=== PATIENT | male | born 1950 | race Caucasian/White ===

== ENCOUNTER → 2021-03-10 | Outpatient (CLI) | payer MEDICARE ==
--- NOTE | 2021-03-10 11:55 | ECHOF ---
Referral Reason:CAD MEASUREMENTS -------- HEIGHT: 182.9 cm WEIGHT: 102.1 kg BP: 133/87 RVIDd: 3.4 cm (< 3.3) IVSd: 1.2 cm (0.6 - 1.1) LVIDd: 5.0 cm (3.9 - 5.3) LVPWd: 1.2 cm (0.6 - 1.1) IVSs: 1.4 cm LVIDs: 4.5 cm LVPWs: 1.6 cm LA Diam: 3.8 cm (2.7 - 3.8) LAESV Index (A-L): 20.32 ml/m Ao Diam: 3.7 cm (2.0 - 3.7) AV Cusp: 2.0 cm (1.5 - 2.6) MV EXCURSION: 22.907 mm (> 18.000) MV EF SLOPE: 191 mm/s (70 - 150) EPSS: 2.1 cm FINDINGS -------- Atrial fibrillation. This was a technically adequate study. The left ventricular size is normal. There is borderline concentric left ventricular hypertrophy. Overall left ventricular systolic function is moderate-severely impaired with, an EF between 30 - 35 %. The right ventricle is mildly enlarged. Normal LA size by volume 22+/-6 ml/m2. The right atrium is normal in size. Interatrial and interventricular septum intact. The aortic valve is trileaflet, and appears structurally normal. No aortic stenosis or regurgitation. The mitral valve is normal. Mild tricuspid regurgitation present. Unable to estimate RVSP due to inadequate TR jet spectral dop pler profile. There is no pulmonic regurgitation present. The aortic root size is normal. Normal inferior vena cava with normal inspiratory collapse consistent with estimated right atrial pre ssure of 5 mmHg. There is no pericardial effusion. CONCLUSIONS -------- 1. The left ventricular size is normal. 2. There is borderline concentric left ventricular hypertrophy. 3. Overall left ventricular systolic function is moderate-severely impaired with, an EF between 30 - 35 %. 4. The right ventricle is mildly enlarged. 5. The aortic valve is trileaflet, and appears structurally normal. No aortic stenosis or regurgitati on. 6. Mild tricuspid regurgitation present. 7. The aortic root size is normal. 8. There is no pericardial effusion. COMMISSIONING AGENT: Sachi Oscar RDCS
== END | disposition home or self-care (01) ==
LOC: RADECHMAIN 08:39
PROVIDERS: ATTEND Family Medicine
DX: I25.10 Atherosclerotic heart disease of native coronary artery without angina pectoris (principal); I51.7 Cardiomegaly; I35.8 Other nonrheumatic aortic valve disorders; I48.91 Unspecified atrial fibrillation
CPT/HCPCS: 93306

== ENCOUNTER → 2021-03-10 | Outpatient (CLI) | payer MEDICARE ==
[2021-03-10 08:46] LABS: Appearance,Urine Clear (Clear); Bacteria,Urine Rare /hpf; Bilirubin,Urine 1+ (Negative); Blood,Urine Negative (Negative); Color,Urine Yellow; Glucose,Urine (UA) Negative (Negative); Hyaline Casts,Urine 15 /lpf (0-2); Ketones,Urine 1+ (Negative); Leukocyte Esterase,Urine Negative (Negative); Mucus,Urine Occasional /hpf; Nitrite,Urine Negative (Negative); Protein,Urine 1+ (Negative); WBC,Urine 1 /hpf (0-5)
[2021-03-10 11:02] LABS: HCT 43.1 % (39.6-50.0); HGB 13.8 g/dL (13.0-17.0); MCH 34.1 pg (27.0-32.0); MCV 106.4 fL (80.0-97.0); Mean Platelet Volume 11.5 fL (9.5-12.2); Platelet Count 144 X 10*3/uL (140-440); RBC 4.05 X 10*6/uL (4.40-5.60); RDW 13.2 % (11.5-14.5); WBC 5.45 X 10*3/uL (4.50-10.00)
[2021-03-10 13:01] LABS: Basophils # (A) 0.02 X 10*3/uL (0.00-0.10); Basophils % (A) 0.4 %; Eosinophils # (A) 0.05 X 10*3/uL (0.04-0.35); Eosinophils % (A) 0.9 %; Lymphocytes # (A) 1.67 X 10*3/uL (0.90-5.00); Lymphocytes % (A) 30.6 %; Monocytes # (A) 0.56 X 10*3/uL (0.20-1.00); Monocytes % (A) 10.3 %; Neutrophils # (A) 3.13 X 10*3/uL (1.80-7.70); Neutrophils % (A) 57.4 %
[2021-03-10 13:10] LABS: ALT 36 U/L (10-49); AST 33 U/L (14-35); African American GFR (CKD) 87.4 (60.0-200.0); Albumin 3.9 g/dL (3.8-4.9); Albumin/Globulin Ratio 1.63 (1.60-3.17); Alkaline Phosphatase 55 U/L (41-126); Blood Urea Nitrogen 12.2 mg/dL (9.0-27.0); Calcium 9.5 mg/dL (8.7-10.3); Carbon Dioxide 26.2 mmol/L (21.6-31.8); Chloride 103 mmol/L (96-109); Chol/HDL Ratio 1.93 Ratio; Globulin 2.4 g/dL (1.6-3.3); Glucose 91 mg/dL (70-110); LDL Cholesterol,Calculated 62.2 mg/dL (0.0-131.0); Non-African American GFR(CKD) 75.4 (60.0-200.0); Potassium 4.8 mmol/L (3.5-5.5); Sodium 141 mmol/L (135-145); Total Protein 6.3 g/dL (6.2-8.2); VLDL Calculation 15.52 mg/dL (5.00-40.00)
== END | disposition home or self-care (01) ==
LOC: LABWHC1 07:25
PROVIDERS: ATTEND Family Medicine
DX: Z00.00 Encounter for general adult medical examination without abnormal findings (principal)
CPT/HCPCS: 36415; 80053; 80061; 81001; 85025

== ENCOUNTER → 2021-03-17 | Outpatient (CLI) | payer MEDICARE | END | disposition home or self-care (01) | LOC: LABWHC1 07:13 | PROVIDERS: ATTEND Psychiatry & Neurology Neurology | DX: I48.21 Permanent atrial fibrillation (principal); I61.9 Nontraumatic intracerebral hemorrhage, unspecified; R56.9 Unspecified convulsions | CPT/HCPCS: 36415; 80164; 80177 ==

== ENCOUNTER → 2021-03-27 | Outpatient (CLI) | payer MEDICARE ==
[2021-03-27 11:13] LABS: HCT 42.1 % (39.0-53.0); HGB 14.4 gm/dL (13.0-17.5); MCH 36.3 pg (25.0-35.0); MCHC 34.3 g/dL (31.0-37.0); MCV 105.9 fL (80.0-100.0); Macrocytosis Moderate; Mean Platelet Volume 8.3; Platelet Count 124 k/uL (150-450); RBC 3.98 m/uL (4.30-5.90); RDW 14.6 % (11.5-15.5); WBC 6.2 k/uL (3.8-10.6)
[2021-03-27 11:22] LABS: Potassium 5.2 mmol/L (3.5-5.1)
== END | disposition home or self-care (01) ==
LOC: LABPAT 09:47
PROVIDERS: ATTEND Internal Medicine
DX: Z01.812 Encounter for preprocedural laboratory examination (principal); I42.0 Dilated cardiomyopathy
CPT/HCPCS: 36415; 80051; 82565; 84520; 85027

== ENCOUNTER 2021-04-06 06:07 | Day surgery (SDC) | payer MEDICARE ==
[2021-04-05 09:25] VITALS: BMI 29.0
[~2021-04-06 06:07] MED LIST: ALPRAZolam 0.25 MG TAB PO PRN; ALPRAZolam 0.5 MG TAB PO PRN; ASPIRIN 325 MG TAB PO STA; NITROGLYCERIN SL TABS 0.4 MG TAB SUBLINGUAL PRN; SODIUM CHLORIDE 0.9% 1,000 ML in EMPTY BAG 1 BAG IV SCH
[2021-04-06] MEDS ORDERED: HEPARIN SODIUM,PORCINE 10,000 UNIT in SODIUM CHLORIDE 0.9% 1,000 ML IRRIGATION PRN (07:00)
[2021-04-06] MEDS ORDERED: HEPARIN SODIUM,PORCINE 2,500 UNIT in SODIUM CHLORIDE 0.9% 250 ML IRRIGATION PRN (07:00)
[2021-04-06 07:23] LABS: Basophils % (A) 1 %; Eosinophils # (A) 0.1 k/uL (0-0.7); Eosinophils % (A) 2 %; HCT 42.1 % (39.0-53.0); HGB 14.3 gm/dL (13.0-17.5); Lymphocytes # (A) 2.1 k/uL (1.0-4.8); Lymphocytes % (A) 31 %; MCH 35.7 pg (25.0-35.0); MCHC 33.9 g/dL (31.0-37.0); MCV 105.3 fL (80.0-100.0); Macrocytosis Slight; Mean Platelet Volume 8.8; Monocytes % (A) 14 %; Neutrophils # (A) 3.4 k/uL (1.3-7.7); Neutrophils % (A) 50 %; Platelet Count 148 k/uL (150-450); RBC 3.99 m/uL (4.30-5.90); WBC 6.8 k/uL (3.8-10.6)
[2021-04-06] MEDS ORDERED: VERAPAMIL 2.5 MG/ML 2 ML AMP ONE ×2 (07:25→08:26)
[2021-04-06] MEDS ORDERED: LIDOCAINE 1% INJ 10MG/ML (20 ML MDV) ONE (07:25)
[2021-04-06 07:33] VITALS: TEMP 97.8
[2021-04-06 07:35] LABS: Calcium 9.8 mg/dL (8.4-10.2); Potassium 4.4 mmol/L (3.5-5.1)
[2021-04-06] MEDS ORDERED: HEPARIN SODIUM 1,000 UN/ML (10ML VL) ONE (07:49)
[2021-04-06] MEDS ORDERED: LIDOCAINE 1% INJ 10MG/ML (20 ML MDV) SQ ONE (08:20)
[2021-04-06] MEDS ORDERED: fentaNYL (PF) 50 MCG/ML 5 ML AMP IV ONE (08:20)
[2021-04-06] MEDS: MIDAZOLAM 2 MG/2 ML VIAL IV ONE ×2 (08:20→08:26)
[2021-04-06] MEDS ORDERED: VERAPAMIL SYRINGE (5 MG/10 ML) INTRAARTER ONE (08:22)
[2021-04-06] MEDS ORDERED: HEPARIN SODIUM 1,000 UN/ML (10ML VL) IV ONE (08:29)
[2021-04-06] MEDS ORDERED: IOPAMIDOL-370 125ML BTL INJ ONE (08:40)
[2021-04-06 10:56] VITALS: RESP 16
[2021-04-06 12:02] VITALS: BP 95/59; PULSE 78
--- NOTE | 2021-04-06 23:01 | P.CARDCATH ---
Description of Procedure: PROCEDURES PERFORMED: Left heart catheterization, bilateral coronary angiography INDICATION: Cardiomyopathy CONSENT:I have discussed the risks, benefits and alternative therapies for the above-mentioned procedure and for both sedation/analgesia as well as necessary blood product administration, if indicated, as they pertain to this patient. The patient has indicated understanding and acceptance of the risks and procedures discussed. PROCEDURE: After the risks, benefits and alternatives of the above mentioned procedure explained in detail with the patient, informed consent was obtained. Patient was taken to the catheterization lab and prepped and draped in usual fashion. 1% lidocaine was used to anesthetize the right radial artery. A 6- Lithuanian sheath was placed in the right radial artery using modified Seldinger technique. Left coronary angiography was performed with a 5-Lithuanian JL 3.5 catheter and right coronary angiography was performed with a 5-Lithuanian JR5 catheter in various views. A 5-Lithuanian FR5 catheter was inserted into the left ventricle and pressure measurements were obtained. The right radial sheath was removed and a TR band was placed with hemostasis achieved. The patient tolerated the procedure well. Patient was transported back to the post catheterization holding area in stable condition. Conscious Sedation: Patient was monitored under the direct supervision of vision of myself for conscious sedation using Versed and fentanyl for a total duration of 18 minutes HEMODYNAMICS: Aorta: 92/60 LV: 88/1, LVEDP 4 SELECTIVE CORONARY ARTERIOGRAPHY: LEFT MAIN: The left main is a large caliber vessel which bifurcates into the LAD and circumflex. There is no significant stenosis. LEFT ANTERIOR DESCENDING CORONARY ARTERY: LAD is a large caliber vessel which wraps around to the apex. There is no significant stenosis. LEFT CIRCUMFLEX CORONARY ARTERY: Left circumflex is a moderate caliber vessel without significant stenosis. RIGHT CORONARY ARTERY: The right coronary artery is a large caliber vessel which gives off a PDA and PLV branch and is the dominant vessel. There is no significant stenosis. FINAL IMPRESSION: 1. Normal coronary arteries as described above. 2. Low normal left sided filling pressures PLAN: 1. Aggressive risk factor modification per most recent ACC/AHA guidelines. 2. Optimize heart failure regimen as able. May consider decreasing diuretics. 3. Follow-up in the office in 1-2 weeks.
== END 2021-04-06 12:53 | disposition home or self-care (01) ==
LOC: CATHCVL 06:07
PROVIDERS: ATTEND Internal Medicine
DX: I42.9 Cardiomyopathy, unspecified (principal); I11.0 Hypertensive heart disease with heart failure; I50.23 Acute on chronic systolic (congestive) heart failure; E78.5 Hyperlipidemia, unspecified; I48.92 Unspecified atrial flutter; I48.19 Other persistent atrial fibrillation; Z86.73 Personal history of transient ischemic attack (TIA), and cerebral infarction without residual deficits; Z20.822 Contact with and (suspected) exposure to COVID-19; F17.210 Nicotine dependence, cigarettes, uncomplicated
CPT/HCPCS: 93458; 80048; 85025; 87635; C1894; C1769; J2250; J2001; J3010; J1644; Q9967

== ENCOUNTER → 2021-08-16 | Outpatient (CLI) | payer MEDICARE ==
--- NOTE | 2021-08-16 12:06 | CT ---
EXAMINATION TYPE: CT brain gracy [facility] DATE OF EXAM: 08/16/2021 COMPARISON: NONE HISTORY: TIA symptoms, unspecified for 4 days. History of stroke 2016. Unsteady gait. CT DLP: 1877 mGycm. Automated Exposure Control for Dose Reduction was Utilized. TECHNIQUE: CT scan of the head and cervical spine are performed without contrast. FINDINGS: There is no acute intracranial hemorrhage. Mild to moderate ventricular and sulcal promin ence. Old infarct in the left frontal lobe MCA distribution. Volume loss causes slight midline shift. Low-attenuation in the periventricular white matter. Globes are intact and visualized paranasal sinu ses are clear. Cervical spine is visualized in its entirety from C1 through upper thoracic levels and demonstrates s atisfactory alignment without evidence of acute fracture or dislocation. Demineralization is present . Prevertebral soft tissue appears within normal limits. The C1-C2 articulation is within normal armando its on the coronal images. Vertebral body heights are maintained. Moderate disc space narrowing with disc calcification C5-C6 and C6-C7 levels. Moderate to severe disc space narrowing and anterior spurr ing C7-T1 level. Posterior spur disc complex effaces the anterior thecal sac C5-C6 and C7-T1 levels. Axial images show multilevel uncovertebral facet degenerative changes contributing to multilevel bila teral neural foraminal narrowing noted at right C2-C3 and bilateral C3-C4 levels for reference. There is [id number] narrowing at right C5-C6 level due to marginal spurring. Thyroid gland is norm al in size. Lung apices show no pneumothorax. Moderate to severe calcified plaque left carotid bulb e xtends into the proximal internal carotid artery. Consider carotid ultrasound follow-up to exclude si gnificant stenosis. IMPRESSION: 1. There is mild to moderate diffuse cerebral atrophy and chronic small vessel ischemic change. Old l eft-sided infarct with volume loss noted. 2. Demineralization with multilevel degenerative changes greatest in the mid to lower cervical spine as detailed above. Attention to left proximal internal carotid artery as noted above.
== END | disposition home or self-care (01) ==
LOC: RADCTMAIN 08:28
PROVIDERS: ATTEND Family Medicine
DX: I67.82 Cerebral ischemia (principal); M47.812 Spondylosis without myelopathy or radiculopathy, cervical region; G31.9 Degenerative disease of nervous system, unspecified; Z86.73 Personal history of transient ischemic attack (TIA), and cerebral infarction without residual deficits
CPT/HCPCS: 70450; 72125

== ENCOUNTER → 2021-08-25 | Outpatient (CLI) | payer MEDICARE ==
--- NOTE | 2021-08-25 13:10 | US ---
EXAMINATION TYPE: US carotid duplex BILAT DATE OF EXAM: 08/25/2021 COMPARISON: NONE CLINICAL HISTORY: G45.9 TIA I48.91 ATRIAL FIB. EXAM MEASUREMENTS: RIGHT: Peak Systolic Velocity (PSV) cm/sec ----- Right CCA: 71.0 ----- Right ICA: 86.5 ----- Right ECA: 81.2 ICA/CCA ratio: 1.22 RIGHT: End Diastole cm/sec ----- Right CCA: 9.7 ----- Right ICA: 7.5 ----- Right ECA: 5.9 LEFT: Peak Systolic Velocity (PSV) cm/sec ----- Left CCA: 58.6 ----- Left ICA: 93.5 ----- Left ECA: 66.1 ICA/CCA ratio: 1.52 LEFT: End Diastole cm/sec ----- Left CCA: 7.5 ----- Left ICA: 20.4 ----- Left ECA: 3.2 VERTEBRALS (direction of flow): Right Vertebral: Antegrade Left Vertebral: Antegrade Rhythm: Normal No significant stenosis seen. No elevated velocities. IMPRESSION: No evidence for hemodynamically significant stenosis Criteria for Assigning % of Stenosis / Diameter reduction (Estimation based on the indirect measurements of the internal carotid artery velocities (ICA PSV). 1. Normal (no stenosis)=ICA PSV < 125 cm/s: ratio < 2.0: ICA EDV<40 cm/s. 2. Less than 50% stenosis=ICA PSV < 125 cm/s: ratio < 2.0: ICA EDV<40 cm/s. 3. 50 to 69% stenosis=ICA PSV of 125 to 230 cm/s: ration 2.0 ? 4.0: ICA EDV 40-100 cm/s. 4. Greater than 70% stenosis to near occlusion= ICA PSV > 230 cm/s: ratio > 4.0: ICA EDV > 100 cm/s. 5. Near occlusion= ICA PSV velocities may be low or undetectable: variable ratio and ICA EDV. 6. Total occlusion=unable to detect flow.
== END | disposition home or self-care (01) ==
LOC: RADUSWWP 12:35
PROVIDERS: ATTEND Family Medicine
DX: G45.9 Transient cerebral ischemic attack, unspecified (principal); I48.91 Unspecified atrial fibrillation
CPT/HCPCS: 93880

== ENCOUNTER → 2021-10-02 | Outpatient (CLI) | payer MEDICARE ==
--- NOTE | 2021-10-02 09:47 | CT ---
EXAMINATION TYPE: CT cervical spine wo con DATE OF EXAM: 10/02/2021 COMPARISON: CT dated 08/16/2021 HISTORY: Cervicalgia CT DLP: 400.10 mGycm Automated exposure control for dose reduction was used. TECHNIQUE: CT scan of the cervical spine is obtained without contrast, axial images are obtained, sa gittal and coronal reformatted images are also reviewed. FINDINGS: Artifactual images. Preserved cervical curvature. No significant anterolisthesis or retrolisthesis. No definite vertebral body collapse. Unremarkable atlantoaxial and atlantooccipital articulations. Degenerative changes of the cervical spine with multilevel opposing endplate osteophytosis, degenerat ed discs and uncovertebral osteoarthropathy, most evident at C5-6, C6-7, C7-T1 and T1-2 levels. Multi level facet osteoarthropathy is also noted most evident at right C2-3 facet. At C2-3 level: Bilateral facet osteoarthropathy with small posterior disc osteophyte complex, causing mild central spinal canal stenosis and moderate to severe right neuroforaminal stenosis. At C3-4 level: Posterior disc osteophyte complex, associated with bilateral facet osteoarthropathy, m ore on the right side, causing moderate central spinal canal stenosis and moderate bilateral neurofor aminal stenosis, more on the right side. At C4-5 level: Posterior disc osteophyte complex with mild bilateral facet osteoarthropathy, causing mild central spinal canal stenosis and mild right neuroforaminal stenosis. At C5-6 level: Posterior disc osteophyte complex associated with bilateral facet osteoarthropathy, ca using moderate central spinal canal stenosis, moderate to severe left and severe right neuroforaminal stenosis. At C6-7 level: Posterior disc osteophyte complex, causing mild central spinal canal stenosis and mode rate bilateral neuroforaminal stenosis. Suspected 9 mm polyp/retention cyst along the right side of the oropharynx, for clinical correlation/ correlation with endoscopy results. Scattered arterial atherosclerotic calcifications. Suspected 2 cm left thyroid lobe posterior nodule, please correlate with thyroid ultrasound results. No paraspinal lesion. IMPRESSION: Degenerative changes of the cervical spine with multilevel DDD, central spinal canal stenosis and lisa roforaminal stenosis as detailed above. Recommend clinical correlation. Further MRI assessment can be considered if clinically required. Other incidental findings and recommendations as described above.
--- NOTE | 2021-10-02 10:30 | CT ---
EXAMINATION TYPE: CT thoracic spine wo con DATE OF EXAM: 10/02/2021 COMPARISON: None available HISTORY: Thoracic pain CT DLP: 1615.40 mGycm Automated exposure control for dose reduction was used. TECHNIQUE: Multiplanar CT scan of the thoracic spine without IV contrast administration. FINDINGS: Mild dextro scoliosis of the midthoracic spine, possibly positional. No significant anterolisthesis o r retrolisthesis. No definite vertebral body collapse or acute displaced fracture. Degenerative diaz es of the thoracic spine with multilevel opposing endplate osteophytosis, degenerated discs, disc jacinta cification and facet osteoarthropathy. Severe degenerative changes are seen at L1-2 level. At C6-7 level: left paracentral posterior disc protrusion with calcification, causing no significant central spinal canal stenosis or neuroforaminal stenosis. At T11-12 level: Marked ligamentum flavum hypertrophy and calcification, causing moderate central spi nal canal stenosis and bilateral neuroforaminal stenosis. At T12-L1 level: Posterior disc osteophyte complex, causing mild central spinal canal stenosis and mi ld bilateral neuroforaminal stenosis, more on the right side. At L1-2 level: Markedly degenerated disc with large posterior osteophytosis, ligamentum flavum hypert rophy and bilateral facet osteoarthropathy, causing severe central spinal canal stenosis and severe b ilateral neuroforaminal stenosis compressing the corresponding L1 nerve root. No paraspinal lesion. Scattered arterial atherosclerotic calcifications. Hepatic hypodensities, possi sindhu representing hepatic cysts. Suspected tiny gallbladder calculus. 17 mm left adrenal adenoma. 8mm left lower lobe posterior pleural-based nodule. Minimal infiltration is seen at the central portion o f the left lower lobe. Recommend precautionary follow-up CT scan in 3 months for reassessment. IMPRESSION: Degenerative changes of the thoracic spine as detailed above. Significant degenerative changes, spina l canal stenosis and neuroforaminal stenosis at L1-2 level as described above. Recommend clinical cor relation. Further MRI assessment can be considered. Other incidental findings and recommendations as detailed above.
== END | disposition home or self-care (01) ==
LOC: RADCTMAIN 08:07
PROVIDERS: ATTEND Orthopaedic Surgery
DX: M47.812 Spondylosis without myelopathy or radiculopathy, cervical region (principal); M99.71 Connective tissue and disc stenosis of intervertebral foramina of cervical region; M47.814 Spondylosis without myelopathy or radiculopathy, thoracic region; M99.74 Connective tissue and disc stenosis of intervertebral foramina of sacral region
CPT/HCPCS: 72125; 72128

== ENCOUNTER → 2021-10-20 | Outpatient (CLI) | payer MEDICARE | END | disposition home or self-care (01) | LOC: LABWHC1 07:19 | PROVIDERS: ATTEND Psychiatry & Neurology Neurology | DX: R56.9 Unspecified convulsions (principal) | CPT/HCPCS: 36415; 80164; 80177 ==

== ENCOUNTER → 2021-12-22 | Outpatient (CLI) | payer MEDICARE ==
--- NOTE | 2021-12-22 08:03 | CT ---
EXAMINATION TYPE: CT lumbar spine wo con DATE OF EXAM: 12/22/2021 6:59 AM COMPARISON: None. HISTORY: Pain, Difficulty walking CT DLP: 744.8 mGycm Automated exposure control for dose reduction was used. Unenhanced CT of the lumbar spine was performed. Bone and soft tissue window settings are submitted as well as coronal and sagittal reconstructions. There are 5 lumbar-type vertebra. There is levoconvex scoliosis centered near the thoracolumbar junct ion. Alignment is straightened on the sagittal images with slight grade 1 retrolisthesis L1 on L2 and L3 on L4 noted. Vertebral body heights are maintained. There is advanced disc space narrowing with v acuum disc phenomenon and moderate anterior and lateral spurring at L3-L4 level. There is advanced di sc space narrowing with vacuum disc phenomenon and moderate left lateral spurring at the L4-L5 level. There is advanced disc space narrowing and vacuum disc phenomenon along with left-sided endplate scl erosis at the L5-S1 level. There is moderate disc space narrowing with severe anterior and lateral sp urring and vacuum disc phenomenon at the L1-L2 level. Additional scattered large anterior and lateral osteophytes are present. Axial images at the T12-L1 level show posterior spur disc complex effacing the anterior thecal sac an d mild to moderate facet arthropathy effacing the posterolateral thecal sac. Neural foramina are vinicius sly patent. Axial images at the L1-L2 level show moderate broad-based posterior spur disc complex effacing the an terior thecal sac along with mild/moderate facet arthropathy and ligamentum flavum hypertrophy effaci ng the posterolateral thecal sac on axial image 22. Mild right-sided neural foraminal narrowing is pr esent. Axial images at the L2-L3 level shows advanced facet arthropathy effacing the posterior thecal sac an d moderate to advanced broad-based disc bulge effacing the anterior thecal sac with more prominent ri ght foraminal component causing mild right-sided neural foraminal narrowing. There is [id number] e left-sided neural foraminal narrowing on sagittal images. Axial images at the L3-L4 level shows moderate facet arthropathy effacing the posterolateral thecal s ac. There is spur disc complex effacing the anterior thecal sac. There is mild to moderate right-side d neural foraminal narrowing seen. Axial images at the L4-L5 level show moderate facet arthropathy bilaterally. There is posterior spur disc complex. There is mild to moderate bilateral anterior inferior neural foraminal narrowing. Axial images at the L5-S1 level show [id number] facet arthropathy bilaterally. Posterior spurri ng is present mildly effacing the anterior thecal sac. There is moderate bilateral neural foraminal n arrowing noted. Mild vascular calcification of aorta extends into branch vessels. From lower pole left kidney there i s a partially exophytic thin-walled cyst with thin curvilinear calcification in the wall measuring 3. 6 cm long axis sagittal image 63, Bosniak type II lesion. Small 1.5 cm left adrenal mass of low densi ty favoring benign lipid rich adenoma axial image 5, Hounsfield units average -10. IMPRESSION: Loss of normal lumbar lordosis. Multilevel spondylolisthesis and degenerative changes in the lumbar spine as detailed above.
== END | disposition home or self-care (01) ==
LOC: RADCTMAIN 06:04
PROVIDERS: ATTEND Family Medicine
DX: M47.817 Spondylosis without myelopathy or radiculopathy, lumbosacral region (principal); M99.74 Connective tissue and disc stenosis of intervertebral foramina of sacral region; M43.16 Spondylolisthesis, lumbar region; M40.56 Lordosis, unspecified, lumbar region
CPT/HCPCS: 72131

== ENCOUNTER 2021-12-25 09:47 | Inpatient (IN) | payer MEDICARE ==
[2021-12-25] MEDS ORDERED: SODIUM CHLORIDE 0.9% 1,000 ML IV STA (10:07)
[2021-12-25] MEDS ORDERED: ATROPINE SULFATE 0.1 MG/ML 10ML SYRINGE IV STA (10:12)
--- NOTE | 2021-12-25 10:16 | ED ---
General Adult HPI - General Chief complaint: Weakness Stated complaint: trouble walking, head & neck pain Time Seen by Provider: 12/25/21 10:00 Source: patient Mode of arrival: ambulatory Limitations: no limitations - History of Present Illness Initial comments: Dictation was produced using [employer] dictation software. please excuse any grammatical, word or spelling errors. Chief Complaint: 71-year-old male presents emergency department for frequent falls, difficulty ambulating generalized weakness, headache neck pain and chest pain History of Present Illness: This 71-year-old male has multiple comorbidities. Patient is history of A. fib, CVA, DVTs, pulmonary embolism, seizure disorder. Patient presents emergency department today for chief complaint of frequent falls, multiple pain complaints for the last 4 days. Patient has a history of stroke in 2017 that cause residual speech deficits. He does not have any extremity weakness or any other deficits according to patient and . reports that patient last 4 days has been seemingly weak and having frequent falls. Patient states he feels weak. Denies any numbness, paresthesias to the arms or legs. He is noted to be shuffling's feet causing him to fall. Patient denies any extremity pain. Complains of neck pain headache and chest pain. Does not have any chest pain or headache at this time. He does complain of posterior neck pain. The ROS documented in this emergency department record has been reviewed and confirmed by me. Those systems with pertinent positive or negative responses have been documented in the HPI. All other systems are other negative and/or noncontributory. PHYSICAL EXAM: General Impression: Alert and oriented x3, not in acute distress HEENT: Normocephalic atraumatic, extra-ocular movements intact, pupils equal and reactive to light bilaterally, mucous membranes moist. Cardiovascular: Heart regular rate and rhythm Chest: Able to complete full sentences, no retractions, no tachypnea Abdomen: abdomen soft, non-tender, non-distended, no organomegaly Musculoskeletal: Pulses present and equal in all extremities, no peripheral edema Motor: no focal deficits noted Neurological: CN II-XII grossly intact, no focal motor or sensory deficits noted, dysarthric, gait examination deferred Skin: Intact with no visualized rashes Psych: Normal affect and mood ED course: 71-year-old male presents emergency Department with multiple complaints. His complaints include generalized weakness, pain of the head neck and chest and frequent falls. All signs upon arrival shows heart rate of 51, blood pressure 86/51, rest of vital signs within acceptable limits. EKG shows heart rate of 40 with sinus bradycardia. Orthostatic vital signs shows orthostatic hypotension. Patient was given atropine with no improvement of heart rate. Laboratory evaluation obtained. CBC unremarkable. Coag panel and metabolic panel is unremarkable. Troponin is negative. No electrolyte derangement. Chest x-ray and computed tomography scan of the head and C-spine shows no acute processes. Patient reevaluated at 12:30 PM found to be in stable medical condition. Patient still bradycardic however denies any complaints. Patient denies any dizziness symptoms when standing. Recommended the patient that he should be admitted to the hospital for further care he was reluctant however ultimately agreed. At this point unclear what is causing patient's bradycardia. Differential includes sick sinus versus beta jenifer toxicity. Nonetheless patient's blood pressure remained stable. Patient given IV fluids. Patient be admitted to [facility] [place] [facility] with consultation to cardiology. EKG interpretation: Ventricular rate 40, sinus bradycardia, QRS 80, QTc 383 I do not agree with EKG interpretation of A. fib given that there are clear discernible P waves before each QRS complex. No OH prolongation, no QTC prolongation, no ST or T-wave changes noted. - Related Data Home Medications Medication Instructions Recorded Confirmed Aspirin 81 mg PO HS 04/05/21 04/06/21 Atorvastatin [Lipitor] 20 mg PO HS 04/05/21 04/06/21 Divalproex Sodium [Depakote] 500 mg PO TID 04/05/21 04/06/21 Furosemide [Lasix] 40 mg PO DAILY 04/05/21 04/06/21 Losartan Potassium [Cozaar] 25 mg PO DAILY 04/05/21 04/06/21 Metoprolol Succinate (ER) [Toprol 100 mg PO HS 04/05/21 04/06/21 Xl] Pantoprazole [Protonix] 40 mg PO DAILY 04/05/21 04/06/21 Potassium Chloride [K-Tab ER] 10 meq PO DAILY 04/05/21 04/06/21 clonazePAM [KlonoPIN] 0.5 mg PO BID PRN 04/05/21 04/05/21 levETIRAcetam [Keppra] 1,500 mg PO Q12HR 04/05/21 04/06/21 Allergies Allergy/AdvReac Type Severity Reaction Status Date / Time No Known Allergies Allergy Verified 12/25/21 09:57 Review of Systems ROS Statement: Those systems with pertinent positive or pertinent negative responses have been documented in the HPI. ROS Other: All systems not noted in ROS Statement are negative. Past Medical History Past Medical History: Atrial Fibrillation, CVA/TIA, Deep Vein Thrombosis (DVT), GERD/Reflux, Pulmonary Embolus (PE), Seizure Disorder Additional Past Medical History / Comment(s): CVA 2016-has difficulty with speech at times,DVT rt leg and Rt PE 2016,uses a cane,last seizure Nov 2019 History of Any Multi-Drug Resistant Organisms: None Reported Past Surgical History: Back Surgery, Joint Replacement Additional Past Surgical History / Comment(s): juan knee replacements Past Anesthesia/Blood Transfusion Reactions: No Reported Reaction Past Psychological History: No Psychological Hx Reported Smoking Status: Former smoker Past Alcohol Use History: None Reported Past Drug Use History: None Reported - Past Family History Mother Family Medical History: Myocardial Infarction ([place]) General Exam Limitations: no limitations Course Vital Signs 12/25/21 12/25/21 12/25/21 09:51 10:59 12:19 Temperature 98.1 F 98.6 F Pulse Rate 51 L 37 L Pulse Rate [ 60 Right Prone Pulse Oximetery ] Pulse Rate [ 41 L Right Sitting Pulse Oximetery ] Pulse Rate [ 56 L Right Standing Pulse Oximetery ] Respiratory 16 16 16 Rate Blood Pressure 86/51 99/49 Blood Pressure 102/65 [Right Arm Sitting] Blood Pressure 93/75 [Right Arm Standing] Blood Pressure 86/48 [Right Arm Supine] O2 Sat by Pulse 99 96 97 Oximetry Medical Decision Making - Lab Data Result diagrams: 12/25/21 10:40 12/25/21 10:40 Lab Results 12/25/21 12/25/21 12/25/21 Range/Units 10:40 10:40 10:40 WBC 6.4 (3.8-10.6) k/uL RBC 3.81 L (4.30-5.90) m/uL Hgb 13.6 (13.0-17.5) gm/dL Hct 40.5 (39.0-53.0) % MCV 106.4 H (80.0-100.0) fL MCH 35.7 H (25.0-35.0) pg MCHC 33.5 (31.0-37.0) g/dL RDW 14.5 (11.5-15.5) % MPV 9.4 Macrocytosis Moderate PT 11.1 (9.0-12.0) sec INR 1.0 (<1.2) APTT 20.6 L (22.0-30.0) sec Sodium 137 (137-145) mmol/L Potassium 4.6 (3.5-5.1) mmol/L Chloride 103 (98-107) mmol/L Carbon Dioxide 29 (22-30) mmol/L Anion Gap 5 mmol/L BUN 15 (9-20) mg/dL Creatinine 1.14 (0.66-1.25) mg/dL Est GFR (CKD-EPI)AfAm 74 (>60 ml/min/1.73 sqM) Est GFR (CKD-EPI)NonAf 64 (>60 ml/min/1.73 sqM) Glucose 82 (74-99) mg/dL Plasma Lactic Acid Richi (0.7-2.0) mmol/L Calcium 9.0 (8.4-10.2) mg/dL Magnesium 2.1 (1.6-2.3) mg/dL Total Bilirubin 1.0 (0.2-1.3) mg/dL AST 32 (17-59) U/L ALT 27 (4-49) U/L Alkaline Phosphatase 54 (38-126) U/L Troponin I (0.000-0.034) ng/mL Total Protein 6.4 (6.3-8.2) g/dL Albumin 3.5 (3.5-5.0) g/dL 12/25/21 12/25/21 Range/Units 10:40 10:40 WBC (3.8-10.6) k/uL RBC (4.30-5.90) m/uL Hgb (13.0-17.5) gm/dL Hct (39.0-53.0) % MCV (80.0-100.0) fL MCH (25.0-35.0) pg MCHC (31.0-37.0) g/dL RDW (11.5-15.5) % MPV Macrocytosis PT (9.0-12.0) sec INR (<1.2) APTT (22.0-30.0) sec Sodium (137-145) mmol/L Potassium (3.5-5.1) mmol/L Chloride (98-107) mmol/L Carbon Dioxide (22-30) mmol/L Anion Gap mmol/L BUN (9-20) mg/dL Creatinine (0.66-1.25) mg/dL Est GFR (CKD-EPI)AfAm (>60 ml/min/1.73 sqM) Est GFR (CKD-EPI)NonAf (>60 ml/min/1.73 sqM) Glucose (74-99) mg/dL Plasma Lactic Acid Richi 1.5 (0.7-2.0) mmol/L Calcium (8.4-10.2) mg/dL Magnesium (1.6-2.3) mg/dL Total Bilirubin (0.2-1.3) mg/dL AST (17-59) U/L ALT (4-49) U/L Alkaline Phosphatase (38-126) U/L Troponin I <0.012 (0.000-0.034) ng/mL Total Protein (6.3-8.2) g/dL Albumin (3.5-5.0) g/dL Disposition Clinical Impression: Bradycardia Disposition: ADMITTED IP TO THIS HOSP Condition: Serious Referrals: Azam Charlton [Primary Care Provider] - 1-2 days Decision Time: 12:26
--- NOTE | 2021-12-25 10:42 | CT ---
EXAMINATION TYPE: CT brain cspine wo con CT DLP: 1311.7 mGycm, Automated exposure control for dose reduction was used. DATE OF EXAM: 12/25/2021 10:28 AM COMPARISON: CT brain C-spine 08/16/2021. CLINICAL INDICATION:Male, 71 years old with history of chest pain; pain after recent falls. Hx of TIA s TECHNIQUE: Brain: Multiple axial CT images of the brain were obtained without IV contrast. Cspine: Axial CT images from the skull base to the inferior aspect of T2 we obtained without intraven ous contrast. Coronal and sagittal reformatted images were also reviewed. FINDINGS: Brain: Extra-axial spaces: No abnormal extra-axial fluid collections. Ventricular system: Dilatation in proportion to cerebral atrophy. Cerebral parenchyma: No acute intraparenchymal hemorrhage or mass effect. The ortega-white junction is well differentiated. Scattered hypoattenuating areas are seen within the white matter. Remote infar ct in the left frontal lobe MCA distribution. Cerebral volume loss. Cerebellum: Unremarkable. Mass effect: No evidence of midline shift. Intracranial vasculature: Atherosclerotic calcifications of the intracranial vessels. Soft tissues: Normal. Calvarium/osseous structures: No depressed skull fracture. Paranasal sinuses and mastoid air cells: Clear. Visualized orbits: Orbital contents are intact. Cervical spine: Fracture: None. Osseous structures: Multilevel degenerative disc disease changes with endplate spurring and disc oste ophyte complex's. Vertebral alignment: Within normal limits. Spinal canal/Neural Foramina: Disc osteophyte complexes at C5-C6 with at least mild spinal canal sten osis. Facet joint uncovertebral joint arthropathy scattered throughout the cervical spine with varyin g degrees of neural foraminal stenosis. Neck soft tissues: Prevertebral soft tissues are within normal limits. Other: The airway is patent. The lung apices are clear. Vascular sclerosis. IMPRESSION: 1. No acute intracranial process. 2. Nonspecific white matter changes, likely secondary to chronic small vessel ischemic disease. 3. Remote left MCA distribution infarct. 4. No evidence of cervical spine fracture. 5. Moderate multilevel degenerative disc disease.
--- NOTE | 2021-12-25 10:54 | XR ---
EXAMINATION TYPE: XR chest 2V DATE OF EXAM: 12/25/2021 10:30 AM COMPARISON: CT thoracic spine 10/02/2021. TECHNIQUE: XR chest 2V Frontal and lateral views of the chest. CLINICAL INDICATION:Male, 71 years old with history of chest pain; FINDINGS: Lungs/Pleura: There is flattening of the diaphragm with increased lucency of the lungs. No evidence o f pneumothorax or focal consolidation. Trace bilateral pleural effusions. Pulmonary vascularity: Unremarkable. Heart/mediastinum: Cardiomediastinal silhouette is unremarkable. Loop recorder overlies mediastinum. Musculoskeletal: Multiple level degenerative disc disease changes seen throughout the spine. No acute osseous abnormality. IMPRESSION: 1. Trace bilateral pleural effusions without focal consolidation. 2. COPD changes.
[2021-12-25 11:15] LABS: Albumin 3.5 g/dL (3.5-5.0); Magnesium 2.1 mg/dL (1.6-2.3); Potassium 4.6 mmol/L (3.5-5.1); Total Protein 6.4 g/dL (6.3-8.2)
[2021-12-25 11:16] LABS: Prothrombin Time 11.1 sec (9.0-12.0)
[2021-12-25 11:25] LABS: Basophils % (A) 0 %; Eosinophils # (A) 0.1 k/uL (0-0.7); Eosinophils % (A) 1 %; HCT 40.5 % (39.0-53.0); HGB 13.6 gm/dL (13.0-17.5); Lymphocytes % (A) 16 %; MCH 35.7 pg (25.0-35.0); MCHC 33.5 g/dL (31.0-37.0); MCV 106.4 fL (80.0-100.0); Macrocytosis Moderate; Mean Platelet Volume 9.4; Monocytes # (A) 0.8 k/uL (0-1.0); Monocytes % (A) 12 %; Neutrophils # (A) 4.4 k/uL (1.3-7.7); Neutrophils % (A) 69 %; RBC 3.81 m/uL (4.30-5.90); RDW 14.5 % (11.5-15.5); WBC 6.4 k/uL (3.8-10.6)
[2021-12-25 11:44] LABS: Partial Thromboplastin Time 20.6 sec (22.0-30.0)
[2021-12-25 12:06] LABS: Platelet Count 95 k/uL (150-450)
[2021-12-25] MEDS ORDERED: NALOXONE 0.4 MG/ML 1 ML VIAL IV PRN (12:18)
[2021-12-25] MEDS: SODIUM CHLORIDE 0.9% 1,000 ML IV SCH (12:28)
[2021-12-25 12:38] LABS: Crenated RBC Present
[2021-12-25] MEDS ORDERED: clonazePAM 0.5 MG TAB PO PRN (13:21)
--- NOTE | 2021-12-25 13:28 | P.HPIM ---
History of Present Illness H&P Date: 12/25/21 Patient is a 71-year-old male with PMH of seizure disorder, atrial fibrillation, history of CVA with speech impediment, hypertension, GERD presents the ED for generalized weakness and falls. His is at bedside to be into the history. Patient reports falls has been ongoing for the past week. He feels like his brain does not move with his feet. He denies any loss of consciousness or head trauma. He denies any lightheadedness. His reports that he has been sleeping 18-20 hours a day over the last couple of days. He denies any headache, lower extremity edema, nausea or vomiting, fever or chills, cough, chest pain, shortness of breath, palpitations, changes in urination or bowel beatty bits. No changes in appetite or weight. He denies any numbness/weakness/tingling of the extremities. Of note, patient recently moved from [place] and has established care with soaping machine back tender Dr. Conley. He currently has a loop recorder and watchman device. In the ED, his heart rate was noted to be as low as 37 bpm. His BP was as low as 80s over 40s. CBC showed MCV of 106.4 with platelet count of 95. INR was 1.0. CMP was unremarkable. Troponin was less than 0.012 with EKG showing atrial fibrillation with slow ventricular response. Chest x-ray show trace bilateral pleural effusion with COPD changes. CT head and C-spine showed no acute intracranial process, remote left MCA distribution infarct, moderate multilevel DJD. Patient is admitted for further management of his symptoms. Review of systems is performed and is negative except above. General: non toxic, no distress, appears at stated age Derm: warm, dry Head: atraumatic, normocephalic, symmetric Eyes: EOMI, no lid lag, anicteric sclera Mouth: no lip lesion, mucus membranes moist Cardiovascular: Irregularly irregular, heart rate of 37, no murmur Lungs: CTA bilateral, no rhonchi, no rales , no accessory muscle use Abdominal: soft, nontender to palpation, no guarding, no appreciable organomegaly Ext: no gross muscle atrophy, no edema, no contractures Neuro: CN II-XI grossly intact, no focal neuro deficits, speech impediment Psych: Alert, oriented, appropriate affect #Generalized weakness #Atrial fibrillation with slow ventricular response #Macrocytosis with thrombocytopenia Chronic conditions: Seizure disorder, history of CVA, hypertension, systolic CHF, GERD Patient presents with multiple mechanical falls. He denies any syncope. Telemetry in the ED is suggesting bradycardia with HR as low as 37. This could be related to Metoprolol toxicity. AV nallely blockers will be held and Cardiology will be consulted for further management of this patient. Continue telemetry monitoring. Fall precautions. PT and OT will be consulted to work with this patient. Continue Amiodarone. He is s/p watchman procedure. We will obtain B12 and Folate. Continue Cyanocobalamin. Thrombocytopenia could be related to Depakote. We will continue to monitor. Restart Depakote and Keppra for history of seizures. Restart ASA and Lipitor for history of CVA. Restart Losartan, Aldactone and Lasix for hypertension and stabl e systolic CHF. Restart Protonix for history of GERD. DVT prophylaxis: [SCDs] Discussed with: [Patient, ED physician] Anticipated discharge: [1-2 days] Anticipated discharge place: [Home] A total of [35] minutes was spent on the care of this complex patient more than 50% of the time was spent in counseling and care coordination. Patient names his Lucretia decision maker if he cant make decisions for himself. Patient would like to be FULL CODE. Past Medical History Past Medical History: Atrial Fibrillation, CVA/TIA, Deep Vein Thrombosis (DVT), GERD/Reflux, Pulmonary Embolus (PE), Seizure Disorder Additional Past Medical History / Comment(s): CVA 2017-has difficulty with speech at times,DVT rt leg and Rt PE 2017,uses a cane,last seizure Nov 2019 History of Any Multi-Drug Resistant Organisms: None Reported Past Surgical History: Back Surgery, Joint Replacement Additional Past Surgical History / Comment(s): juan knee replacements Past Anesthesia/Blood Transfusion Reactions: No Reported Reaction Past Psychological History: No Psychological Hx Reported Smoking Status: Former smoker Past Alcohol Use History: None Reported Past Drug Use History: None Reported - Past Family History Mother Family Medical History: Myocardial Infarction ([place]) Medications and Allergies Home Medications Medication Instructions Recorded Confirmed Type Divalproex Sodium [Depakote] 500 mg PO TID@0800,1400,2000 04/05/21 12/25/21 History Furosemide [Lasix] 40 mg PO DAILY@0800 04/05/21/05/22 History Losartan Potassium [Cozaar] 25 mg PO DAILY@79904/05/21 12/25/21 History Pantoprazole [Protonix] 40 mg PO DAILY@79904/05/21 12/25/21 History Potassium Chloride [K-Tab ER] 10 meq PO DAILY@79904/05/21 12/25/21 History levETIRAcetam [Keppra] 1,000 mg PO BID@799,199904/05/21 12/25/21 History Amiodarone [Cordarone] 100 mg PO DAILY@79912/25/21 12/25/21 History Aspirin EC [Ecotrin Low Dose] 81 mg PO HS@199912/25/21 12/25/21 History Atorvastatin Calcium [Lipitor] 40 mg PO HS@199912/25/21 12/25/21 History Clonazepam 0.5mg Odt Tab 0.5 mg PO DAILY PRN 12/25/21 12/25/21 History Cyanocobalamin (Vitamin B-12) 1,000 mcg PO DAILY@1400 12/25/21 12/25/21 History [Vitamin B-12] Metoprolol Succinate (ER) [Toprol 50 mg PO DAILY@79912/25/21 12/25/21 History Xl] Spironolactone 25 mg PO DAILY@79912/25/21 12/25/21 History levETIRAcetam [Keppra] 500 mg PO BID@799,199912/25/21 12/25/21 History Allergies Allergy/AdvReac Type Severity Reaction Status Date / Time No Known Allergies Allergy Verified 12/25/21 12:48 Physical Exam Vitals: Vital Signs Temp Pulse Pulse Pulse Pulse Resp BP 12/25/21 12:19 37 L 16 99/49 12/25/21 10:59 98.6 F 60 41 L 56 L 16 12/25/21 09:51 98.1 F 51 L 16 86/51 BP BP BP Pulse Ox 12/25/21 12:19 97 12/25/21 10:59 102/65 93/75 86/48 96 12/25/21 09:51 99 Intake and Output 12/24/21 12/25/21 12/25/21 22:59 06:59 14:59 Other: Weight 95.254 kg Results CBC & Chem 7: 12/25/21 10:40 12/25/21 10:40 Labs: Abnormal Lab Results - Last 24 Hours (Table) 12/25/21 12/25/21 Range/Units 10:40 10:40 RBC 3.81 L (4.30-5.90) m/uL MCV 106.4 H (80.0-100.0) fL MCH 35.7 H (25.0-35.0) pg Plt Count 95 L (150-450) k/uL APTT 20.6 L (22.0-30.0) sec
[2021-12-25] MEDS: CYANOCOBALAMIN 500 MCG TAB PO SCH (15:12)
[2021-12-25] MEDS: DIVALPROEX 500 MG TABLET.DR PO SCH ×2 (15:13→20:08)
[2021-12-25] MEDS: levETIRAcetam 500 MG TAB PO SCH ×2 (20:08)
[2021-12-25] MEDS: ASPIRIN 81 MG PO SCH (20:08)
[2021-12-25] MEDS: ATORVASTATIN 40 MG TAB PO SCH (20:08)
[2021-12-25] MEDS ORDERED: SODIUM CHLORIDE 0.9% 500 ML 500 ML IV ONE ×2 (23:33→23:34)
[2021-12-26] MEDS ORDERED: SODIUM CHLORIDE 0.9% 500 ML 500 ML IV ONE (00:23)
[2021-12-26] MEDS ORDERED: SPIRONOLACTONE 25 MG TAB PO SCH (08:00)
[2021-12-26] MEDS ORDERED: LOSARTAN 25 MG TAB PO SCH (08:00)
[2021-12-26] MEDS: PANTOPRAZOLE 40 MG TABLET PO SCH (08:50)
[2021-12-26] MEDS: AMIODARONE 100 MG TAB PO SCH (08:50)
[2021-12-26] MEDS: FUROSEMIDE 40 MG TAB PO SCH (08:50)
[2021-12-26] MEDS: POTASSIUM CHLORIDE ER 10 MEQ TAB.ER.PRT PO SCH (08:50)
[2021-12-26] MEDS: levETIRAcetam 500 MG TAB PO SCH ×4 (08:50→19:51)
[2021-12-26] MEDS: DIVALPROEX 500 MG TABLET.DR PO SCH ×3 (08:50→19:51)
[2021-12-26 15:45] LABS: Vitamin B12 >2000.0 pg/mL (200.0-944.0)
[2021-12-26] MEDS: SODIUM CHLORIDE 0.9% 1,000 ML IV SCH ×2 (19:38→19:39)
[2021-12-26] MEDS: CYANOCOBALAMIN 500 MCG TAB PO SCH (19:39)
[2021-12-26] MEDS: ATORVASTATIN 40 MG TAB PO SCH (19:51)
[2021-12-26] MEDS: ASPIRIN 81 MG PO SCH (19:51)
[2021-12-26 23:48] VITALS: RESP 18
[2021-12-27] MEDS: SODIUM CHLORIDE 0.9% 1,000 ML IV SCH (01:48)
[2021-12-27] MEDS: DIVALPROEX 500 MG TABLET.DR PO SCH (08:04)
[2021-12-27] MEDS: PANTOPRAZOLE 40 MG TABLET PO SCH (08:04)
[2021-12-27] MEDS: levETIRAcetam 500 MG TAB PO SCH ×2 (08:04→08:05)
[2021-12-27] MEDS: AMIODARONE 100 MG TAB PO SCH (08:04)
[2021-12-27] MEDS: FUROSEMIDE 40 MG TAB PO SCH (08:04)
[2021-12-27] MEDS: POTASSIUM CHLORIDE ER 10 MEQ TAB.ER.PRT PO SCH (08:04)
--- NOTE | 2021-12-27 09:21 | P.CRDCN ---
History of Present Illness Consult date: 12/26/21 History of present illness: HISTORY OF PRESENT ILLNESS: This is a 71-year-old male with a past medical history significant for CVA with hemorrhagic conversion in 2017, seizures, hyperlipidemia, hypertension, atrial flutter with previous ablation, paroxysmal atrial fibrillation with previous watchman device in 2020, and nonischemic cardiomyopathy with an ejection fraction of 30-35%. Patient follows in the office with Dr. Conley. We have been asked to see the patient in consultation for bradycardia. Patient examined at the bedside. Patient presented to the hospital with a chief complaint of frequent falls and weakness. It is noted in Dr. Conley's previous office visit in November that the patient has been worked up for possible radiculopathy and neuropathy by a neurologist on an outpatient basis. The patient reports he has been having increased falls over the past week. He denies any dizziness or lightheadedness. He denies losing consciousness. He denies chest pain or pressure. She denies shortness of breath. Patient was found to be hypotensive when he presented to the emergency room. He was also noted to be bradycardic with a heart rate in the 30s and 40s. It is noted that the patient's heart rate was mildly bradycardic last month when he saw Dr. Conley in the office with a heart rate in the 50s. * EKG reveals sinus bradycardia * Chest xray trace bilateral pleural effusions without focal consolidation. COPD changes. * Laboratory data: WBC 6.4. Hemoglobin 13.6. Platelet count 95. Sodium 137. Potassium 4.6. BUN 15. Creatinine 1.14. Troponin 0.012. * Current home cardiac medications include amiodarone 100 mg daily, aspirin 81 mg daily, Lipitor 40 mg daily, Lasix 40 mg daily, losartan 25 mg daily, metop rolol succinate 50 mg daily, and spironolactone 25 mg daily * Most recent echocardiogram obtained in February 2021 revealed ejection fraction 30-35% with mild tricuspid regurgitation * Cardiac catheterization history: March 2021 revealing normal coronary arteries. Low normal left-sided filling pressures. REVIEW OF SYSTEMS: At the time of my exam: CONSTITUTIONAL: Denies fever or chills. HEENT: Denies blurred vision, vision changes, or eye pain. Denies hemoptysis CARDIOVASCULAR: Denies chest pain. Denies orthopnea. Denies PND. Denies palpitations RESPIRATORY: Denies shortness of breath. GASTROINTESTINAL: Denies abdominal pain. Denies nausea or vomiting. HEMATOLOGIC: Denies bleeding disorders. GENITOURINARY: Denies any blood in urine. SKIN: Denies pruitis. Denies rash. PHYSICAL EXAM: VITAL SIGNS: Reviewed. GENERAL: Well-developed in no acute distress. HEENT: Head is normocephalic. Pupils are equal, round. Sclerae anicteric. Mucous membranes of the mouth are moist. Neck supple. No JVD or thyromegaly LUNGS: Respirations even and unlabored. Lungs essentially clear to auscultation bilaterally. HEART: Regular rate and rhythm. S1 and S2 heard. ABDOMEN: Soft. Nondistended. Nontender. EXTREMITIES: Normal range of motion. No clubbing or cyanosis. Peripheral pulses intact. No lower extremity edema NEUROLOGIC: Awake and alert. Oriented x 3. ASSESSMENT: Weakness Recent falls Bradycardia Orthostatic hypotension CVA with hemorrhagic conversion in 2016 Hx of seizures hyperlipidemia hypertension hx of atrial flutter with previous ablation paroxysmal atrial fibrillation with previous watchman device in 2020 nonischemic cardiomyopathy with an ejection fraction of 30-35% PLAN: Hold AV nallely blocking agents Hold antihypertensive medications Continue telemetry monitoring Further recommendations pending patient course Nurse practitioner note has been reviewed by physician. Signing provider agrees with the documented findings, assessment, and plan of care. Past Medical History Past Medical History: Atrial Fibrillation, CVA/TIA, Deep Vein Thrombosis (DVT), GERD/Reflux, Pulmonary Embolus (PE), Seizure Disorder Additional Past Medical History / Comment(s): CVA 2017-has difficulty with speech at times,DVT rt leg and Rt PE 2016,uses a cane,last seizure Nov 2019 History of Any Multi-Drug Resistant Organisms: None Reported Past Surgical History: Back Surgery, Joint Replacement Additional Past Surgical History / Comment(s): juan knee replacements Past Anesthesia/Blood Transfusion Reactions: No Reported Reaction Past Psychological History: No Psychological Hx Reported Smoking Status: Former smoker Past Alcohol Use History: None Reported Past Drug Use History: None Reported - Past Family History Mother Family Medical History: Myocardial Infarction ([place]) Medications and Allergies Home Medications Medication Instructions Recorded Confirmed Type Divalproex Sodium [Depakote] 500 mg PO TID@0800,1400,2000 04/05/21 12/25/21 History Furosemide [Lasix] 40 mg PO DAILY@0800 12/15/21 09/05/22 History Losartan Potassium [Cozaar] 25 mg PO DAILY@79904/05/21 12/25/21 History Pantoprazole [Protonix] 40 mg PO DAILY@79904/05/21 12/25/21 History Potassium Chloride [K-Tab ER] 10 meq PO DAILY@79904/05/21 12/25/21 History levETIRAcetam [Keppra] 1,000 mg PO BID@799,199904/05/21 12/25/21 History Amiodarone [Cordarone] 100 mg PO DAILY@79912/25/21 12/25/21 History Aspirin EC [Ecotrin Low Dose] 81 mg PO HS@199912/25/21 12/25/21 History Atorvastatin Calcium [Lipitor] 40 mg PO HS@199912/25/21 12/25/21 History Clonazepam 0.5mg Odt Tab 0.5 mg PO DAILY PRN 12/25/21 12/25/21 History Cyanocobalamin (Vitamin B-12) 1,000 mcg PO DAILY@1400 12/25/21 12/25/21 History [Vitamin B-12] Metoprolol Succinate (ER) [Toprol 50 mg PO DAILY@79912/25/21 12/25/21 History Xl] Spironolactone 25 mg PO DAILY@79912/25/21 12/25/21 History levETIRAcetam [Keppra] 500 mg PO BID@799,199912/25/21 12/25/21 History Allergies Allergy/AdvReac Type Severity Reaction Status Date / Time No Known Allergies Allergy Verified 12/25/21 12:48 Physical Exam Vitals: Vital Signs Temp Pulse Pulse Pulse Pulse Resp BP 12/26/21 08:00 97.7 F 43 L 12/26/21 03:32 97.9 F 43 L 16 12/26/21 01:35 16 12/26/21 00:51 45 L 12/26/21 00:22 43 L 12/25/21 23:31 42 L 16 12/25/21 19:38 98 F 45 L 16 12/25/21 15:19 40 L 16 96/82 12/25/21 15:15 45 L 16 96/82 12/25/21 14:24 35 L 16 95/58 12/25/21 12:19 37 L 16 99/49 12/25/21 10:59 98.6 F 60 41 L 56 L 16 BP BP BP Pulse Ox 12/26/21 08:00 95/56 99 12/26/21 03:32 102/53 98 12/26/21 01:35 12/26/21 00:51 106/61 12/26/21 00:22 93/51 12/25/21 23:31 90/52 98 12/25/21 19:38 111/64 99 12/25/21 15:19 96 12/25/21 15:15 88 L 12/25/21 14:24 96 12/25/21 12:19 97 12/25/21 10:59 102/65 93/75 86/48 96 Intake and Output 12/25/21 12/26/21 12/26/21 22:59 06:59 14:59 Intake Total 1200 Output Total 300 1000 550 Balance -300 200 -550 Intake: Intake, IV Titration 1000 Amount Sodium Chloride 0.9% 500 500 ml 500 ml @ 999 mls/hr IV .Q31M ONE Rx#:[id number] Sodium Chloride 0.9% 500 500 ml 500 ml @ 999 mls/hr IV .Q31M ONE Rx#:[id number] Oral 200 Output: Urine 300 1000 550 Other: Voiding Method Urinal Urinal Urinal # Voids 2 Results 12/25/21 10:40 12/25/21 10:40 Cardiac Enzymes 12/25/21 12/25/21 Range/Units 10:40 10:40 AST 32 (17-59) U/L Troponin I <0.012 (0.000-0.034) ng/mL Coagulation 12/25/21 Range/Units 10:40 PT 11.1 (9.0-12.0) sec APTT 20.6 L (22.0-30.0) sec CBC 12/25/21 Range/Units 10:40 WBC 6.4 (3.8-10.6) k/uL RBC 3.81 L (4.30-5.90) m/uL Hgb 13.6 (13.0-17.5) gm/dL Hct 40.5 (39.0-53.0) % Plt Count 95 L (150-450) k/uL Comprehensive Metabolic Panel 12/25/21 Range/Units 10:40 Sodium 137 (137-145) mmol/L Potassium 4.6 (3.5-5.1) mmol/L Chloride 103 (98-107) mmol/L Carbon Dioxide 29 (22-30) mmol/L BUN 15 (9-20) mg/dL Creatinine 1.14 (0.66-1.25) mg/dL Glucose 82 (74-99) mg/dL Calcium 9.0 (8.4-10.2) mg/dL AST 32 (17-59) U/L ALT 27 (4-49) U/L Alkaline Phosphatase 54 (38-126) U/L Total Protein 6.4 (6.3-8.2) g/dL Albumin 3.5 (3.5-5.0) g/dL Current Medications Generic Name Dose Route Start Last Admin Trade Name Freq PRN Reason Stop Dose Admin Amiodarone HCl 100 mg 12/26/21 08:00 12/26/21 08:50 Amiodarone 100 Mg Tab PO 100 mg DAILY@0800 GISSELLE Administration Aspirin 81 mg 12/25/21 20:00 12/25/21 20:08 Aspirin 81 Mg PO 81 mg HS@1999 GISSELLE Administration Atorvastatin Calcium 40 mg 12/25/21 20:00 12/25/21 20:08 Atorvastatin 40 Mg Tab PO 40 mg HS@1999 GISSELLE Administration Clonazepam 0.5 mg 12/25/21 13:21 Clonazepam 0.5 Mg Tab PO DAILY PRN Seizures Cyanocobalamin 1,000 mcg 12/25/21 14:00 12/25/21 15:12 Cyanocobalamin 500 Mcg Tab PO 1,000 mcg DAILY@1400 GISSELLE Administration Divalproex Sodium 500 mg 12/25/21 14:00 12/26/21 08:50 Divalproex 500 Mg Tablet.Dr PO 500 mg TID@0800,1399,1999 GISSELLE Administration Furosemide 40 mg 12/26/21 08:00 12/26/21 08:50 Furosemide 40 Mg Tab PO 40 mg DAILY@0800 GISSELLE Administration Sodium Chloride 1,000 mls @ 75 mls/hr 12/25/21 12:30 12/25/21 12:28 Saline 0.9% IV 130 mls/hr .[id number] GISSELLE Administration Levetiracetam 1,000 mg 12/25/21 20:00 12/26/21 08:50 Levetiracetam 500 Mg Tab PO 1,000 mg BID@ GISSELLE Administration Levetiracetam 500 mg 12/25/21 20:00 12/26/21 09:05 Levetiracetam 500 Mg Tab PO 500 mg BID@ GISSELLE Administration Naloxone HCl 0.2 mg 12/25/21 12:18 Naloxone 0.4 Mg/Ml 1 Ml Vial IV Q2M PRN Opioid Reversal Pantoprazole Sodium 40 mg 12/26/21 08:00 12/26/21 08:50 Pantoprazole 40 Mg Tablet PO 40 mg DAILY@0800 GISSELLE Administration Potassium Chloride 10 meq 12/26/21 08:00 12/26/21 08:50 Potassium Chloride Er 10 Meq Tab.Er.Prt PO 10 meq DAILY@0800 GISSELLE Administration Intake and Output 12/25/21 12/26/21 12/26/21 22:59 06:59 14:59 Intake Total 1200 Output Total 300 1000 550 Balance -300 200 -550 Intake: Intake, IV Titration 1000 Amount Sodium Chloride 0.9% 500 500 ml 500 ml @ 999 mls/hr IV .Q31M ONE Rx#:[id number] Sodium Chloride 0.9% 500 500 ml 500 ml @ 999 mls/hr IV .Q31M ONE Rx#:[id number] Oral 200 Output: Urine 300 1000 550 Other: Voiding Method Urinal Urinal Urinal # Voids 2 12/25/21 10:40 12/25/21 10:40
--- NOTE | 2021-12-27 09:52 | P.PN ---
Subjective Progress Note Date: 12/27/21 HISTORY OF PRESENT ILLNESS: This is a 71-year-old male with a past medical history significant for CVA with hemorrhagic conversion in 2017, seizures, hyperlipidemia, hypertension, atrial flutter with previous ablation, paroxysmal atrial fibrillation with previous watchman device in 2020, and nonischemic cardiomyopathy with an ejection fraction of 30-35%. Patient follows in the office with Dr. Conley. We have been asked to see the patient in consultation for bradycardia. Patient examined at the bedside. Patient presented to the hospital with a chief complaint of frequent falls and weakness. It is noted in Dr. Conley's previous office visit in November that the patient has been worked up for possible radiculopathy and neuropathy by a neurologist on an outpatient basis. The patient reports he has been having increased falls over the past week. He denies any dizziness or lightheadedness. He denies losing consciousness. He denies chest pain or pressure. She denies shortness of breath. Patient was found to be hypotensive when he presented to the emergency room. He was also noted to be bradycardic with a heart rate in the 30s and 40s. It is noted that the patient's heart rate was mildly bradycardic last month when he saw Dr. Conley in the office with a heart rate in the 50s. * EKG reveals sinus bradycardia * Chest xray trace bilateral pleural effusions without focal consolidation. COPD changes. * Laboratory data: WBC 6.4. Hemoglobin 13.6. Platelet count 95. Sodium 137. Potassium 4.6. BUN 15. Creatinine 1.14. Troponin 0.012. * Current home cardiac medications include amiodarone 100 mg daily, aspirin 81 mg daily, Lipitor 40 mg daily, Lasix 40 mg daily, losartan 25 mg daily, metoprolol succinate 50 mg daily, and spironolactone 25 mg daily * Most recent echocardiogram obtained in February 2021 revealed ejection fraction 30-35% with mild tricuspid regurgitation * Cardiac catheterization history: March 2021 revealing normal coronary arteries. Low normal left-sided filling pressures. 12/27/2021 Patient examined this morning at the bedside. Patient denies chest pain or pressure. Denies SOB. Denies dizziness or lightheadedness. Telemetry reveals sinus mechanism with a heart rate in the 60s. His metoprolol remains on hold. Blood pressure improved this morning with a SBP of 116/58. PHYSICAL EXAM: VITAL SIGNS: Reviewed. GENERAL: Well-developed in no acute distress. HEENT: Head is normocephalic. Pupils are equal, round. Sclerae anicteric. Mucous membranes of the mouth are moist. Neck supple. No JVD or thyromegaly LUNGS: Respirations even and unlabored. Lungs essentially clear to auscultation bilaterally. HEART: Regular rate and rhythm. S1 and S2 heard. ABDOMEN: Soft. Nondistended. Nontender. EXTREMITIES: Normal range of motion. No clubbing or cyanosis. Peripheral pulses intact. No lower extremity edema NEUROLOGIC: Awake and alert. Oriented x 3. ASSESSMENT: Weakness Recent falls Bradycardia Orthostatic hypotension CVA with hemorrhagic conversion in 2016 Hx of seizures hyperlipidemia hypertension hx of atrial flutter with previous ablation paroxysmal atrial fibrillation with previous watchman device in 2020 nonischemic cardiomyopathy with an ejection fraction of 30-35% PLAN: Continue to hold metoprolol secondary to bradycardia Continue to hold Losartan and Aldatone secondary to orthostatic hypotension Continue telemetry monitoring Further recommendations pending patient course Nurse practitioner note has been reviewed by physician. Signing provider agrees with the documented findings, assessment, and plan of care. Objective - Vital Signs Vital signs: Vital Signs Temp 97.8 F 12/27/21 08:07 Pulse 55 L 12/27/21 08:07 Resp 18 12/27/21 08:07 BP 116/58 12/27/21 08:07 Pulse Ox 94 L 12/27/21 08:07 FiO2 Intake & Output 12/26/21 12/27/21 12/27/21 18:59 06:59 18:59 Intake Total 120 Output Total 1325 800 150 Balance -1325 -800 -30 Intake: Oral 120 Output: Urine 1325 800 150 Other: Voiding Method Urinal Urinal Urinal # Voids 2 - Labs CBC & Chem 7: 12/25/21 10:40 12/25/21 10:40 Labs: Abnormal Lab Results - Last 24 Hours (Table) 12/26/21 Range/Units 08:46 Vitamin B12 >2000.0 H (200.0-944.0) pg/mL
--- NOTE | 2021-12-27 10:04 | CA ---
Transthoracic Echo Report Name: Chris Henley Age: 71 Gender: M : 1950 Exam Date: 12/26/2021 10:56 Exam Location: [facility] Ht (in): 72 Wt (lb): 210 Ordering Physician: Angeles Hawthorne Attending/Referring Phys: [id number], Marine Booth Supervisor Sachi Oscar, RODDY Procedure CPT: Indications: LV function Cardiac Hx: Technical Quality: Good Contrast 1: Total Dose (mL): Contrast 2: Total Dose (mL): MEASUREMENTS (Male / Female) Normal Values 2D ECHO LV Diastolic Diameter PLAX 5.7 cm 4.2 - 5.9 / 3.9 - 5.3 cm LV Systolic Diameter PLAX 4.4 cm IVS Diastolic Thickness 1.1 cm 0.6 - 1.0 / 0.6 - 0.9 cm LVPW Diastolic Thickness 1.0 cm 0.6 - 1.0 / 0.6 - 0.9 cm LV Relative Wall Thickness 0.4 RV Internal Dim ED PLAX 3.1 cm LA Systolic Diameter LX 3.5 cm 3.0 - 4.0 / 2.7 - 3.8 cm LA Volume 53.6 cm??? 18 - 58 / 22 - 52 cm??? M-MODE Aortic Root Diameter MM 4.1 cm MV E Point Septal Separation 0.2 cm AV Cusp Separation MM 2.0 cm DOPPLER AV Peak Velocity 150.8 cm/s AV Peak Gradient 9.1 mmHg MV Area PHT 4.5 cm??? Mitral E Point Velocity 83.3 cm/s Mitral A Point Velocity 64.5 cm/s Mitral E to A Ratio 1.3 MV Deceleration Time 169.8 ms MV E' Velocity 9.7 cm/s Mitral E to MV E' Ratio 8.6 TR Peak Velocity 237.3 cm/s TR Peak Gradient 22.5 mmHg Right Ventricular Systolic Press 27.1 mmHg PV Peak Velocity 215.0 cm/s PV Peak Gradient 18.5 mmHg FINDINGS Left Ventricle Left ventricular ejection fraction is estimated at 55%. Left ventricular cavity size normal. Left ventricular wall thickness normal. Right Ventricle Normal right ventricular size. Right ventricular systolic pressure within normal limits. Right Atrium Normal right atrial size. Left Atrium Normal left atrial size. No evidence for an atrial septal defect. Mitral Valve Structurally normal mitral valve. No mitral stenosis, regurgitation or prolapse. Aortic Valve Trileaflet aortic valve. No aortic valve stenosis or regurgitation. Tricuspid Valve Mild tricuspid regurgitation. Pulmonic Valve Structurally normal pulmonic valve. Pericardium Normal pericardium. No pericardial effusion. Aorta Moderate aortic dilatation at the level of the sinuses of valsalva 41 mm CONCLUSIONS LV systolic function is well-preserved. There is no significant abnormality on the Doppler exam no pericardial effusion. No significant pulmonary hypertension Previewed by: Dr. Barry Medina MD (Electronically Signed) Final Date: 27 December 2021 10:03
[2021-12-27 11:29] VITALS: BP 103/60; PULSE 66; TEMP 98
--- NOTE | 2021-12-27 11:41 | P.DS ---
Providers Date of admission: 12/25/21 12:18 Expected date of discharge: 12/27/21 Attending physician: Samia Esparza, DO Consults: 12/25/21 12:18 Consult Physician Urgent Consulting Provider: Kenneth Conley Consult Reason/Comments: sinus bradycardia Do you want consulting provider notified?: Yes Primary care physician: [facility] Course: 71-year-old male with PMH of seizure disorder, atrial fibrillation, history of CVA with speech impediment, hypertension, GERD presents the ED for generalized weakness and falls for the past week. He feels like his brain does not move with his feet. He denies any loss of consciousness or head trauma. He denies any lightheadedness. His reports that he has been sleeping 18-20 hours a day over the last couple of days. He denies any headache, lower extremity edema, nausea or vomiting, fever or chills, cough, chest pain, shortness of breath, palpitations, changes in urination or bowel habits. No changes in appetite or weight. He denies any numbness/weakness/tingling of the extremities. Of note, patient recently moved from [place] and has established care with filling technician Dr. Conley. He currently has a loop recorder and watchman device. In the ED, his heart rate was noted to be as low as 37 bpm. His BP was as low as 80s over 40s. CBC showed MCV of 106.4 with platelet count of 95. INR was 1.0. CMP was unremarkable. Troponin was less than 0.012. Chest x-ray show trace bilateral pleural effusion with COPD changes. CT head and C-spine showed no acute intracranial process, remote left MCA distribution infarct, moderate multilevel DJD. Patient is admitted for further management of his symptoms. He tested positive for orthostatic vital signs on admission. Therefore spironolactone, losartan were held. EKG was showing sinus bradycardia, metoprolol was held. Patient was seen by cardiology, was cleared today for discharge. Heart rate was ranging between 40-50 during the hospitalization. He was seen by physical therapy as well. He is currently walking around the room without difficulties. Heart rate has improved into the 60s. Time for discharge 35 minutes. Patient Condition at Discharge: Serious Plan - Discharge Summary New Discharge Prescriptions: Continue Divalproex Sodium [Depakote] 500 mg PO TID@0800,1400,1999 Pantoprazole [Protonix] 40 mg PO DAILY@0800 Atorvastatin Calcium [Lipitor] 40 mg PO HS@1999 Aspirin EC [Ecotrin Low Dose] 81 mg PO HS@1999 levETIRAcetam [Keppra] 1,000 mg PO BID@08,1999 Potassium Chloride [K-Tab ER] 10 meq PO DAILY@0800 Furosemide [Lasix] 40 mg PO DAILY@0800 Amiodarone [Cordarone] 100 mg PO DAILY@0800 Cyanocobalamin (Vitamin B-12) [Vitamin B-12] 1,000 mcg PO DAILY@1400 levETIRAcetam [Keppra] 500 mg PO BID@08,1999 Clonazepam 0.5mg Odt Tab 0.5 mg PO DAILY PRN PRN Reason: Seizures Discontinued Metoprolol Succinate (ER) [Toprol Xl] 50 mg PO DAILY@0800 Losartan Potassium [Cozaar] 25 mg PO DAILY@0800 Spironolactone 25 mg PO DAILY@0800 Discharge Medication List Divalproex Sodium [Depakote] 500 mg PO TID@0800,1400,199904/05/21 [History] Furosemide [Lasix] 40 mg PO DAILY@0800 04/05/21 [History] Pantoprazole [Protonix] 40 mg PO DAILY@0800 04/05/21 [History] Potassium Chloride [K-Tab ER] 10 meq PO DAILY@0800 04/05/21 [History] levETIRAcetam [Keppra] 1,000 mg PO BID@08,199904/05/21 [History] Amiodarone [Cordarone] 100 mg PO DAILY@0800 12/25/21 [History] Aspirin EC [Ecotrin Low Dose] 81 mg PO HS@199912/25/21 [History] Atorvastatin Calcium [Lipitor] 40 mg PO HS@199912/25/21 [History] Clonazepam 0.5mg Odt Tab 0.5 mg PO DAILY PRN 12/25/21 [History] Cyanocobalamin (Vitamin B-12) [Vitamin B-12] 1,000 mcg PO DAILY@1400 12/25/21 [History] levETIRAcetam [Keppra] 500 mg PO BID@0800,199912/25/21 [History] Follow up Appointment(s)/Referral(s): Azam Charlton [Primary Care Provider] - 1-2 days
== END 2021-12-27 12:09 | disposition home or self-care (01) | DRG 309 ==
LOC: EC 09:47 → 3SCARD 12:18
PROVIDERS: ADMIT Internal Medicine; ATTEND Internal Medicine
DX: R00.1 Bradycardia, unspecified (principal); I50.22 Chronic systolic (congestive) heart failure; I69.328 Other speech and language deficits following cerebral infarction; D69.6 Thrombocytopenia, unspecified; D75.89 Other specified diseases of blood and blood-forming organs; J44.9 Chronic obstructive pulmonary disease, unspecified; E78.5 Hyperlipidemia, unspecified; G40.909 Epilepsy, unspecified, not intractable, without status epilepticus; I11.0 Hypertensive heart disease with heart failure; M54.10 Radiculopathy, site unspecified; R53.1 Weakness; I42.8 Other cardiomyopathies; I48.0 Paroxysmal atrial fibrillation; K21.9 Gastro-esophageal reflux disease without esophagitis; I95.1 Orthostatic hypotension; R29.6 Repeated falls; Z79.82 Long term (current) use of aspirin; Z79.899 Other long term (current) drug therapy; Z86.711 Personal history of pulmonary embolism; Z87.891 Personal history of nicotine dependence; Z95.818 Presence of other cardiac implants and grafts; Z96.653 Presence of artificial knee joint, bilateral
CPT/HCPCS: 36415; 70450; 71046; 72125; 80053; 82607; 82746; 83605; 83735; 84443; 84484; 85025; 85610; 85730; 93005; 93306; 96361; 96374; 99285

== ENCOUNTER → 2022-01-12 | Outpatient (CLI) | payer MEDICARE ==
--- NOTE | 2022-01-12 19:51 | MR ---
EXAMINATION TYPE: MR brain/cspine wo/w DATE OF EXAM: 01/12/2022 7:41 PM COMPARISON: NONE HISTORY: History of brain aneurysm and stroke, dizziness, falls, trouble walking CONTRAST: Patient received 9 mL intravenous Gadavist gadolinium contrast. Multiplanar and multispin-echo imaging of the brain was performed . Pre and post contrast enhanced i mages are obtained. The ventricles, basal cisterns and sulci overlying the cerebral convexities are moderately enlarged. There is evidence of mild to moderate periventricular white matter ischemic demyelination. Remote deep white matter insults are also noted. Remote insult left MCA territory with encephalomala jeffrey and surrounding gliosis. No acute edema is seen on diffusion weighted imaging. There is no evidence for midline shift or mass effect. Acute intracranial hemorrhage or extra-axial collection is not evident. No enhancing lesions are seen. The paranasal sinuses and mastoid air cells are well-aerated. IMPRESSION: 1. Age-related atrophic and chronic small vessel ischemic change. No acute intracranial process at this time. 2. No enhancing lesions are seen. 3. Remote insult left MCA territory. EXAMINATION TYPE: MR brain/cspine wo/w DATE OF EXAM: 01/12/2022 7:41 PM COMPARISON: NONE HISTORY: History of brain aneurysm and stroke, dizziness, falls, trouble walking CONTRAST: The patient was injected with 9 mL intravenous Gadavist gadolinium contrast. Multiplanar MultiSpin echo imaging of the cervical spine was performed. C2-C3: No evidence for degenerative disc disease. No disc bulge/herniation or protrusion. No Canal stenosis. Foramina are patent bilaterally. C3-C4: Mild disc desiccation. Posterior disc bulge. Mild effacement ventral thecal sac. No evidence f or disc herniation or central stenosis. Foramina are patent bilaterally. C4-C5: Mild disc desiccation. Posterior disc bulge. Mild effacement ventral thecal sac. No evidence f or disc herniation or central stenosis. Foramina are patent bilaterally. C5-C6: Severe disc desiccation with posterior disc bulge. No evidence of herniation protrusion or bj tral stenosis. Degenerative change cervical apophyseal joints with foraminal encroachment right great er than left. Degenerative endplate marrow change. C6-C7:Severe disc desiccation with posterior disc bulge. No evidence of herniation protrusion or cent ral stenosis. Degenerative change cervical apophyseal joints with foraminal encroachment right greate r than left. Degenerative endplate marrow change. C7-T1: No evidence for degenerative disc disease. No disc bulge/herniation or protrusion. No Canal stenosis. Foramina are patent bilaterally. No cervical spine fracture. There is normal alignment. Cervical spinal cord is of normal signal. C raniovertebral junction relationships are within normal limits. No pathologic enhancement. IMPRESSION: 1. Multilevel degenerative disc disease with mild disc bulging. No herniation or central stenosis. Th ere are degrees of bilateral neural foraminal encroachment.
== END | disposition home or self-care (01) ==
LOC: RADMRIMAIN 17:40
PROVIDERS: ATTEND Orthopaedic Surgery
DX: G31.9 Degenerative disease of nervous system, unspecified (principal); I67.82 Cerebral ischemia; M50.022 Cervical disc disorder at C5-C6 level with myelopathy
CPT/HCPCS: 70553; 72156; A9585

== ENCOUNTER 2022-01-18 10:52 | Inpatient (IN) | payer MEDICARE ==
--- NOTE | 2022-01-18 11:09 | ED ---
General Adult HPI - General Stated complaint: syncope Time Seen by Provider: 01/18/22 10:53 Source: patient, RN notes reviewed Mode of arrival: EMS Limitations: no limitations - History of Present Illness Initial comments: Patient is a pleasant 71-year-old male presenting to the emergency department with syncopal episode. Patient states he has had 3 up from the last 4 days, la st was last night. Patient states he does have frequent falls. Patient denies any significant injury. Patient does have history of chronic problems from previous stroke and states his speech pattern is unchanged from chronic. No new extremity weakness. No chest pain or dyspnea. - Related Data Home Medications Medication Instructions Recorded Confirmed Divalproex Sodium [Depakote] 500 mg PO TID@0800,1399,199904/05/21 01/18/22 Furosemide [Lasix] 40 mg PO DAILY@0800 04/05/21 01/18/22 Pantoprazole [Protonix] 40 mg PO DAILY@0800 04/05/21 01/18/22 Potassium Chloride [K-Tab ER] 10 meq PO DAILY@0800 04/05/21 01/18/22 levETIRAcetam [Keppra] 1,000 mg PO BID@0800,199904/05/21 01/18/22 Aspirin EC [Ecotrin Low Dose] 81 mg PO HS@199912/25/21 01/18/22 Atorvastatin Calcium [Lipitor] 40 mg PO HS@199912/25/21 01/18/22 Clonazepam 0.5mg Odt Tab 0.5 mg PO DAILY PRN 12/25/21 01/18/22 Cyanocobalamin (Vitamin B-12) 1,000 mcg PO DAILY@1400 12/25/21 01/18/22 [Vitamin B-12] levETIRAcetam [Keppra] 500 mg PO BID@0800,199912/25/21 01/18/22 Allergies Allergy/AdvReac Type Severity Reaction Status Date / Time No Known Allergies Allergy Verified 01/18/22 12:51 Review of Systems ROS Statement: Those systems with pertinent positive or pertinent negative responses have been documented in the HPI. ROS Other: All systems not noted in ROS Statement are negative. Constitutional: Denies: fever Eyes: Denies: eye pain ENT: Denies: ear pain Respiratory: Denies: cough Cardiovascular: Denies: chest pain Endocrine: Denies: fatigue Gastrointestinal: Denies: abdominal pain Genitourinary: Denies: dysuria Musculoskeletal: Denies: back pain Skin: Denies: rash Neurological: Denies: headache, weakness Past Medical History Past Medical History: Atrial Fibrillation, CVA/TIA, Deep Vein Thrombosis (DVT), GERD/Reflux, Pulmonary Embolus (PE), Seizure Disorder Additional Past Medical History / Comment(s): CVA 2017-has difficulty with speech at times,DVT rt leg and Rt PE 2016,uses a cane,last seizure Nov 2019 History of Any Multi-Drug Resistant Organisms: None Reported Past Surgical History: Back Surgery, Joint Replacement Additional Past Surgical History / Comment(s): juan knee replacements Past Anesthesia/Blood Transfusion Reactions: No Reported Reaction Past Psychological History: No Psychological Hx Reported Smoking Status: Former smoker Past Alcohol Use History: None Reported Past Drug Use History: None Reported - Past Family History Mother Family Medical History: Myocardial Infarction ([place]) General Exam Limitations: no limitations General appearance: alert, in no apparent distress Head exam: Present: atraumatic Eye exam: Present: normal appearance, PERRL, EOMI ENT exam: Present: normal oropharynx Neck exam: Present: normal inspection Respiratory exam: Present: normal lung sounds bilaterally Cardiovascular Exam: Present: regular rate, normal rhythm GI/Abdominal exam: Present: soft. Absent: tenderness Extremities exam: Present: normal inspection Neurological exam: Present: alert, CN II-XII intact. Absent: motor sensory deficit Expanded Neurological exam: Present: protecting the airway, other (Patient does have m oderately garbled speech that is consistent) Patient oriented to: Present: person, place. Absent: time Sensory exam: Upper Extremity Light Touch: Normal, Lower Extremity Light Touch: Normal Motor strength exam: RUE: 5, LUE: 5, RLE: 5, LLE: 5 Eye Response: (4) open spontaneously Motor Response: (6) obeys commands Verbal Response: (4) confused conversation Psychiatric exam: Present: normal affect, normal mood Skin exam: Present: normal color Course Vital Signs 01/18/22 01/18/22 11:26 12:49 Temperature 97.5 F L Pulse Rate 67 Pulse Rate [ 70 Right Pulse Oximetery] Respiratory 18 18 Rate Blood Pressure 97/47 Blood Pressure 97/30 [Right Arm Sitting] Blood Pressure 99/44 [Right Arm Supine] O2 Sat by Pulse 96 98 Oximetry EKG Findings - EKG Comments: EKG Findings:: Supraventricular rhythm with his knees. Rate 75. QRS 72. QT 276. QTc 05. Normal axis. Normal QRS. No acute ST change. Medical Decision Making - Medical Decision Making Patient reevaluated and updated. Nursing unable to do orthostatics secondary to patient becoming lightheaded and syncopal with some odd movements during attempted standing Case was discussed with Dr. Solorzano, who will admit - Lab Data Result diagrams: 01/18/22 11:25 01/18/22 11:25 Lab Results 01/18/22 01/18/22 01/18/22 Range/Units 11:25 11:25 11:25 WBC 6.3 (3.8-10.6) k/uL RBC 3.33 L (4.30-5.90) m/uL Hgb 11.4 L (13.0-17.5) gm/dL Hct 33.1 L (39.0-53.0) % MCV 99.6 D (80.0-100.0) fL MCH 34.3 (25.0-35.0) pg MCHC 34.5 (31.0-37.0) g/dL RDW 14.1 (11.5-15.5) % Plt Count 121 L (150-450) k/uL MPV 9.1 Neutrophils % 63 % Lymphocytes % 22 % Monocytes % 10 % Eosinophils % 1 % Basophils % 0 % Neutrophils # 4.0 (1.3-7.7) k/uL Lymphocytes # 1.4 (1.0-4.8) k/uL Monocytes # 0.6 (0-1.0) k/uL Eosinophils # 0.1 (0-0.7) k/uL Basophils # 0.0 (0-0.2) k/uL PT 11.2 (9.0-12.0) sec INR 1.0 (<1.2) APTT 23.1 (22.0-30.0) sec Sodium 133 L (137-145) mmol/L Potassium 3.2 L (3.5-5.1) mmol/L Chloride 94 L (98-107) mmol/L Carbon Dioxide 31 H (22-30) mmol/L Anion Gap 8 mmol/L BUN 18 (9-20) mg/dL Creatinine 1.17 (0.66-1.25) mg/dL Est GFR (CKD-EPI)AfAm 72 (>60 ml/min/1.73 sqM) Est GFR (CKD-EPI)NonAf 62 (>60 ml/min/1.73 sqM) Glucose 96 (74-99) mg/dL Calcium 8.9 (8.4-10.2) mg/dL Magnesium 1.8 (1.6-2.3) mg/dL Total Bilirubin 1.4 H (0.2-1.3) mg/dL AST 29 (17-59) U/L ALT 17 (4-49) U/L Alkaline Phosphatase 62 (38-126) U/L Troponin I (0.000-0.034) ng/mL Total Protein 5.2 L (6.3-8.2) g/dL Albumin 2.7 L (3.5-5.0) g/dL 01/18/22 Range/Units 11:25 WBC (3.8-10.6) k/uL RBC (4.30-5.90) m/uL Hgb (13.0-17.5) gm/dL Hct (39.0-53.0) % MCV (80.0-100.0) fL MCH (25.0-35.0) pg MCHC (31.0-37.0) g/dL RDW (11.5-15.5) % Plt Count (150-450) k/uL MPV Neutrophils % % Lymphocytes % % Monocytes % % Eosinophils % % Basophils % % Neutrophils # (1.3-7.7) k/uL Lymphocytes # (1.0-4.8) k/uL Monocytes # (0-1.0) k/uL Eosinophils # (0-0.7) k/uL Basophils # (0-0.2) k/uL PT (9.0-12.0) sec INR (<1.2) APTT (22.0-30.0) sec Sodium (137-145) mmol/L Potassium (3.5-5.1) mmol/L Chloride (98-107) mmol/L Carbon Dioxide (22-30) mmol/L Anion Gap mmol/L BUN (9-20) mg/dL Creatinine (0.66-1.25) mg/dL Est GFR (CKD-EPI)AfAm (>60 ml/min/1.73 sqM) Est GFR (CKD-EPI)NonAf (>60 ml/min/1.73 sqM) Glucose (74-99) mg/dL Calcium (8.4-10.2) mg/dL Magnesium (1.6-2.3) mg/dL Total Bilirubin (0.2-1.3) mg/dL AST (17-59) U/L ALT (4-49) U/L Alkaline Phosphatase (38-126) U/L Troponin I <0.012 (0.000-0.034) ng/mL Total Protein (6.3-8.2) g/dL Albumin (3.5-5.0) g/dL - Radiology Data Radiology results: report reviewed (Computed tomography scan of the brain reveals no acute process), image reviewed (Chest x-ray shows no acute process) Disposition Clinical Impression: Recurrent syncope Disposition: ADMITTED IP TO THIS [facility] Condition: Serious Is patient prescribed a controlled substance at d/c from ED?: No Referrals: None,Stated [REFERRING] - 1-2 days Time of Disposition: 13:13
[2022-01-18 11:41] LABS: Albumin 2.7 g/dL (3.5-5.0); Calcium 8.9 mg/dL (8.4-10.2); Magnesium 1.8 mg/dL (1.6-2.3); Potassium 3.2 mmol/L (3.5-5.1); Total Bilirubin 1.4 mg/dL (0.2-1.3); Total Protein 5.2 g/dL (6.3-8.2)
[2022-01-18 11:42] LABS: Partial Thromboplastin Time 23.1 sec (22.0-30.0); Prothrombin Time 11.2 sec (9.0-12.0)
[2022-01-18 11:47] LABS: Basophils % (A) 0 %; Eosinophils # (A) 0.1 k/uL (0-0.7); Eosinophils % (A) 1 %; HCT 33.1 % (39.0-53.0); HGB 11.4 gm/dL (13.0-17.5); Lymphocytes # (A) 1.4 k/uL (1.0-4.8); Lymphocytes % (A) 22 %; MCH 34.3 pg (25.0-35.0); MCHC 34.5 g/dL (31.0-37.0); Mean Platelet Volume 9.1; Monocytes # (A) 0.6 k/uL (0-1.0); Monocytes % (A) 10 %; Neutrophils % (A) 63 %; Platelet Count 121 k/uL (150-450); RBC 3.33 m/uL (4.30-5.90); RDW 14.1 % (11.5-15.5); WBC 6.3 k/uL (3.8-10.6)
[2022-01-18 11:51] LABS: MCV 99.6 fL (80.0-100.0)
--- NOTE | 2022-01-18 12:05 | CT ---
EXAMINATION TYPE: CT brain wo con DATE OF EXAM: 01/18/2022 COMPARISON: 12/25/2021 HISTORY: frequent falls CT DLP: 1082.4 mGycm Automated exposure control for dose reduction was used. FINDINGS: A moderate generalized degenerative changes. Low-attenuation left frontal parietal region compatible with remote infarct left MCA. Diffuse nonspecific white matter changes most available remote ischemia . No mass effect or midline shift. Calvarium intact. Craniocervical junction maintained. Sella turcic a is normal in appearance. Additional areas of low-attenuation in the white matter are nonspecific bu t most of remote ischemia. Small soft tissue nodule in the posterior subcutaneous tissues measuring 1 cm or less nonspecific but most likely the patient's sebaceous cyst IMPRESSION: DEGENERATIVE AND REMOTE ISCHEMIC CHANGE. NO ACUTE HEMORRHAGE OR MASS EFFECT. IF CONCERN FOR ACUTE ISC HEMIA CORRELATE WITH MRI CLINICALLY WARRANTED.
--- NOTE | 2022-01-18 12:14 | XR ---
EXAMINATION TYPE: XR chest 2V DATE OF EXAM: 01/18/2022 COMPARISON: 12/25/2021 INDICATION: Syncope TECHNIQUE: Frontal and lateral views of the chest are obtained. FINDINGS: The heart size is normal. The pulmonary vasculature is normal. The lungs are clear. IMPRESSION: 1. No acute pulmonary process.
[2022-01-18] MEDS ORDERED: POTASSIUM CHLORIDE ER 20 MEQ TAB.ER PO STA (12:20)
[2022-01-18] MEDS ORDERED: NALOXONE 0.4 MG/ML 1 ML VIAL IV PRN (13:14)
[2022-01-18] MEDS ORDERED: clonazePAM 0.5 MG TAB PO PRN (13:24)
--- NOTE | 2022-01-18 14:27 | P.CNNES ---
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 Some of the history is accompanied from the was at bedside. His stated that for the past 1 week whenever the patient stands up and takes 2 steps to have the syncopal episodes. She stated it happened every time he stands up and walks a couple steps. She describes these episodes as upon standing up and taking the 2 steps, eyes deviating to the left and he puffs his mouth a few times and he'll shake non-rhythmically and then he'll fall and not respond for 30 seconds then immediately responds. She denied any foaming around the mouth, any bowel incontinence. He had one urinary incontinen ce episode. These episodes do not happen while heel sitting or sleeping according to the . He does have history of seizures but his seizures are white facial twitching and they have been happening since his stroke in 2017 and the last time as a 6 month ago. He does not have any jerking of the extremities with his seizures as stated earlier it's only twitching of the face on the right side. He is on Keppra 1500 mg twice a day and Depakote 500 mg 1 tablet 3 times a day. He is compliant with his medication. He follows up with his neurologist (Dr. Redding). Some other workup during this ED visit consisted of: Afebrile Supine blood pressure is 99/44 and sitting is 97/30 and according to he passed out while taking orthostatic. I spoke with nurse and she state that patient was weak from the begining of orthostatic but half way standing him his eyes rolled back and he fell backward non-responsive and shaking lasting 2-3 seconds then was back to baseline. WBC is 6.3K Calcium 8.9 CT of the head is reported as degenerative and remote ischemic change. No acute hemorrhage or mass effect. Concern for acute ischemia correlate with MRI as clinically warranted. Patient has low attenuation over the left frontal parietal region compatible with remote infarct in the left MCA and the body of the report. I personally reviewed the CT of the head and his old encephalomalacia is feel is more left frontal predominantly but in the left frontal temporal region. There is no acute or subacute ischemia that was able to appreciate and there is no intraconal hemorrhage. Review of Systems Review of system: The 12 point system was reviewed and apparent positive and negative per HPI. Past Medical History Past Medical History: Atrial Fibrillation, CVA/TIA, Deep Vein Thrombosis (DVT), GERD/Reflux, Pulmonary Embolus (PE), Seizure Disorder Additional Past Medical History / Comment(s): CVA 2017-has difficulty with speech at times,DVT rt leg and Rt PE 2016,uses a cane,last seizure Nov 2019 History of Any Multi-Drug Resistant Organisms: None Reported Past Surgical History: Back Surgery, Joint Replacement Additional Past Surgical History / Comment(s): juan knee replacements Past Anesthesia/Blood Transfusion Reactions: No Reported Reaction Past Psychological History: No Psychological Hx Reported Smoking Status: Former smoker Past Alcohol Use History: None Reported Past Drug Use History: None Reported - Past Family History Mother Family Medical History: Myocardial Infarction ([place]) Medications and Allergies Home Medications Medication Instructions Recorded Confirmed Type Divalproex Sodium [Depakote] 500 mg PO TID@0800,1400,199904/05/21 01/18/22 History Furosemide [Lasix] 40 mg PO DAILY@0800 04/05/21 01/18/22 History Pantoprazole [Protonix] 40 mg PO DAILY@0800 04/05/21 01/18/22 History Potassium Chloride [K-Tab ER] 10 meq PO DAILY@0800 04/05/21 01/18/22 History levETIRAcetam [Keppra] 1,000 mg PO BID@08,199904/05/21 01/18/22 History Aspirin EC [Ecotrin Low Dose] 81 mg PO HS@199912/25/21 01/18/22 History Atorvastatin Calcium [Lipitor] 40 mg PO HS@199912/25/21 01/18/22 History Clonazepam 0.5mg Odt Tab 0.5 mg PO DAILY PRN 12/25/21 01/18/22 History Cyanocobalamin (Vitamin B-12) 1,000 mcg PO DAILY@1400 12/25/21 01/18/22 History [Vitamin B-12] levETIRAcetam [Keppra] 500 mg PO BID@0800,199912/25/21 01/18/22 History Allergies Allergy/AdvReac Type Severity Reaction Status Date / Time No Known Allergies Allergy Verified 01/18/22 12:51 Physical Examination - Vital Signs Vital Signs: Vital Signs Temp Pulse Pulse Resp BP BP BP 01/18/22 12:49 70 18 97/30 99/44 01/18/22 11:26 97.5 F L 67 18 97/47 Pulse Ox 01/18/22 12:49 98 01/18/22 11:26 96 Intake and Output 01/17/22 01/18/22 01/18/22 22:59 06:59 14:59 Other: Weight 90.718 kg GENERAL: The patient is lying in bed and is not in acute distress. CHEST: The heart rate is regular rate rhythm. No murmurs to auscultation. LUNG: Clear to auscultation bilaterally no wheezing noted throughout. Not labored breathing. ABDOMEN/GI: Bowel sounds present in all 4 quadrants. No tenderness to palpation throughout. NEUROLOGICAL: Higher mental function: The patient is awake, alert, oriented to self. He correctly stated he was in the hospital but did not know name. He stated the year is 2023 but correctly stated the month. Patient is following simple commands. Has expressive aphasia (old). No neglect. Cranial nerves: The pupils are round, equal and reactive to ligh. Visual jackson are full to confrontation throughout. Extraocular movement is intact no nystagmus is noted. Facial sensation is normal to touch throughout. The facial strength is normal throughout. Hearing is mildly decreased bilaterally to hand rub. Tongue is midline and moved [id number] without any difficulty. Has mild to moderate dysarthria is noted (old). Shoulder shrug is normal bilaterally. Motor: The strength is 5 over 5 throughout. Normal tone and bulk. Cerebellum: Normal finger to nose bilaterally. Sensation: Sensation is normal to touch throughout. Reflexes (right/left): 1+ throughout. Plantars are downgoing bilaterally. Results - Laboratory Findings CBC and BMP: 01/18/22 11:25 01/18/22 11:25 Abnormal Lab Findings: Abnormal Labs 01/18/22 01/18/22 11:25 11:25 RBC 3.33 L Hgb 11.4 L Hct 33.1 L Plt Count 121 L Sodium 133 L Potassium 3.2 L Chloride 94 L Carbon Dioxide 31 H Total Bilirubin 1.4 H Total Protein 5.2 L Albumin 2.7 L Assessment and Plan Assessment: This is a 71-year-old gentleman who has repeated syncopal episodes for the past 1 week whenever he stands up and walks 2 steps in which she has eyes deviated to the left with puffing of the mouth then nonrhythmic shaking of the arms and passing out lasting less than 30 seconds in response immediately according to the . They are different than his baseline seizures. * Repeated syncopal episodes for the past 1 week seems more orthostatic/positional. Orthostatic was attempted to be performed in our facility and per nurse and he passed out lasting <3 seconds with eye rolling back, shaking then responded immediately. * History of seizures since 2017 (has right facial twitching). * History of left frontal hemorrhagic stroke in 2017 with residual expressive aphasia and dysarthria * Atrial fibrillation not on any anticoagulation because of history of hemorrhagic stroke * History of DVT * History of PE Plan: I ordered routine EEG. I'll resume his home antiepileptic drug and not modify them (Keppra 1500mg bid and Depakote 500mg 1 tab tid). Ordered Lactic acid vein. Cardiology team is consulted for syncopal episode Recommend compression stocking and if still having syncopal episode consider either salt tab. If that does not help consider florinef. Will defer management to primary and cardiology team. Consulted PT and OT for gait training. Upon discharge, the patient needs to follow-up with his neurologist (Dr. Ramos) within 1-2 weeks. The plan is discussed with his nurse and his . Thank you for the consultation. Salvador Reyes M.D. Neuro-Hospitalist Time with Patient: Greater than 30
[2022-01-18] MEDS: DIVALPROEX 500 MG TABLET.DR PO SCH ×2 (14:30→20:37)
[2022-01-18] MEDS: SODIUM CHLORIDE 0.9% 1,000 ML IV SCH (14:31)
[2022-01-18] MEDS: CYANOCOBALAMIN 500 MCG TAB PO SCH (14:31)
--- NOTE | 2022-01-18 15:18 | P.HPIM ---
History of Present Illness H&P Date: 01/18/22 Chief Complaint: Syncope Patient is a 71-year-old male with past medical history of CVA with hemorrhagic transformation, seizure disorder, atrial fibrillation status post watchman device, nonischemic cardiomyopathy, dyslipidemia presenting from home with co ncerns of syncope and fall. Per , patient was recently in the hospital with bradycardia and orthostatic hypotension. He had falls below to his previous hospitalization. There were changes made to his medications during his last hospitalization. However, over the last 1 week patient has been having shaking spells each time he stands up, then has syncope and fall. There is no post ictal or loss of bladder or bowel control. It only happens when he stands up. He denies any chest pain, palpitations, shortness of breath, lightheadedness, abdominal pain, urinary complaints. He does claim that he has 4 bowel movements daily but they are formed. is concerned if he is having seizures. In the ED, his vital signs were within normal limits, but did have positive orthostatic vitals when going from supine to sitting. He was unable to stand. Patient seen and examined at bedside. Pertinent positives and negatives as discussed in HPI, a complete review of systems was performed and all other systems are negative. His blood work was remarkable for potassium of 3.2. EKG showed frequent PVCs. Chest x-ray shows no acute changes. Brain CT shows degenerative and remote ischemic changes, but no acute hemorrhage or mass effect. Vital signs reviewed General: nontoxic, no distress, appears at stated age Derm: warm, dry Head: atraumatic, normocephalic, symmetric Eyes: EOMI, no lid lag, anicteric sclera, pupils equal round reactive to light ENT: Nose and ears atraumatic, no thrush, no pharyngeal erythema Neck: No thyromegaly, no cervical lymphadenopathy, trachea midline, supple Mouth: no lip lesion, mucus membranes moist Cardiovascular: S1S2 reg, no murmur, no edema, capillary refill less than 2 seconds Lungs: clear to auscultation bilateral, no rhonchi, no rales, no wheeze, no accessory muscle use Abdominal: soft, nontender to palpation, no guarding, no appreciable organomegaly, normal bowel sounds Ext: no gross muscle atrophy, muscle strength muscle strength 5 out of 5 in all 4 extremities, no contractures Neuro: CN II-XII grossly intact, light touch intact all 4 extremities Psych: Alert, oriented, appropriate affect Assessment/Plan: Syncope and fall Seizure history -Orthostatic positive, we'll continue fluids -Neurology consult - restarted home seizure medications, levels pending -Routine EEG pending -Cardiology consult -Telemetry Nonischemic cardiomyopathy -Last LVEF 55% -will hold Lasix given orthostatic hypertension -Cardiology consult Atrial fibrillation -Status post watchman device Hypokalemia -Given oral potassium in the ED Dyslipidemia -Continue home meds The patient is admitted with an anticipated greater than 2 midnight stay for evaluation of syncope and fall. Surrogate decision-maker: CODE STATUS: Full code DVT prophylaxis: Subcu heparin Anticipated discharge date: 01/20/[address]: Home A total of 48 minutes was spent on the care of this complex patient more than 50% of the time was spent in counseling and care coordination. Past Medical History Past Medical History: Atrial Fibrillation, CVA/TIA, Deep Vein Thrombosis (DVT), GERD/Reflux, Pulmonary Embolus (PE), Seizure Disorder Additional Past Medical History / Comment(s): CVA 2016-has difficulty with speech at times,DVT rt leg and Rt PE 2016,uses a cane,last seizure Nov 2019 History of Any Multi-Drug Resistant Organisms: None Reported Past Surgical History: Back Surgery, Joint Replacement Additional Past Surgical History / Comment(s): juan knee replacements Past Anesthesia/Blood Transfusion Reactions: No Reported Reaction Past Psychological History: No Psychological Hx Reported Smoking Status: Former smoker Past Alcohol Use History: None Reported Past Drug Use History: None Reported - Past Family History Mother Family Medical History: Myocardial Infarction ([place]) Medications and Allergies Home Medications Medication Instructions Recorded Confirmed Type Divalproex Sodium [Depakote] 500 mg PO TID@0800,1400,199904/05/21 01/18/22 History Furosemide [Lasix] 40 mg PO DAILY@0800 04/05/21 01/18/22 History Pantoprazole [Protonix] 40 mg PO DAILY@0800 04/05/21 01/18/22 History Potassium Chloride [K-Tab ER] 10 meq PO DAILY@0800 04/05/21 01/18/22 History levETIRAcetam [Keppra] 1,000 mg PO BID@0800,199904/05/21 01/18/22 History Aspirin EC [Ecotrin Low Dose] 81 mg PO HS@199912/25/21 01/18/22 History Atorvastatin Calcium [Lipitor] 40 mg PO HS@199912/25/21 01/18/22 History Clonazepam 0.5mg Odt Tab 0.5 mg PO DAILY PRN 12/25/21 01/18/22 History Cyanocobalamin (Vitamin B-12) 1,000 mcg PO DAILY@1400 12/25/21 01/18/22 History [Vitamin B-12] levETIRAcetam [Keppra] 500 mg PO BID@08,199912/25/21 01/18/22 History Allergies Allergy/AdvReac Type Severity Reaction Status Date / Time No Known Allergies Allergy Verified 01/18/22 12:51 Physical Exam Vitals: Vital Signs Temp Pulse Pulse Resp BP BP BP 01/18/22 14:29 67 18 112/77 01/18/22 12:49 70 18 97/30 99/44 01/18/22 11:26 97.5 F L 67 18 97/47 Pulse Ox 01/18/22 14:29 98 01/18/22 12:49 98 01/18/22 11:26 96 Intake and Output 01/17/22 01/18/22 01/18/22 22:59 06:59 14:59 Other: Weight 90.718 kg Results CBC & Chem 7: 01/18/22 11:25 01/18/22 11:25 Labs: Abnormal Lab Results - Last 24 Hours (Table) 01/18/22 01/18/22 Range/Units 11:25 11:25 RBC 3.33 L (4.30-5.90) m/uL Hgb 11.4 L (13.0-17.5) gm/dL Hct 33.1 L (39.0-53.0) % Plt Count 121 L (150-450) k/uL Sodium 133 L (137-145) mmol/L Potassium 3.2 L (3.5-5.1) mmol/L Chloride 94 L (98-107) mmol/L Carbon Dioxide 31 H (22-30) mmol/L Total Bilirubin 1.4 H (0.2-1.3) mg/dL Total Protein 5.2 L (6.3-8.2) g/dL Albumin 2.7 L (3.5-5.0) g/dL
[2022-01-18] MEDS: HEPARIN SODIUM,PORCINE/PF 5,000 UNIT/0.5 ML SYRINGE SQ SCH (18:46)
[2022-01-18] MEDS ORDERED: levETIRAcetam 500 MG TAB PO SCH (20:00)
[2022-01-18] MEDS: ASPIRIN 81 MG PO SCH (20:37)
[2022-01-18] MEDS: levETIRAcetam 500 MG TAB PO SCH (20:37)
[2022-01-18] MEDS: ATORVASTATIN 40 MG TAB PO SCH (20:37)
[2022-01-19] MEDS: HEPARIN SODIUM,PORCINE/PF 5,000 UNIT/0.5 ML SYRINGE SQ SCH ×4 (00:02→23:44)
--- NOTE | 2022-01-19 01:46 | EEG ---
ELECTROENCEPHALOGRAM REPORT CLINICAL HISTORY: This is a 71-year-old gentleman with history of seizure, who presented because of multiple syncopal episodes at home. The video EEG is obtained to evaluate for seizure epileptiform activity. RELEVANT MEDICATION: The patient is on Keppra and Depakote. EEG TYPE: A routine 21-channel EEG is performed with video using the 10/20 electrode placement system. DESCRIPTION: Wakefulness is obtained. During awake state, the background consists of low-to- moderate voltage of 6 to 7 hertz activity. There was no physiological stage 2 sleep architecture seen. There is no focal slowing seen. There is a significant amount of diffuse electrode artifact during the first third of the study as well as towards the end of the study. INTERICTAL AND ICTAL: None. ACTIVATION PROCEDURE: Photic stimulation did not evoke a posterior driving response. There is no abnormality during the photic stimulation. Hyperventilation is not performed. CLINICAL INTERPRETATION: This is an abnormal routine EEG. The background slowing is suggestive of mild encephalopathy. Otherwise, there is no focal slowing, epileptiform discharge, or seizure on the EEG. Clinical correlation is recommended MMODL / IJN: [id number] /
[2022-01-19] MEDS: SODIUM CHLORIDE 0.9% 1,000 ML IV SCH ×2 (03:39→11:52)
[2022-01-19] MEDS: levETIRAcetam 500 MG TAB PO SCH ×2 (08:05→20:42)
[2022-01-19] MEDS: PANTOPRAZOLE 40 MG TABLET PO SCH (08:09)
[2022-01-19] MEDS: DIVALPROEX 500 MG TABLET.DR PO SCH ×3 (08:10→20:41)
[2022-01-19 09:31] LABS: Basophils % (A) 0 %; Eosinophils # (A) 0.1 k/uL (0-0.7); Eosinophils % (A) 2 %; HCT 33.5 % (39.0-53.0); HGB 10.9 gm/dL (13.0-17.5); Lymphocytes # (A) 1.5 k/uL (1.0-4.8); Lymphocytes % (A) 34 %; MCH 33.7 pg (25.0-35.0); MCHC 32.6 g/dL (31.0-37.0); MCV 103.3 fL (80.0-100.0); Macrocytosis Slight; Mean Platelet Volume 8.6; Monocytes # (A) 0.5 k/uL (0-1.0); Monocytes % (A) 10 %; Neutrophils # (A) 2.3 k/uL (1.3-7.7); Neutrophils % (A) 52 %; Platelet Count 124 k/uL (150-450); RBC 3.25 m/uL (4.30-5.90); RDW 13.8 % (11.5-15.5); WBC 4.4 k/uL (3.8-10.6)
[2022-01-19 09:51] LABS: Albumin 2.6 g/dL (3.5-5.0); Calcium 8.6 mg/dL (8.4-10.2); Total Protein 4.7 g/dL (6.3-8.2)
--- NOTE | 2022-01-19 10:36 | P.CRDCN ---
History of Present Illness History of present illness: This is a 71-year-old male with a past medical history significant for CVA with hemorrhagic conversion in 2017, seizures, hyperlipidemia, hypertension, atrial flutter with previous ablation, paroxysmal atrial fibrillation with previous watchman device in 2020, and nonischemic cardiomyopathy with an ejection fraction of 30-35%. Patient follows in the office with Dr. Conley. We have been asked to see the patient in consultation for syncope. Patient presented to the hospital with a chief complaint of syncopal episodes. Patient states that when he stands and starts to take about 2 steps to have the syncopal episodes. He has had numerous per day for the past 2 days. She stated it happens every time he stands up and walks a couple steps. He denies any symptoms of chest pain, shortness of breath, lightheadedness, or dizziness, or palpitaitons. He states he just "passes out", and not respond for about 30 seconds then immediately responds. He states his and [id number] help him when this occurs. He denies any loss of bowel or bladder, weakness, headache. DIAGNOSTICS * EKG reveals sinus rhythm with PVC, non-specific ST-T wave abnormalities * Telemetry: Sinus bradycardia HR 43-50s * Loop recorder interrogation today revealed sinus bradycardia, heart rate 4150s, no acute events or high degree AV block noted. * Chest xray trace bilateral pleural effusions without focal consolidation. COPD changes. * Laboratory data:WBC 4, hemoglobin 10.9, platelets 124, sodium 133, potassium 4.0, BUN 16, serum creatinine 1.1, magnesium 1.8, troponin negative.TSH on 12/26/2021 within normal limits. * Current home cardiac medications include aspirin 81 mg daily, atorvastatin 40 mg daily, Lasix 40 mg daily * Most recent echocardiogram 12/26/2021 revealed ejection fraction 55%. with no significant abnormality and Doppler exam, no pericardial effusion. No significant pulmonary hypertension. * Cardiac catheterization history: March 2021 revealing normal coronary arteries. Low normal left-sided filling pressures. REVIEW OF SYSTEMS: At the time of my exam: CONSTITUTIONAL: Denies fever or chills. +syncope HEENT: Denies blurred vision, vision changes, or eye pain. Denies hemoptysis CARDIOVASCULAR: Denies chest pain. Denies orthopnea. Denies PND. Denies palpitations RESPIRATORY: Denies shortness of breath. GASTROINTESTINAL: Denies abdominal pain. Denies nausea or vomiting. HEMATOLOGIC: Denies bleeding disorders. GENITOURINARY: Denies any blood in urine. SKIN: Denies pruitis. Denies rash. PHYSICAL EXAM: VITAL SIGNS: Reviewed. BP lying 146/82, HR 56 BP sitting 93/44 HR 72 GENERAL: Well-developed in no acute distress. HEENT: Head is normocephalic. Pupils are equal, round. Sclerae anicteric. Mucous membranes of the mouth are moist. Neck supple. No JVD or thyromegaly LUNGS: Respirations even and unlabored. Lungs essentially clear to auscultation bilaterally. HEART: Regular rate and rhythm. S1 and S2 heard. ABDOMEN: Soft. Nondistended. Nontender. EXTREMITIES: Normal range of motion. No clubbing or cyanosis. Peripheral pulses intact. No lower extremity edema NEUROLOGIC: Awake and alert. Oriented x 3. ASSESSMENT: Syncopal episodes, likely related to orthostatic hypotension Orthostatic hypotension Sinus bradycardia CVA with hemorrhagic conversion in 2017 Hx of seizures Hyperlipidemia Hypertension Hx of atrial flutter with previous ablation Paroxysmal atrial fibrillation with previous watchman device in 2020 Nonischemic cardiomyopathy with improved EF Normal coronary arteries by cardiac catheterization in 03/2021 Loop recorder implantation Small ASD previously noted and related to Watchman implant PLAN: Loop recorder interrogation today revealed sinus bradycardia, heart rate 4150s, no acute events or high degree AV block noted. Hold Lasix at this time Start midodrine 5mg TID MINAL hose Monitor orthostatics Continue cardiac telemetry Increase activity as tolerated further recommendations based on clinical course Nurse practitioner note has been reviewed by physician. Signing provider agrees with the documented findings, assessment, and plan of care. 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, DVT RT leg and RT PE 2017, uses a cane, last seizure "one week ago" History of Any Multi-Drug Resistant Organisms: None Reported Past Surgical History: Back Surgery, Joint Replacement Additional Past Surgical History / Comment(s): b/l knee replacements Past Anesthesia/Blood Transfusion Reactions: No Reported Reaction Past Psychological History: No Psychological Hx Reported Smoking Status: Former smoker Past Alcohol Use History: None Reported Additional Past Alcohol Use History / Comment(s): quit smoking 30 years ago Past Drug Use History: None Reported - Past Family History Mother Family Medical History: Myocardial Infarction (OR) Medications and Allergies Home Medications Medication Instructions Recorded Confirmed Type Divalproex Sodium [Depakote] 500 mg PO TID@0800,1400,199904/05/21 01/18/22 History Furosemide [Lasix] 40 mg PO DAILY@0800 04/05/21 01/18/22 History Pantoprazole [Protonix] 40 mg PO DAILY@0800 04/05/21 01/18/22 History Potassium Chloride [K-Tab ER] 10 meq PO DAILY@0800 04/05/21 01/18/22 History levETIRAcetam [Keppra] 1,000 mg PO BID@0800,199904/05/21 01/18/22 History Aspirin EC [Ecotrin Low Dose] 81 mg PO HS@199912/25/21 01/18/22 History Atorvastatin Calcium [Lipitor] 40 mg PO HS@199912/25/21 01/18/22 History Clonazepam 0.5mg Odt Tab 0.5 mg PO DAILY PRN 12/25/21 01/18/22 History Cyanocobalamin (Vitamin B-12) 1,000 mcg PO DAILY@1400 12/25/21 01/18/22 History [Vitamin B-12] levETIRAcetam [Keppra] 500 mg PO BID@0800,199912/25/21 01/18/22 History Allergies Allergy/AdvReac Type Severity Reaction Status Date / Time No Known Allergies Allergy Verified 01/18/22 12:51 Physical Exam Vitals: Vital Signs Temp Pulse Pulse Pulse Resp BP BP 01/19/22 04:00 98.0 F 51 L 16 106/55 01/19/22 00:00 97.8 F 53 L 16 01/18/22 20:00 97.4 F L 54 L 18 100/56 01/18/22 17:59 66 18 122/96 01/18/22 14:29 67 18 112/77 01/18/22 12:49 70 18 01/18/22 11:26 97.5 F L 67 18 97/47 BP BP Pulse Ox 01/19/22 04:00 100 01/19/22 00:00 96/58 99 01/18/22 20:00 97 01/18/22 17:59 99 01/18/22 14:29 98 01/18/22 12:49 97/30 99/44 98 01/18/22 11:26 96 Intake and Output 01/18/22 01/19/22 01/19/22 22:59 06:59 14:59 Intake Total 10 Output Total 150 Balance 10 -150 Intake: IV 10 Invasive Line 1 10 Output: Urine 150 Other: Voiding Method Urinal Urinal Weight 90.718 kg Results 01/19/22 08:37 01/19/22 08:37 Cardiac Enzymes 01/18/22 01/18/22 Range/Units 11:25 11:25 AST 29 (17-59) U/L Troponin I <0.012 (0.000-0.034) ng/mL Coagulation 01/18/22 Range/Units 11:25 PT 11.2 (9.0-12.0) sec APTT 23.1 (22.0-30.0) sec CBC 01/18/22 Range/Units 11:25 WBC 6.3 (3.8-10.6) k/uL RBC 3.33 L (4.30-5.90) m/uL Hgb 11.4 L (13.0-17.5) gm/dL Hct 33.1 L (39.0-53.0) % Plt Count 121 L (150-450) k/uL Comprehensive Metabolic Panel 01/18/22 Range/Units 11:25 Sodium 133 L (137-145) mmol/L Potassium 3.2 L (3.5-5.1) mmol/L Chloride 94 L (98-107) mmol/L Carbon Dioxide 31 H (22-30) mmol/L BUN 18 (9-20) mg/dL Creatinine 1.17 (0.66-1.25) mg/dL Glucose 96 (74-99) mg/dL Calcium 8.9 (8.4-10.2) mg/dL AST 29 (17-59) U/L ALT 17 (4-49) U/L Alkaline Phosphatase 62 (38-126) U/L Total Protein 5.2 L (6.3-8.2) g/dL Albumin 2.7 L (3.5-5.0) g/dL Current Medications Generic Name Dose Route Start Last Admin Trade Name Lucia PRN Reason Stop Dose Admin Aspirin 81 mg 01/18/22 20:00 01/18/22 20:37 Aspirin 81 Mg PO 81 mg HS@1999 GISSELLE Administration Atorvastatin Calcium 40 mg 01/18/22 20:00 01/18/22 20:37 Atorvastatin 40 Mg Tab PO 40 mg HS@1999 GISSELLE Administration Clonazepam 0.5 mg 01/18/22 13:24 Clonazepam 0.5 Mg Tab PO DAILY PRN Seizures Cyanocobalamin 1,000 mcg 01/18/22 14:00 01/18/22 14:31 Cyanocobalamin 500 Mcg Tab PO 1,000 mcg DAILY@1400 GISSELLE Administration Divalproex Sodium 500 mg 01/18/22 14:00 01/18/22 20:37 Divalproex 500 Mg Tablet.Dr PO 500 mg TID@0800,1399,1999 GISSELLE Administration Heparin Sodium (Porcine) 5,000 unit 01/18/22 16:00 01/19/22 00:02 Heparin Sodium,Porcine/Pf 5,000 Unit/0.5 Ml Syringe SQ 5,000 unit Q8HR GISSELLE Administration Sodium Chloride 1,000 mls @ 75 mls/hr 01/18/22 13:15 01/19/22 03:39 Saline 0.9% IV Not Given .[id number] [facility] Levetiracetam 1,500 mg 01/18/22 20:00 01/18/22 20:37 Levetiracetam 500 Mg Tab PO 1,500 mg BID@799,1999 [facility] Administration Naloxone HCl 0.2 mg 01/18/22 13:14 Naloxone 0.4 Mg/Ml 1 Ml Vial IV Q2M PRN Opioid Reversal Pantoprazole Sodium 40 mg 01/19/22 08:00 Pantoprazole 40 Mg Tablet PO DAILY@0800 [facility] Intake and Output 01/18/22 01/19/22 01/19/22 22:59 06:59 14:59 Intake Total 10 Output Total 150 Balance 10 -150 Intake: IV 10 Invasive Line 1 10 Output: Urine 150 Other: Voiding Method Urinal Urinal Weight 90.718 kg 01/18/22 11:25 01/18/22 11:25
--- NOTE | 2022-01-19 11:22 | P.PN ---
Subjective Progress Note Date: 01/19/22 Principal diagnosis: syncope Hospital Course: Patient is a 71-year-old male with past medical history of CVA with hemorrhagic transformation, seizure disorder, atrial fibrillation status post watchman device, nonischemic cardiomyopathy, dyslipidemia presenting from home with concerns of syncope and fall. Orthostatic vitals positive. Neurology was consulted, seizure medications restarted. Cardiology consult. Subjective: Patient seen and examined at bedside. No acute events overnight. He denies any chest pain, shortness of breath, abdominal pain. Denies any palpitations. He has not gotten out of the bed since being in the hospital. Pertinent positives and negatives as discussed above, a complete review of systems was performed and all other systems are negative. Vitals Signs Reviewed. General: nontoxic, no distress, appears at stated age Derm: warm, dry Head: atraumatic, normocephalic, symmetric Eyes: EOMI, no lid lag, anicteric sclera, pupils equal round reactive to light ENT: Nose and ears atraumatic Neck: No thyromegaly, supple Mouth: no lip lesion, mucus membranes moist Cardiovascular: S1S2 reg, no murmur, no edema, capillary refill less than 2 seconds Lungs: clear to auscultation bilateral, no rhonchi, no rales, no wheeze, no accessory muscle use Abdominal: soft, nontender to palpation, no guarding, no appreciable org anomegaly, normal bowel sounds Ext: no gross muscle atrophy, muscle strength muscle strength 5 out of 5 in all 4 extremities, no contractures Neuro: CN II-XII grossly intact, light touch intact all 4 extremities Psych: Alert, oriented, appropriate affect Assessment and Plan: Syncope and fall Seizure history orthostatic hypotension -IV fluids -Neurology consult - restarted home seizure medications -EEG- background slowing -Cardiology consult - device interrogated, patient in sinus bradycardia, hold lasix, midodrine 5 TID, MINAL hose -Telemetry Nonischemic cardiomyopathy -Last LVEF 55% -will hold Lasix given orthostatic hypertension -Cardiology consult Atrial fibrillation -Status post watchman device Hypokalemia -resolved Dyslipidemia -Continue home meds DVT ppx: heparin sq Code status: Full code Anticipated discharge place: likely home Anticipated discharge time: 01/20/22 Objective - Vital Signs Vital signs: Vital Signs Temp 97.6 F 01/19/22 07:48 Pulse 72 01/19/22 09:27 Resp 14 01/19/22 07:48 BP 146/82 01/19/22 09:27 Pulse Ox 99 01/19/22 07:48 FiO2 Intake & Output 01/18/22 01/19/22 01/19/22 18:59 06:59 18:59 Intake Total 10 118 Output Total 150 Balance -140 118 Weight 90.718 kg 90.718 kg Intake: IV 10 Invasive Line 1 10 Oral 118 Output: Urine 150 Other: Voiding Method Urinal Urinal - Labs CBC & Chem 7: 01/19/22 08:37 01/19/22 08:37 Labs: Abnormal Lab Results - Last 24 Hours (Table) 01/18/22 01/18/22 01/18/22 Range/Units 11:25 11:25 14:36 RBC 3.33 L (4.30-5.90) m/uL Hgb 11.4 L (13.0-17.5) gm/dL Hct 33.1 L (39.0-53.0) % MCV (80.0-100.0) fL Plt Count 121 L (150-450) k/uL Sodium 133 L (137-145) mmol/L Potassium 3.2 L (3.5-5.1) mmol/L Chloride 94 L (98-107) mmol/L Carbon Dioxide 31 H (22-30) mmol/L Glucose (74-99) mg/dL Total Bilirubin 1.4 H (0.2-1.3) mg/dL Total Protein 5.2 L (6.3-8.2) g/dL Albumin 2.7 L (3.5-5.0) g/dL Levetiracetam 101.9 H (3.0-60.0) ug/mL 01/19/22 01/19/22 Range/Units 08:37 08:37 RBC 3.25 L (4.30-5.90) m/uL Hgb 10.9 L (13.0-17.5) gm/dL Hct 33.5 L (39.0-53.0) % MCV 103.3 H (80.0-100.0) fL Plt Count 124 L (150-450) k/uL Sodium 133 L (137-145) mmol/L Potassium (3.5-5.1) mmol/L Chloride 95 L (98-107) mmol/L Carbon Dioxide 34 H (22-30) mmol/L Glucose 112 H (74-99) mg/dL Total Bilirubin (0.2-1.3) mg/dL Total Protein 4.7 L (6.3-8.2) g/dL Albumin 2.6 L (3.5-5.0) g/dL Levetiracetam (3.0-60.0) ug/mL
[2022-01-19] MEDS: MIDODRINE 5 MG TAB PO SCH ×2 (11:52→16:35)
--- NOTE | 2022-01-19 12:45 | P.PN ---
Subjective Progress Note Date: 01/19/22 Patient seen at bedside and no further syncopal episode. He is accompanied by his and that she agrees. He feels back to baseline. Objective - Vital Signs Vital signs: Vital Signs Temp 97.6 F 01/19/22 07:48 Pulse 50 L 01/19/22 11:00 Resp 20 01/19/22 11:00 BP 124/71 01/19/22 11:00 Pulse Ox 96 01/19/22 11:00 FiO2 Intake & Output 01/18/22 01/19/22 01/19/22 18:59 06:59 18:59 Intake Total 10 118 Output Total 150 Balance -140 118 Weight 90.718 kg 90.718 kg Intake: IV 10 Invasive Line 1 10 Oral 118 Output: Urine 150 Other: Voiding Method Urinal Urinal - Exam GENERAL: The patient is lying in bed and is not in acute distress. NEUROLOGICAL: Higher mental function: The patient is awake, alert, oriented to self. He correctly stated he was in the hospital but did not know name. He stated the year is 2023 but correctly stated the month. Patient is following simple commands. Has expressive aphasia (old). No neglect. Cranial nerves: The pupils are round, equal and reactive to ligh. Visual jackson are full to confrontation throughout. Extraocular movement is intact no nystagmus is noted. Facial sensation is normal to touch throughout. The facial strength is normal throughout. Hearing is mildly decreased bilaterally to hand rub. Tongue is midline and moved [id number] without any difficulty. Has mild to moderate dysarthria is noted (old). Shoulder shrug is normal bilaterally. Motor: The strength is 5 over 5 throughout. Normal tone and bulk. Cerebellum: Normal finger to nose bilaterally. Sensation: Sensation is normal to touch throughout. Reflexes (right/left): 1+ throughout. Plantars are downgoing bilaterally. Some other workup during this ED visit consisted of: Supine blood pressure is 99/44 and sitting is 97/30 and according to he pas sed out while taking orthostatic. I spoke with nurse and she state that patient was weak from the begining of orthostatic but half way standing him his eyes rolled back and he fell backward non-responsive and shaking lasting 2-3 seconds then was back to baseline. WBC is 6.3K Calcium 8.9 CT of the head is reported as degenerative and remote ischemic change. No acute hemorrhage or mass effect. Concern for acute ischemia correlate with MRI as clinically warranted. Patient has low attenuation over the left frontal parietal region compatible with remote infarct in the left MCA and the body of the report. I personally reviewed the CT of the head and his old encephalomalacia is feel is more left frontal predominantly but in the left frontal temporal region. There is no acute or subacute ischemia that was able to appreciate and there is no intraconal hemorrhage. Keppra level is 101.9 which is supratherapeutic the normal level supposed to be between 3-60 Depakote level is 70.6 and a normal level supposed to be between 50 to 120s of these within the therapeutic range Lactic acid vein is 1.4. - Labs CBC & Chem 7: 01/19/22 08:37 01/19/22 08:37 Labs: Abnormal Lab Results - Last 24 Hours (Table) 01/18/22 01/19/22 01/19/22 Range/Units 14:36 08:37 08:37 RBC 3.25 L (4.30-5.90) m/uL Hgb 10.9 L (13.0-17.5) gm/dL Hct 33.5 L (39.0-53.0) % MCV 103.3 H (80.0-100.0) fL Plt Count 124 L (150-450) k/uL Sodium 133 L (137-145) mmol/L Chloride 95 L (98-107) mmol/L Carbon Dioxide 34 H (22-30) mmol/L Glucose 112 H (74-99) mg/dL Total Protein 4.7 L (6.3-8.2) g/dL Albumin 2.6 L (3.5-5.0) g/dL Levetiracetam 101.9 H (3.0-60.0) ug/mL Assessment and Plan Assessment: This is a 71-year-old gentleman who has repeated syncopal episodes for the past 1 week whenever he stands up and walks 2 steps in which she has eyes deviated to the left with puffing of the mouth then nonrhythmic shaking of the arms and passing out lasting less than 30 seconds in response immediately according to the . They are different than his baseline seizures. * Repeated syncopal episodes for the past 1 week seems more orthostatic/positional. Orthostatic was attempted to be performed in our facility and per nurse and he passed out lasting <3 seconds with eye rolling back, shaking then responded immediately. * History of seizures since 2017 (has right facial twitching). * History of left frontal hemorrhagic stroke in 2017 with residual expressive aphasia and dysarthria * Atrial fibrillation not on any anticoagulation because of history of hemorrhagic stroke * History of DVT * History of PE Plan: Routine EEG is abnormal. The background slowing suggestive of mild encephalopathy. Otherwise there is no focal slowing, epileptifform discharges or seizure on the EEG Continue his home antiepileptic drug and not modify them (Keppra 1500mg bid and Depakote 500mg 1 tab tid). This Keppra level is supratherapeutic we'll defer modification of his antiep ileptic drug to his neurologist as an outpatient Cardiology team is consulted for syncopal episode. Cardiology saw him on the midbrain 5 mg 1 tablet 3 times a day. Consulted PT and OT for gait training. Upon discharge, the patient needs to follow-up with his neurologist (Dr. Ramos) within 1-2 weeks. The plan is discussed with his nurse and his . From a neurologic perspective no additional workup is needed. We'll sign off. Please reconsult if needed. Salvador Reyes M.D. Neuro-Hospitalist Time with Patient: Less than 30
[2022-01-19] MEDS: CYANOCOBALAMIN 500 MCG TAB PO SCH (13:34)
[2022-01-19] MEDS: ATORVASTATIN 40 MG TAB PO SCH (20:41)
[2022-01-19] MEDS: ASPIRIN 81 MG PO SCH (20:41)
[2022-01-20] MEDS: MIDODRINE 5 MG TAB PO SCH ×3 (06:02→17:54)
[2022-01-20] MEDS: SODIUM CHLORIDE 0.9% 1,000 ML IV SCH ×3 (06:03→20:36)
[2022-01-20] MEDS: PANTOPRAZOLE 40 MG TABLET PO SCH (10:28)
[2022-01-20] MEDS: DIVALPROEX 500 MG TABLET.DR PO SCH ×3 (10:28→20:37)
[2022-01-20] MEDS: levETIRAcetam 500 MG TAB PO SCH ×2 (10:28→20:37)
[2022-01-20] MEDS: HEPARIN SODIUM,PORCINE/PF 5,000 UNIT/0.5 ML SYRINGE SQ SCH ×3 (10:29→23:24)
--- NOTE | 2022-01-20 10:37 | P.PN ---
Subjective Progress Note Date: 01/20/22 Principal diagnosis: syncope Hospital Course: Patient is a 71-year-old male with past medical history of CVA with hemorrhagic transformation, seizure disorder, atrial fibrillation status post watchman device, nonischemic cardiomyopathy, dyslipidemia presenting from home with concerns of syncope and fall. Orthostatic vitals positive. Neurology was consulted, seizure medications restarted. Cardiology consult. Added Midodrin. Compression stockings. PT/OT consulted. Subjective: Patient seen and examined at bedside. No acute events overnight. He denies any chest pain, shortness of breath, abdominal pain. Denies any palpitations. He has not gotten out of the bed since being in the hospital. Per nursing, physical therapy will try to get him out of bed today. Pertinent positives and negatives as discussed above, a complete review of systems was performed and all other systems are negative. Vitals Signs Reviewed. General: nontoxic, no distress, appears at stated age Derm: warm, dry Head: atraumatic, normocephalic, symmetric Eyes: EOMI, no lid lag, anicteric sclera ENT: Nose and ears atraumatic Neck: No thyromegaly, supple Mouth: no lip lesion, mucus membranes moist Cardiovascular: S1S2 reg, no murmur, no edema Lungs: clear to auscultation bilateral, no rhonchi, no rales, no wheeze, no accessory muscle use Abdominal: soft, nontender to palpation, no guarding, no appreciable organomegaly Ext: no gross muscle atrophy, muscle strength muscle strength 5 out of 5 in all 4 extremities, no contractures Neuro: CN II-XII grossly intact Psych: Alert, oriented, appropriate affect Assessment and Plan: Syncope and fall Seizure history orthostatic hypotension -IV fluids -Neurology consult - restarted home seizure medications -EEG- background slowing -Cardiology consult - device interrogated, patient in sinus bradycardia, hold lasix, midodrine 5 TID, MINAL hose -Telemetry -PT/OT Nonischemic cardiomyopathy -Last LVEF 55% -will hold Lasix given orthostatic hypertension -Cardiology consult Atrial fibrillation -Status post watchman device Hypokalemia -resolved Dyslipidemia -Continue home meds DVT ppx: heparin sq Code status: Full code Anticipated discharge place: likely home Anticipated discharge time: 01/21/22 Objective - Vital Signs Vital signs: Vital Signs Temp 97.8 F 01/20/22 03:11 Pulse 47 L 01/20/22 03:11 Resp 16 01/20/22 03:11 BP 114/53 01/20/22 03:11 Pulse Ox 99 01/20/22 03:11 FiO2 Intake & Output 01/19/22 01/20/22 01/20/22 18:59 06:59 18:59 Intake Total 118 Output Total 500 425 Balance -382 -425 Intake: Oral 118 Output: Urine 500 425 Other: Voiding Method Urinal Urinal # Voids 2 - Labs CBC & Chem 7: 01/19/22 08:37 01/19/22 08:37
--- NOTE | 2022-01-20 12:50 | P.PN ---
Subjective Progress Note Date: 01/20/22 Patient is examined resting comfortably in bed today. Patient was started on midodrine due to orthostatic hypotension. Patient has been on bedrest due to symptomatic with hypotension. He remains sinus bradycardia with a first-degree on the monitor, heart rate 40s to 50s. Patient has received one dose of midodrine. LOC the second dose this afternoon. On orthostatics will be reevaluated area he denies increased shortness of breath or chest pain. Objective - Vital Signs Vital signs: Vital Signs Temp 97.5 F L 01/20/22 08:30 Pulse 50 L 01/20/22 08:30 Resp 16 01/20/22 08:30 BP 114/52 01/20/22 08:30 Pulse Ox 99 01/20/22 08:30 FiO2 Intake & Output 01/19/22 01/20/22 01/20/22 18:59 06:59 18:59 Intake Total 118 Output Total 500 425 227 Balance -382 -425 -227 Intake: Oral 118 Output: Urine 500 425 200 Post Void Residual 27 Other: Voiding Method Urinal Urinal Urinal # Voids 2 - Exam PHYSICAL EXAM: VITAL SIGNS: Reviewed. GENERAL: Well-developed in no acute distress. HEENT: Head is normocephalic. Pupils are equal, round. Sclerae anicteric. Mucous membranes of the mouth are moist. NECK: Supple. No JVD or thyromegaly RESPIRATORY: Respirations even and unlabored. Lungs diminished to auscultation bilaterally. CARDIO: Regular rate and rhythm. S1 and S2 heard. No murmur or gallops. EXTREMITIES: Normal range of motion. No clubbing or cyanosis. Peripheral pulses intact. Negative for bilateral lower extremity edema NEURO: Orientated to person, time, mood is appropriate - Labs CBC & Chem 7: 01/19/22 08:37 01/19/22 08:37 Assessment and Plan Assessment: Syncopal episodes, likely related to orthostatic hypotension Orthostatic hypotension Sinus bradycardia CVA with hemorrhagic conversion in 2017 Hx of seizures Hyperlipidemia Hypertension Hx of atrial flutter with previous ablation Paroxysmal atrial fibrillation with previous watchman device in 2020 Nonischemic cardiomyopathy with improved EF Normal coronary arteries by cardiac catheterization in 03/2021 Loop recorder implantation Small ASD previously noted and related to Watchman implant Plan: Continue with midodrine Continue to monitor orthostatics Continue to hold Lasix Continue telemetry monitoring Further recommendations based on clinical course The above impression and plan of care have been discussed and directed by the s igning physician. Gerri Forrest, nurse practitioner, acting as scribe for signing physician.
[2022-01-20] MEDS: CYANOCOBALAMIN 500 MCG TAB PO SCH (15:26)
[2022-01-20] MEDS: ASPIRIN 81 MG PO SCH (20:37)
[2022-01-20] MEDS: ATORVASTATIN 40 MG TAB PO SCH (20:37)
[2022-01-21] MEDS: MIDODRINE 5 MG TAB PO SCH ×3 (06:16→17:27)
[2022-01-21] MEDS: HEPARIN SODIUM,PORCINE/PF 5,000 UNIT/0.5 ML SYRINGE SQ SCH ×3 (09:23→23:53)
[2022-01-21] MEDS: DIVALPROEX 500 MG TABLET.DR PO SCH ×3 (09:24→20:14)
[2022-01-21] MEDS: PANTOPRAZOLE 40 MG TABLET PO SCH (09:24)
[2022-01-21] MEDS: levETIRAcetam 500 MG TAB PO SCH ×2 (09:24→20:14)
--- NOTE | 2022-01-21 10:46 | P.PN ---
Subjective Progress Note Date: 01/21/22 Principal diagnosis: syncope Hospital Course: Patient is a 71-year-old male with past medical history of CVA with hemorrhagic transformation, seizure disorder, atrial fibrillation status post watchman device, nonischemic cardiomyopathy, dyslipidemia presenting from home with concerns of syncope and fall. Orthostatic vitals positive. Neurology was consulted, seizure medications restarted. Cardiology consult. Added Midodrin. Compression stockings. PT/OT consulted. Subjective: Patient seen and examined at bedside. No acute events overnight. He denies any chest pain, shortness of breath, abdominal pain. Denies any palpitations. He has not gotten out of the bed since being in the hospital. Patient is still symptomatic whenever he gets up from the bed. Pertinent positives and negatives as discussed above, a complete review of systems was performed and all other systems are negative. Vitals Signs Reviewed. General: nontoxic, no distress, appears at stated age Derm: warm, dry Head: atraumatic, normocephalic, symmetric Eyes: EOMI, no lid lag, anicteric sclera ENT: Nose and ears atraumatic Neck: No thyromegaly, supple Mouth: no lip lesion, mucus membranes moist Cardiovascular: S1S2 reg, no murmur, no edema Lungs: clear to auscultation bilateral, no rhonchi, no rales, no wheeze, no accessory muscle use Abdominal: soft, nontender to palpation, no guarding, no appreciable organomegaly Ext: no gross muscle atrophy, muscle strength muscle strength 5 out of 5 in all 4 extremities, no contractures Neuro: CN II-XII grossly intact Psych: Alert, oriented, appropriate affect Assessment and Plan: Syncope and fall Seizure history orthostatic hypotension -IV fluids -Neurology consult - restarted home seizure medications -EEG- background slowing -Cardiology consult - device interrogated, patient in sinus bradycardia, hold lasix, midodrine, MINAL hose -Increased the dose of Midodrin, if it fails, we'll consider fludrocortisone as well -Telemetry -PT/OT Nonischemic cardiomyopathy -Last LVEF 55% -will hold Lasix given orthostatic hypertension -Cardiology consult Atrial fibrillation -Status post watchman device Hypokalemia -resolved Dyslipidemia -Continue home meds DVT ppx: heparin sq Code status: Full code Anticipated discharge place: likely home Anticipated discharge time: 01/21/22 Objective - Vital Signs Vital signs: Vital Signs Temp 97.6 F 01/21/22 03:44 Pulse 50 L 01/21/22 03:44 Resp 16 01/21/22 03:44 BP 101/61 01/21/22 03:44 Pulse Ox 98 01/21/22 03:44 FiO2 Intake & Output 01/20/22 01/21/22 01/21/22 18:59 06:59 18:59 Intake Total 360 1450 0 Output Total 727 975 Balance -367 475 0 Intake: Intake, IV Titration 900 Amount Sodium Chloride 0.9% 1, 900 000 ml @ 75 mls/hr IV . [id number] [facility] Rx#:[id number] Oral 360 550 0 Output: Urine 700 975 Post Void Residual 27 Other: Voiding Method Urinal Urinal # Voids 3 - Labs CBC & Chem 7: 01/19/22 08:37 01/19/22 08:37
[2022-01-21] MEDS: CYANOCOBALAMIN 500 MCG TAB PO SCH (13:34)
--- NOTE | 2022-01-21 13:47 | P.PN ---
Subjective Progress Note Date: 01/21/22 Patient seen today in no signs of acute distress continues to be sinus bradycardia on the monitor heart rate in the 30s to 40s. He continue to have orthostatic hypotension and is symptomatic when standing. Will increase midodrine to 10 mg 3 times a day. Objective - Vital Signs Vital signs: Vital Signs Temp 97.6 F 01/21/22 03:44 Pulse 50 L 01/21/22 03:44 Resp 16 01/21/22 03:44 BP 101/61 01/21/22 03:44 Pulse Ox 98 01/21/22 03:44 FiO2 Intake & Output 01/20/22 01/21/22 01/21/22 18:59 06:59 18:59 Intake Total 360 1450 0 Output Total 727 975 Balance -367 475 0 Intake: Intake, IV Titration 900 Amount Sodium Chloride 0.9% 1, 900 000 ml @ 75 mls/hr IV . [id number] [facility] Rx#:[id number] Oral 360 550 0 Output: Urine 700 975 Post Void Residual 27 Other: Voiding Method Urinal Urinal # Voids 3 - Exam PHYSICAL EXAM: VITAL SIGNS: Reviewed. GENERAL: Well-developed in no acute distress. HEENT: Head is normocephalic. Pupils are equal, round. Sclerae anicteric. Mucous membranes of the mouth are moist. NECK: Supple. No JVD or thyromegaly RESPIRATORY: Respirations even and unlabored. Lungs diminished to auscultation bilaterally. CARDIO: Regular rate and rhythm. S1 and S2 heard. No murmur or gallops. EXTREMITIES: Normal range of motion. No clubbing or cyanosis. Peripheral pulses intact. Negative for bilateral lower extremity edema NEURO: Orientated to person, time, mood is appropriate - Labs CBC & Chem 7: 01/19/22 08:37 01/19/22 08:37 Assessment and Plan Assessment: Syncopal episodes, likely related to orthostatic hypotension Orthostatic hypotension Sinus bradycardia CVA with hemorrhagic conversion in 2017 Hx of seizures Hyperlipidemia Hypertension Hx of atrial flutter with previous ablation Paroxysmal atrial fibrillation with previous watchman device in 2020 Nonischemic cardiomyopathy with improved EF Normal coronary arteries by cardiac catheterization in 03/2021 Loop recorder implantation Small ASD previously noted and related to Watchman implant Plan: increase midodrine 10mg tid Continue to monitor orthostatics Continue to hold Lasix Continue telemetry monitoring Further recommendations based on clinical course The above impression and plan of care have been discussed and directed by the signing physician. Gerri Forrest, nurse practitioner, acting as scribe for signing physician.
[2022-01-21] MEDS: SODIUM CHLORIDE 0.9% 1,000 ML IV SCH (20:14)
[2022-01-21] MEDS: ASPIRIN 81 MG PO SCH (20:14)
[2022-01-21] MEDS: ATORVASTATIN 40 MG TAB PO SCH (20:14)
[2022-01-22] MEDS: MIDODRINE 5 MG TAB PO SCH ×3 (06:21→16:46)
[2022-01-22] MEDS: PANTOPRAZOLE 40 MG TABLET PO SCH (08:05)
[2022-01-22] MEDS: HEPARIN SODIUM,PORCINE/PF 5,000 UNIT/0.5 ML SYRINGE SQ SCH ×2 (08:05→16:46)
[2022-01-22] MEDS: levETIRAcetam 500 MG TAB PO SCH ×2 (08:05→19:56)
[2022-01-22] MEDS: DIVALPROEX 500 MG TABLET.DR PO SCH ×3 (08:06→19:56)
--- NOTE | 2022-01-22 09:28 | P.PN ---
Subjective Progress Note Date: 01/22/22 Principal diagnosis: syncope Hospital Course: Patient is a 71-year-old male with past medical history of CVA with hemorrhagic transformation, seizure disorder, atrial fibrillation status post watchman device, nonischemic cardiomyopathy, dyslipidemia presenting from home with concerns of syncope and fall. Orthostatic vitals positive. Neurology was consulted, seizure medications restarted. Cardiology consult. Added Midodrin. Compression stockings. PT/OT consulted. Subjective: Patient seen and examined at bedside. No acute events overnight. He denies any chest pain, shortness of breath, abdominal pain. Denies any palpitations. He has not gotten out of the bed since being in the hospital. Patient is still symptomatic whenever he gets up from the bed. Pertinent positives and negatives as discussed above, a complete review of systems was performed and all other systems are negative. Vitals Signs Reviewed. General: nontoxic, no distress, appears at stated age Derm: warm, dry Head: atraumatic, normocephalic, symmetric Eyes: EOMI, no lid lag, anicteric sclera ENT: Nose and ears atraumatic Neck: No thyromegaly, supple Mouth: no lip lesion, mucus membranes moist Cardiovascular: S1S2 reg, no murmur, no edema Lungs: clear to auscultation bilateral, no rhonchi, no rales, no wheeze, no accessory muscle use Abdominal: soft, nontender to palpation, no guarding, no appreciable organomegaly Ext: no gross muscle atrophy, muscle strength muscle strength 5 out of 5 in all 4 extremities, no contractures Neuro: CN II-XII grossly intact Psych: Alert, oriented, appropriate affect Assessment and Plan: Syncope and fall orthostatic hypotension Seizure history -IV fluids -Neurology consult - restarted home seizure medications -EEG- background slowing -Cardiology consult - device interrogated, patient in sinus bradycardia, hold lasix, midodrine, MINAL hose -Increased the dose of Midodrin, if it fails, we'll consider fludrocortisone as well -repeat Orthostatic vitals pending -Telemetry -PT/OT Nonischemic cardiomyopathy -Last LVEF 55% -will hold Lasix given orthostatic hypertension -Cardiology consult Atrial fibrillation -Status post watchman device Hypokalemia -resolved Dyslipidemia -Continue home meds DVT ppx: heparin sq Code status: Full code Anticipated discharge place: likely home Anticipated discharge time: 01/23/22 Objective - Vital Signs Vital signs: Vital Signs Temp 98.4 F 01/22/22 08:00 Pulse 54 L 01/22/22 08:00 Resp 16 01/22/22 08:00 BP 128/73 01/22/22 08:00 Pulse Ox 99 01/22/22 08:00 FiO2 Intake & Output 01/21/22 01/22/22 01/22/22 18:59 06:59 18:59 Intake Total 236 1300 Output Total 550 625 Balance -314 675 Intake: Intake, IV Titration 900 Amount Sodium Chloride 0.9% 1, 900 000 ml @ 75 mls/hr IV . [id number] [facility] Rx#:[id number] Oral 236 400 Output: Urine 550 625 Other: Voiding Method Urinal Urinal # Voids 4 # Bowel Movements 1 - Labs CBC & Chem 7: 01/19/22 08:37 01/19/22 08:37
[2022-01-22 12:33] VITALS: BMI 27.1
[2022-01-22] MEDS: CYANOCOBALAMIN 500 MCG TAB PO SCH (12:55)
--- NOTE | 2022-01-22 15:20 | PN ---
PROGRESS NOTE SUBJECTIVE: This is a 71-year-old gentleman with a known atrial fibrillation, a patient of Dr. Conley who has a Watchman procedure, previous stroke with hemorrhagic conversion. He is doing well overall cardiac-lawson. No chest pain or shortness of breath. He has some bradycardia, already has a loop recorder. He has variable heart rate, but rhythm is atrial fib. OBJECTIVE: VITALS: Stable. HEART: S1, S2 with irregular rhythm noted, short systolic murmur noted. LUNGS: Reveal diminished air entry. ABDOMEN: Exam unchanged. LOWER EXTREMITIES: Exam unchanged. His EEG apparently was negative. This gentleman has seizure disorder, atrial fib, previous stroke with hemorrhagic conversion and Watchman procedure. He is not on any rate lowering agents at this time. We will continue to watch the heart rate. His orthostatic changes have also improved. Prognosis remains guarded. MMODL / IJN: [id number] /
[2022-01-22] MEDS: SODIUM CHLORIDE 0.9% 1,000 ML IV SCH (19:52)
[2022-01-22] MEDS: ATORVASTATIN 40 MG TAB PO SCH (19:56)
[2022-01-22] MEDS: ASPIRIN 81 MG PO SCH (19:56)
[2022-01-23] MEDS: SODIUM CHLORIDE 0.9% 1,000 ML IV SCH ×2 (00:07→13:31)
[2022-01-23] MEDS: HEPARIN SODIUM,PORCINE/PF 5,000 UNIT/0.5 ML SYRINGE SQ SCH ×3 (00:10→17:29)
[2022-01-23] MEDS: MIDODRINE 5 MG TAB PO SCH ×3 (06:50→17:34)
[2022-01-23 08:47] LABS: ALT 19 U/L (4-49); AST 23 U/L (17-59); African American GFR (CKD) >90 (>60 ml/min/1.73 sqM); Albumin 2.3 g/dL (3.5-5.0); Alkaline Phosphatase 62 U/L (38-126); Anion Gap 7 mmol/L; Blood Urea Nitrogen 6 mg/dL (9-20); Calcium 8.7 mg/dL (8.4-10.2); Carbon Dioxide 26 mmol/L (22-30); Chloride 104 mmol/L (98-107); Glucose 90 mg/dL (74-99); Magnesium 1.6 mg/dL (1.6-2.3); Non-African American GFR(CKD) >90 (>60 ml/min/1.73 sqM); Potassium 3.7 mmol/L (3.5-5.1); Sodium 137 mmol/L (137-145); Total Protein 4.5 g/dL (6.3-8.2)
[2022-01-23 08:52] LABS: Basophils % (A) 0 %; Eosinophils # (A) 0.1 k/uL (0-0.7); Eosinophils % (A) 2 %; HCT 29.7 % (39.0-53.0); HGB 10.1 gm/dL (13.0-17.5); Lymphocytes # (A) 1.6 k/uL (1.0-4.8); Lymphocytes % (A) 23 %; MCHC 33.8 g/dL (31.0-37.0); MCV 103.3 fL (80.0-100.0); Macrocytosis Slight; Mean Platelet Volume 8.7; Monocytes # (A) 0.6 k/uL (0-1.0); Monocytes % (A) 8 %; Neutrophils # (A) 4.5 k/uL (1.3-7.7); Neutrophils % (A) 65 %; Platelet Count 116 k/uL (150-450); RBC 2.88 m/uL (4.30-5.90); RDW 14.4 % (11.5-15.5)
[2022-01-23] MEDS: PANTOPRAZOLE 40 MG TABLET PO SCH (08:53)
[2022-01-23] MEDS: levETIRAcetam 500 MG TAB PO SCH ×2 (08:53→20:12)
[2022-01-23] MEDS: FLUDROCORTISONE 0.1 MG TAB PO SCH (08:53)
[2022-01-23] MEDS: DIVALPROEX 500 MG TABLET.DR PO SCH ×3 (08:53→20:12)
[2022-01-23 10:01] LABS: T4, Free (Free Thyroxine) 2.03 ng/dL (0.78-2.19)
--- NOTE | 2022-01-23 12:12 | P.PN ---
Subjective Progress Note Date: 01/23/22 HISTORY OF PRESENT ILLNESS: Patient examined this morning at the bedside. Patient denies chest pain or pressure. He denies shortness of breath. Vital signs are stable. Telemetry r eveals sinus pericardia PHYSICAL EXAM: VITAL SIGNS: Reviewed. GENERAL: Well-developed in no acute distress. NECK: Supple. No JVD or thyromegaly LUNGS: Respirations even and unlabored. Lungs essentially clear to auscultation bilaterally. HEART: Regular rate and rhythm. S1 and S2 heard. EXTREMITIES: Normal range of motion. No clubbing or cyanosis. Peripheral pulses intact. No lower extremity edema ASSESSMENT: Syncopal episodes, likely related to orthostatic hypotension Orthostatic hypotension Sinus bradycardia CVA with hemorrhagic conversion in 2017 Hx of seizures Hyperlipidemia Hypertension Hx of atrial flutter with previous ablation Paroxysmal atrial fibrillation with previous watchman device in 2020 Nonischemic cardiomyopathy with improved EF Normal coronary arteries by cardiac catheterization in 03/2021 Loop recorder implantation Small ASD previously noted and related to Watchman implant PLAN: Continue telemetry monitoring Continue current cardiac medications Patient is currently stable from a cardiac perspective Nurse practitioner note has been reviewed by physician. Signing provider agrees with the documented findings, assessment, and plan of care. Objective - Vital Signs Vital signs: Vital Signs Temp 98.0 F 01/23/22 08:00 Pulse 48 L 01/23/22 08:00 Resp 18 01/23/22 08:00 BP 117/76 01/23/22 08:00 Pulse Ox 98 01/23/22 08:00 FiO2 Intake & Output 01/22/22 01/23/22 01/23/22 18:59 06:59 18:59 Intake Total 480 0 Output Total 800 100 Balance 480 -800 -100 Weight 90.718 kg Intake: Oral 480 0 Output: Urine 800 100 Other: Voiding Method Urinal Urinal Urinal - Labs CBC & Chem 7: 01/23/22 08:01 01/23/22 08:01 Labs: Abnormal Lab Results - Last 24 Hours (Table) 01/23/22 01/23/22 01/23/22 Range/Units 08:01 08:01 08:01 RBC 2.88 L (4.30-5.90) m/uL Hgb 10.1 L (13.0-17.5) gm/dL Hct 29.7 L (39.0-53.0) % MCV 103.3 H (80.0-100.0) fL Plt Count 116 L (150-450) k/uL BUN 6 L (9-20) mg/dL Total Protein 4.5 L (6.3-8.2) g/dL Albumin 2.3 L (3.5-5.0) g/dL Folate 2.30 L (4.40-31.00) ng/mL TSH 5.390 H (0.465-4.680) mIU/L
--- NOTE | 2022-01-23 13:05 | P.DS ---
Providers Date of admission: 01/18/22 13:14 Expected date of discharge: 01/23/22 Attending physician: Saima Esparza, DO Consults: 01/18/22 13:14 Consult Physician Routine Consulting Provider: El Valdez Consult Reason/Comments: syncope Do you want consulting provider notified?: Yes 01/18/22 13:20 Consult Physician Urgent Consulting Provider: Salvador Reyes Consult Reason/Comments: seizure Do you want consulting provider notified?: Yes Primary care physician: [facility] Course: Admitting diagnoses: Syncope Discharge diagnoses: Syncope Orthostatic hypotension Nonischemic cardiomyopathy compensated Atrial fibrillation status post watchman device Dyslipidemia Hospital course: Patient is a 71-year-old male with past medical history of CVA with hemorrhagic transformation, seizure disorder, atrial fibrillation status post watchman device, nonischemic cardiomyopathy, dyslipidemia presenting from home with concerns of syncope and fall. Per , patient was recently in the hospital with bradycardia and orthostatic hypotension. He had falls below to his previous hospitalization. There were changes made to his medications during his last hospitalization. However, over the last 1 week patient has been having shaking spells each time he stands up, then has syncope and fall. There is no post ictal or loss of bladder or bowel control. It only happens when he stands up. He denies any chest pain, palpitations, shortness of breath, lightheadedness, abdominal pain, urinary complaints. He does claim that he has 4 bowel movements daily but they are formed. is concerned if he is having seizures. In the ED, his vital signs were within normal limits, but did have positive orthostatic vitals when going from supine to sitting. He was unable to stand. Physical exam General: [non toxic], [no distress], [appears at stated age] Derm: [warm], [dry] Head: [atraumatic], [normocephalic], [symmetric] Eyes: [EOMI], [no lid lag], [anicteric sclera] Mouth: [no lip lesion], [mucus membranes moist] Cardiovascular: [S1S2 reg], [no murmur], [positive posterior tibial pulse bilateral], Lungs: [CTA bilateral], [no rhonchi, no rales] , [no accessory muscle use] Abdominal: [soft], [ nontender to palpation], [no guarding], [no appreciable organomegaly] Ext: [no gross muscle atrophy], [no edema], [no contractures] Neuro: [ CN II-XI grossly intact], [no focal neuro deficits] Psych: [Alert], [oriented], [appropriate affect] Medical course: Syncope and fall likely due to orthostatic hypotension Seizure history -IV fluids provided -Neurology consult consult to - restarted home seizure medications -EEG revealed background slowing -Cardiology consulted - device interrogated, patient in sinus bradycardia, hold lasix, midodrine, MINAL hose -Increased the dose of Midodrine, and added fludrocortisone -PT/OT Nonischemic cardiomyopathy -Last LVEF 55% -will hold Lasix given orthostatic hypertension -Cardiology consult Atrial fibrillation -Status post watchman device History of CVA with mild expressive aphasia Hypokalemia -resolved Dyslipidemia -Continue home meds Code status: Full code Disposition: SNF Activity: As tolerated Diet: Cardiac Condition: Fair Follow-up with PCP in 3-7 days Follow-up with neurology in 2 weeks Follow-up with cardiology in 2 weeks Patient Condition at Discharge: Fair Plan - Discharge Summary Discharge Rx Participant: Yes New Discharge Prescriptions: New Fludrocortisone [Florinef] 0.05 mg PO DAILY #30 tab Midodrine [ProAmatine] 10 mg PO AC-TID #90 tab Continue Divalproex Sodium [Depakote] 500 mg PO TID@0800,1399,1999 Pantoprazole [Protonix] 40 mg PO DAILY@0800 Atorvastatin Calcium [Lipitor] 40 mg PO HS@2000 Aspirin EC [Ecotrin Low Dose] 81 mg PO HS@1999 levETIRAcetam [Keppra] 1,000 mg PO BID@0800,1999 Cyanocobalamin (Vitamin B-12) [Vitamin B-12] 1,000 mcg PO DAILY@1400 levETIRAcetam [Keppra] 500 mg PO BID@0800,1999 Clonazepam 0.5mg Odt Tab 0.5 mg PO DAILY PRN PRN Reason: Seizures Discontinued Potassium Chloride [K-Tab ER] 10 meq PO DAILY@0800 Furosemide [Lasix] 40 mg PO DAILY@0800 Discharge Medication List Divalproex Sodium [Depakote] 500 mg PO TID@0800,1400,199904/05/21 [History] Pantoprazole [Protonix] 40 mg PO DAILY@0800 04/05/21 [History] levETIRAcetam [Keppra] 1,000 mg PO BID@799,199904/05/21 [History] Aspirin EC [Ecotrin Low Dose] 81 mg PO HS@199912/25/21 [History] Atorvastatin Calcium [Lipitor] 40 mg PO HS@199912/25/21 [History] Clonazepam 0.5mg Odt Tab 0.5 mg PO DAILY PRN 12/25/21 [History] Cyanocobalamin (Vitamin B-12) [Vitamin B-12] 1,000 mcg PO DAILY@1400 12/25/21 [History] levETIRAcetam [Keppra] 500 mg PO BID@799,199912/25/21 [History] Fludrocortisone [Florinef] 0.05 mg PO DAILY #30 tab 01/23/22 [Rx] Midodrine [ProAmatine] 10 mg PO AC-TID #90 tab 01/23/22 [Rx] Follow up Appointment(s)/Referral(s): Kenneth Conley DO [STAFF PHYSICIAN] - 1 Week [facility], [NON-STAFF] - 1-2 Days (home care will call to set up appointment. Any questions please call agency) None,Stated [REFERRING] - 1-2 days Activity/Diet/Wound Care/Special Instructions: NURSE If patient d/c on weekend there is a wheelchair Rx and notes to be faxed to [facility] and they will deliver to patients home or hospital. Discharge Disposition: TRANSFER TO SNF/ECF
[2022-01-23] MEDS: CYANOCOBALAMIN 500 MCG TAB PO SCH (13:30)
[2022-01-23] MEDS: ASPIRIN 81 MG PO SCH (20:12)
[2022-01-23] MEDS: ATORVASTATIN 40 MG TAB PO SCH (20:13)
[2022-01-23 21:27] LABS: % Iron Saturation 44.21 (15.00-50.00); Iron 98 ug/dL (65-175); Total Iron Binding Capacity 221 ug/dL (228-460)
[2022-01-24] MEDS: HEPARIN SODIUM,PORCINE/PF 5,000 UNIT/0.5 ML SYRINGE SQ SCH ×3 (00:08→17:46)
[2022-01-24] MEDS: SODIUM CHLORIDE 0.9% 1,000 ML IV SCH (04:25)
[2022-01-24] MEDS: MIDODRINE 5 MG TAB PO SCH ×3 (06:38→17:46)
[2022-01-24 08:49] VITALS: RESP 18
[2022-01-24] MEDS: FLUDROCORTISONE 0.1 MG TAB PO SCH (08:55)
[2022-01-24] MEDS: levETIRAcetam 500 MG TAB PO SCH (08:56)
[2022-01-24] MEDS: DIVALPROEX 500 MG TABLET.DR PO SCH ×2 (08:56→15:11)
[2022-01-24] MEDS: PANTOPRAZOLE 40 MG TABLET PO SCH (08:56)
[2022-01-24] MEDS ORDERED: FOLIC ACID 1 MG TAB PO SCH (09:00)
--- NOTE | 2022-01-24 11:21 | P.DS ---
Providers Date of admission: 01/18/22 13:14 Expected date of discharge: 01/24/22 Attending physician: Saima Esparza, DO Consults: 01/18/22 13:14 Consult Physician Routine Consulting Provider: [place] Consult Reason/Comments: syncope Do you want consulting provider notified?: Yes 01/18/22 13:20 Consult Physician Urgent Consulting Provider: Salvador Reyse Consult Reason/Comments: seizure Do you want consulting provider notified?: Yes Primary care physician: Azam [facility] Course: Admitting diagnoses: Syncope Discharge diagnoses: Syncope Orthostatic hypotension Nonischemic cardiomyopathy compensated Atrial fibrillation status post watchman device Dyslipidemia Folic acid deficiency Hospital course: Patient is a 71-year-old male with past medical history of CVA with hemorrhagic transformation, seizure disorder, atrial fibrillation status post watchman device, nonischemic cardiomyopathy, dyslipidemia presenting from home with concerns of syncope and fall. Per , patient was recently in the hospital with bradycardia and orthostatic hypotension. He had falls below to his previous hospitalization. There were changes made to his medications during his last hospitalization. However, over the last 1 week patient has been having shaking spells each time he stands up, then has syncope and fall. There is no post ictal or loss of bladder or bowel control. It only happens when he stands up. He denies any chest pain, palpitations, shortness of breath, lightheadedness, abdominal pain, urinary complaints. He does claim that he has 4 bowel movements daily but they are formed. is concerned if he is having seizures. In the ED, his vital signs were within normal limits, but did have positive orthostatic vitals when going from supine to sitting. He was unable to stand. Physical exam General: [non toxic], [no distress], [appears at stated age] Derm: [warm], [dry] Head: [atraumatic], [normocephalic], [symmetric] Eyes: [EOMI], [no lid lag], [anicteric sclera] Mouth: [no lip lesion], [mucus membranes moist] Cardiovascular: [S1S2 reg], [no murmur], [positive posterior tibial pulse bilateral], Lungs: [CTA bilateral], [no rhonchi, no rales] , [no accessory muscle use] Abdominal: [soft], [ nontender to palpation], [no guarding], [no appreciable organomegaly] Ext: [no gross muscle atrophy], [no edema], [no contractures] Neuro: [ CN II-XI grossly intact], [no focal neuro deficits] Psych: [Alert], [oriented], [appropriate affect] Medical course: Syncope and fall likely due to orthostatic hypotension Seizure history -IV fluids provided -Neurology consulted - restarted home seizure medications Patient's Keppra blood levels were elevated however neurology did not want to decrease medications due patient's abnormal EEG Patient is recommended to follow-up with his own neurologist patient for further recommendations -EEG revealed background slowing -Cardiology consulted - device interrogated, patient in sinus bradycardia -Increased the dose of Midodrine, and added fludrocortisone -PT/OT Nonischemic cardiomyopathy -Last LVEF 55% -will hold Lasix given orthostatic hypertension -Cardiology consult Atrial fibrillation -Status post watchman device History of CVA with mild expressive aphasia Hypokalemia -resolved Dyslipidemia -Continue home meds Code status: Full code Disposition: SNF Activity: As tolerated Diet: Cardiac Condition: Fair Follow-up with PCP in 3-7 days Follow-up with neurology in 2 weeks Follow-up with cardiology in 2 weeks Patient Condition at Discharge: Fair Plan - Discharge Summary Discharge Rx Participant: Yes New Discharge Prescriptions: New Fludrocortisone [Florinef] 0.05 mg PO DAILY #30 tab Folic Acid 1 mg PO DAILY #30 tab Midodrine [ProAmatine] 10 mg PO AC-TID #90 tab Continue Divalproex Sodium [Depakote] 500 mg PO TID@0800,1400,1999 Pantoprazole [Protonix] 40 mg PO DAILY@0800 Atorvastatin Calcium [Lipitor] 40 mg PO HS@2000 Aspirin EC [Ecotrin Low Dose] 81 mg PO HS@2000 levETIRAcetam [Keppra] 1,000 mg PO BID@0800,2000 Cyanocobalamin (Vitamin B-12) [Vitamin B-12] 1,000 mcg PO DAILY@1400 levETIRAcetam [Keppra] 500 mg PO BID@0800,2000 Clonazepam 0.5mg Odt Tab 0.5 mg PO DAILY PRN PRN Reason: Seizures Discontinued Potassium Chloride [K-Tab ER] 10 meq PO DAILY@0800 Furosemide [Lasix] 40 mg PO DAILY@0800 Discharge Medication List Divalproex Sodium [Depakote] 500 mg PO TID@0800,1400,199904/05/21 [History] Pantoprazole [Protonix] 40 mg PO DAILY@0800 04/05/21 [History] levETIRAcetam [Keppra] 1,000 mg PO BID@0800,199904/05/21 [History] Aspirin EC [Ecotrin Low Dose] 81 mg PO HS@199912/25/21 [History] Atorvastatin Calcium [Lipitor] 40 mg PO HS@199912/25/21 [History] Clonazepam 0.5mg Odt Tab 0.5 mg PO DAILY PRN 12/25/21 [History] Cyanocobalamin (Vitamin B-12) [Vitamin B-12] 1,000 mcg PO DAILY@1400 12/25/21 [History] levETIRAcetam [Keppra] 500 mg PO BID@0800,199912/25/21 [History] Fludrocortisone [Florinef] 0.05 mg PO DAILY #30 tab 01/23/22 [Rx] Midodrine [ProAmatine] 10 mg PO AC-TID #90 tab 01/23/22 [Rx] Folic Acid 1 mg PO DAILY #30 tab 01/24/22 [Rx] Follow up Appointment(s)/Referral(s): Kenneth Conley DO [STAFF PHYSICIAN] - 1 Week [facility], [NON-STAFF] - 1-2 Days (home care will call to set up appointment. Any questions please call agency) None,Stated [REFERRING] - 1-2 days Activity/Diet/Wound Care/Special Instructions: NURSE If patient d/c on weekend there is a wheelchair Rx and notes to be faxed to [facility] and they will deliver to patients home or hospital. Discharge Disposition: TRANSFER TO SNF/ECF
[2022-01-24 12:03] VITALS: BP 114/64; PULSE 48; TEMP 97.8
[2022-01-24] MEDS: CYANOCOBALAMIN 500 MCG TAB PO SCH (15:11)
== END 2022-01-24 19:00 | DRG 312 ==
LOC: SUPCPDRO 10:52 → EC 10:52 → 3SCARD 13:14
PROVIDERS: ADMIT Internal Medicine; ATTEND Internal Medicine
DX: I95.1 Orthostatic hypotension (principal); I42.8 Other cardiomyopathies; I48.0 Paroxysmal atrial fibrillation; E53.8 Deficiency of other specified B group vitamins; E78.5 Hyperlipidemia, unspecified; E87.6 Hypokalemia; G40.909 Epilepsy, unspecified, not intractable, without status epilepticus; K21.9 Gastro-esophageal reflux disease without esophagitis; I10 Essential (primary) hypertension; I49.3 Ventricular premature depolarization; I44.30 Unspecified atrioventricular block; I69.220 Aphasia following other nontraumatic intracranial hemorrhage; I69.222 Dysarthria following other nontraumatic intracranial hemorrhage; Z87.891 Personal history of nicotine dependence; J44.9 Chronic obstructive pulmonary disease, unspecified; R29.6 Repeated falls; Z91.81 History of falling; R32 Unspecified urinary incontinence; Z79.899 Other long term (current) drug therapy; Z82.49 Family history of ischemic heart disease and other diseases of the circulatory system; Z86.711 Personal history of pulmonary embolism; Z86.718 Personal history of other venous thrombosis and embolism; Z95.818 Presence of other cardiac implants and grafts
CPT/HCPCS: 36415; 70450; 71046; 80053; 80164; 80177; 82607; 82746; 83540; 83550; 83605; 83735; 84439; 84443; 84484; 85025; 85610; 85730; 87635; 93005; 94760; 95816

== ENCOUNTER 2022-03-16 09:32 | Emergency (ER) | payer MEDICARE ==
[2022-03-16 09:40] VITALS: RESP 18; TEMP 98.6
--- NOTE | 2022-03-16 09:56 | ED ---
General Adult HPI - General Chief complaint: Weakness Stated complaint: Weakness,UTI Time Seen by Provider: 03/16/22 09:34 Source: EMS Mode of arrival: EMS Limitations: no limitations - History of Present Illness Initial comments: Dictation was produced using [email or web address] dictation software. please excuse any grammatical, word or spelling errors. 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 Patient presents today for weakness. He had a home health care visiting nurse that felt that he was more weak than usual. Patient denies any such complaints. He states that he feels at base line. Patient has history of stroke with residual right-sided deficits. Patient denies any pain. Patient is however a limited historian secondary to baseline mental status. The ROS documented in this emergency department record has been reviewed and confirmed by me. Those systems with pertinent positive or negative responses have been documented in the HPI. All other systems are other negative and/or noncontributory. PHYSICAL EXAM: General Impression: Alert and oriented x3, not in acute distress HEENT: Normocephalic atraumatic, extra-ocular movements intact, pupils equal and reactive to light bilaterally, mucous membranes moist. Cardiovascular: Heart regular rate and rhythm Chest: Able to complete full sentences, no retractions, no tachypnea Abdomen: abdomen soft, non-tender, non-distended, no organomegaly Musculoskeletal: Pulses present and equal in all extremities, no peripheral edema Motor: no focal deficits noted Neurological: Right-sided facial droop, no focal motor or sensory deficits noted Skin: Intact with no visualized rashes Psych: Normal affect and mood ED course: 71 Old male presents emergency department for generalized weakness. Patient has significant history. Vital signs upon arrival are within acceptable limits. Chart review was performed Laboratory evaluation obtained. CBC, coag panel, metabolic panel is unremarkable. Abdominal labs negative. Urinalysis negative. Viral testing is positive for COVID-19. Computed tomography scan of brain is negative for any acute processes. Radiology suggests normal pressure hydrocephalus or patient not have any obvious symptoms of NPH. Chest x-ray ordered Patient reevaluated at bedside at 11:45 AM. He is not hypoxic not showing any signs or rest or distress. Chest x-ray is unremarkable. Patient will be discharge. Advised follow-up with primary care doctor. My EKG interpretation: Ventricular rate 55, sinus rhythm, QS 85, QTC 303. No IA prolongation, no QTC prolongation, no ST or T-wave changes noted. s. Overall, this EKG is unremarkable Critical Care: no Critical Care time: n/a - Related Data Home Medications Medication Instructions Recorded Confirmed Divalproex Sodium [Depakote] 500 mg PO TID@0800,1400,199904/05/21 01/18/22 Pantoprazole [Protonix] 40 mg PO DAILY@0800 04/05/21 01/18/22 levETIRAcetam [Keppra] 1,000 mg PO BID@0800,199904/05/21 01/18/22 Aspirin EC [Ecotrin Low Dose] 81 mg PO HS@199912/25/21 01/18/22 Atorvastatin Calcium [Lipitor] 40 mg PO HS@199912/25/21 01/18/22 Clonazepam 0.5mg Odt Tab 0.5 mg PO DAILY PRN 12/25/21 01/18/22 Cyanocobalamin (Vitamin B-12) 1,000 mcg PO DAILY@1400 12/25/21 01/18/22 [Vitamin B-12] levETIRAcetam [Keppra] 500 mg PO BID@0800,199912/25/21 01/18/22 Previous Rx's Medication Instructions Recorded Fludrocortisone [Florinef] 0.05 mg PO DAILY #30 tab 01/23/22 Midodrine [ProAmatine] 10 mg PO AC-TID #90 tab 01/23/22 Folic Acid 1 mg PO DAILY #30 tab 01/24/22 Molnupiravir [Lagevrio (Eua)] 800 mg PO BID 5 Days #40 cap 03/16/22 Allergies Allergy/AdvReac Type Severity Reaction Status Date / Time No Known Allergies Allergy Verified 01/18/22 12:51 Review of Systems ROS Statement: Those systems with pertinent positive or pertinent negative responses have been documented in the HPI. ROS Other: All systems not noted in ROS Statement are negative. 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, DVT RT leg and RT PE 2017, uses a cane, last seizure "one week ago" History of Any Multi-Drug Resistant Organisms: None Reported Past Surgical History: Back Surgery, Joint Replacement Additional Past Surgical History / Comment(s): b/l knee replacements Past Anesthesia/Blood Transfusion Reactions: No Reported Reaction Past Psychological History: No Psychological Hx Reported Smoking Status: Former smoker Past Alcohol Use History: None Reported Past Drug Use History: None Reported - Past Family History Mother Family Medical History: Myocardial Infarction ([place]) General Exam Limitations: no limitations Course Vital Signs 03/16/22 03/16/22 09:35 10:50 Temperature 98.6 F Pulse Rate 60 59 L Respiratory 18 18 Rate Blood Pressure 130/91 124/57 O2 Sat by Pulse 96 97 Oximetry Medical Decision Making - Lab Data Result diagrams: 03/16/22 09:50 03/16/22 09:50 Lab Results 03/16/22 03/16/22 03/16/22 Range/Units 09:50 09:50 09:50 WBC 6.1 (3.8-10.6) k/uL RBC 3.28 L (4.30-5.90) m/uL Hgb 11.1 L (13.0-17.5) gm/dL Hct 32.5 L (39.0-53.0) % MCV 99.0 (80.0-100.0) fL MCH 33.7 (25.0-35.0) pg MCHC 34.1 (31.0-37.0) g/dL RDW 13.7 (11.5-15.5) % Plt Count 149 L (150-450) k/uL MPV 9.6 Neutrophils % 68 % Lymphocytes % 12 % Monocytes % 16 % Eosinophils % 1 % Basophils % 1 % Neutrophils # 4.2 (1.3-7.7) k/uL Lymphocytes # 0.7 L (1.0-4.8) k/uL Monocytes # 1.0 (0-1.0) k/uL Eosinophils # 0.1 (0-0.7) k/uL Basophils # 0.0 (0-0.2) k/uL Manual Slide Review Performed Poikilocytosis (manual Present Crenated Cell Present PT 11.4 (9.0-12.0) sec INR 1.1 (<1.2) APTT 26.1 (22.0-30.0) sec Sodium 138 (137-145) mmol/L Potassium 4.2 (3.5-5.1) mmol/L Chloride 107 (98-107) mmol/L Carbon Dioxide 30 (22-30) mmol/L Anion Gap 1 mmol/L BUN 12 (9-20) mg/dL Creatinine 0.80 (0.66-1.25) mg/dL Est GFR (CKD-EPI)AfAm >90 (>60 ml/min/1.73 sqM) Est GFR (CKD-EPI)NonAf 90 (>60 ml/min/1.73 sqM) Glucose 87 (74-99) mg/dL Plasma Lactic Acid Richi (0.7-2.0) mmol/L Calcium 8.9 (8.4-10.2) mg/dL Magnesium 1.6 (1.6-2.3) mg/dL Total Bilirubin 0.9 (0.2-1.3) mg/dL AST 42 (17-59) U/L ALT 19 (4-49) U/L Alkaline Phosphatase 43 (38-126) U/L Troponin I (0.000-0.034) ng/mL Total Protein 5.3 L (6.3-8.2) g/dL Albumin 2.9 L (3.5-5.0) g/dL TSH 2.770 (0.465-4.680) mIU/L Urine Color Urine Appearance (Clear) Urine pH (5.0-8.0) Ur Specific [place] (1.001-1.035) Urine Protein (Negative) Urine Glucose (UA) (Negative) Urine Ketones (Negative) Urine Blood (Negative) Urine Nitrite (Negative) Urine Bilirubin (Negative) Urine Urobilinogen (<2.0) mg/dL Ur Leukocyte Esterase (Negative) Urine RBC (0-5) /hpf Urine WBC (0-5) /hpf Ur Squamous Epith Cells (0-4) /hpf Hyaline Casts (0-2) /lpf Urine Mucus (None) /hpf Coronavirus (PCR) (Not Detectd) Influenza Type A RNA (Not Detectd) Influenza Type B (PCR) (Not Detectd) RSV (PCR) (Negative) 03/16/22 03/16/22 03/16/22 Range/Units 09:50 09:50 09:50 WBC (3.8-10.6) k/uL RBC (4.30-5.90) m/uL Hgb (13.0-17.5) gm/dL Hct (39.0-53.0) % MCV (80.0-100.0) fL MCH (25.0-35.0) pg MCHC (31.0-37.0) g/dL RDW (11.5-15.5) % Plt Count (150-450) k/uL MPV Neutrophils % % Lymphocytes % % Monocytes % % Eosinophils % % Basophils % % Neutrophils # (1.3-7.7) k/uL Lymphocytes # (1.0-4.8) k/uL Monocytes # (0-1.0) k/uL Eosinophils # (0-0.7) k/uL Basophils # (0-0.2) k/uL Manual Slide Review Poikilocytosis (manual Crenated Cell PT (9.0-12.0) sec INR (<1.2) APTT (22.0-30.0) sec Sodium (137-145) mmol/L Potassium (3.5-5.1) mmol/L Chloride (98-107) mmol/L Carbon Dioxide (22-30) mmol/L Anion Gap mmol/L BUN (9-20) mg/dL Creatinine (0.66-1.25) mg/dL Est GFR (CKD-EPI)AfAm (>60 ml/min/1.73 sqM) Est GFR (CKD-EPI)NonAf (>60 ml/min/1.73 sqM) Glucose (74-99) mg/dL Plasma Lactic Acid Richi 1.0 (0.7-2.0) mmol/L Calcium (8.4-10.2) mg/dL Magnesium (1.6-2.3) mg/dL Total Bilirubin (0.2-1.3) mg/dL AST (17-59) U/L ALT (4-49) U/L Alkaline Phosphatase (38-126) U/L Troponin I <0.012 (0.000-0.034) ng/mL Total Protein (6.3-8.2) g/dL Albumin (3.5-5.0) g/dL TSH (0.465-4.680) mIU/L Urine Color Yellow Urine Appearance Clear (Clear) Urine pH 8.5 H (5.0-8.0) Ur Specific [place] 1.028 (1.001-1.035) Urine Protein 1+ H (Negative) Urine Glucose (UA) Negative (Negative) Urine Ketones 1+ H (Negative) Urine Blood Negative (Negative) Urine Nitrite Negative (Negative) Urine Bilirubin Negative (Negative) Urine Urobilinogen 6.0 (<2.0) mg/dL Ur Leukocyte Esterase Negative (Negative) Urine RBC <1 (0-5) /hpf Urine WBC 2 (0-5) /hpf Ur Squamous Epith Cells <1 (0-4) /hpf Hyaline Casts 18 H (0-2) /lpf Urine Mucus Occasional H (None) /hpf Coronavirus (PCR) (Not Detectd) Influenza Type A RNA (Not Detectd) Influenza Type B (PCR) (Not Detectd) RSV (PCR) (Negative) 03/16/22 03/16/22 Range/Units 10:40 10:51 WBC (3.8-10.6) k/uL RBC (4.30-5.90) m/uL Hgb (13.0-17.5) gm/dL Hct (39.0-53.0) % MCV (80.0-100.0) fL MCH (25.0-35.0) pg MCHC (31.0-37.0) g/dL RDW (11.5-15.5) % Plt Count (150-450) k/uL MPV Neutrophils % % Lymphocytes % % Monocytes % % Eosinophils % % Basophils % % Neutrophils # (1.3-7.7) k/uL Lymphocytes # (1.0-4.8) k/uL Monocytes # (0-1.0) k/uL Eosinophils # (0-0.7) k/uL Basophils # (0-0.2) k/uL Manual Slide Review Poikilocytosis (manual Crenated Cell PT (9.0-12.0) sec INR (<1.2) APTT (22.0-30.0) sec Sodium (137-145) mmol/L Potassium (3.5-5.1) mmol/L Chloride (98-107) mmol/L Carbon Dioxide (22-30) mmol/L Anion Gap mmol/L BUN (9-20) mg/dL Creatinine (0.66-1.25) mg/dL Est GFR (CKD-EPI)AfAm (>60 ml/min/1.73 sqM) Est GFR (CKD-EPI)NonAf (>60 ml/min/1.73 sqM) Glucose (74-99) mg/dL Plasma Lactic Acid Richi (0.7-2.0) mmol/L Calcium (8.4-10.2) mg/dL Magnesium (1.6-2.3) mg/dL Total Bilirubin (0.2-1.3) mg/dL AST (17-59) U/L ALT (4-49) U/L Alkaline Phosphatase (38-126) U/L Troponin I (0.000-0.034) ng/mL Total Protein (6.3-8.2) g/dL Albumin (3.5-5.0) g/dL TSH (0.465-4.680) mIU/L Urine Color Urine Appearance (Clear) Urine pH (5.0-8.0) Ur Specific [place] (1.001-1.035) Urine Protein (Negative) Urine Glucose (UA) (Negative) Urine Ketones (Negative) Urine Blood (Negative) Urine Nitrite (Negative) Urine Bilirubin (Negative) Urine Urobilinogen (<2.0) mg/dL Ur Leukocyte Esterase (Negative) Urine RBC (0-5) /hpf Urine WBC (0-5) /hpf Ur Squamous Epith Cells (0-4) /hpf Hyaline Casts (0-2) /lpf Urine Mucus (None) /hpf Coronavirus (PCR) Detected A (Not Detectd) Influenza Type A RNA Not Detected (Not Detectd) Influenza Type B (PCR) Not Detected (Not Detectd) RSV (PCR) Negative (Negative) Disposition Clinical Impression: COVID-19 Disposition: HOME SELF-CARE Condition: Good Instructions (If sedation given, give patient instructions): Coronavirus Disease 2019 (COVID-19) Prescriptions: Molnupiravir [Lagevrio (Eua)] 800 mg PO BID 5 Days #40 cap Is patient prescribed a controlled substance at d/c from ED?: No Referrals: None,Stated [REFERRING] - 1-2 days Time of Disposition: 12:21
[2022-03-16 10:11] LABS: Basophils % (A) 1 %; Eosinophils # (A) 0.1 k/uL (0-0.7); Eosinophils % (A) 1 %; HCT 32.5 % (39.0-53.0); HGB 11.1 gm/dL (13.0-17.5); Lymphocytes # (A) 0.7 k/uL (1.0-4.8); Lymphocytes % (A) 12 %; MCH 33.7 pg (25.0-35.0); MCHC 34.1 g/dL (31.0-37.0); Mean Platelet Volume 9.6; Monocytes % (A) 16 %; Neutrophils # (A) 4.2 k/uL (1.3-7.7); Neutrophils % (A) 68 %; Platelet Count 149 k/uL (150-450); RBC 3.28 m/uL (4.30-5.90); RDW 13.7 % (11.5-15.5); WBC 6.1 k/uL (3.8-10.6)
[2022-03-16 10:22] LABS: INR 1.1 (<1.2); Partial Thromboplastin Time 26.1 sec (22.0-30.0); Prothrombin Time 11.4 sec (9.0-12.0)
--- NOTE | 2022-03-16 10:23 | CT ---
EXAMINATION TYPE: CT brain wo con DATE OF EXAM: 03/16/2022 COMPARISON: 01/18/2022 HISTORY: 71-year-old male weakness, confusion, ams TECHNIQUE: Examination was done in axial plane without intravenous contrast. Coronal and sagittal r econstructions performed. CT DLP: 1099.4 mGycm Automated exposure control for dose reduction was used. FINDINGS: There is no evidence of acute intracranial hemorrhage, acute ischemic changes, mass, mass-effect, or extra-axial fluid collection. There is no effacement of cerebral sulci or basal subarachnoid cister ns is mild hydrocephalus, Elieser's ratio calculated 0.35, relatively similar to prior exam. There is no midline shift. [place]-white matter distinction is preserved. Area of encephalomalacia lateral left frontal lobe with confluent underlying white matter hypodensity greatest in the left frontal lobe but in the bilateral periventricular regions similar prior exam. D eep white matter encephalomalacia anterior left basal ganglia. Mild cerebral cortical volume loss. Rightward nasal septal deviation. Nasal sinuses and mastoid air cells well pneumatized. The globes are intact. IMPRESSION: 1. Similar mild hydrocephalus probably on an ex vacuo basis from central cerebral atrophy. Correlate for possible component of NPH. 2. Old lateral left frontal lobe infarct with encephalomalacia. No acute intracranial mammography. 3. Confluent white matter hypodensities left greater than right cerebral hemispheres likely chronic s mall vessel ischemic disease.
[2022-03-16 10:24] LABS: ALT 19 U/L (4-49); AST 42 U/L (17-59); African American GFR (CKD) >90 (>60 ml/min/1.73 sqM); Albumin 2.9 g/dL (3.5-5.0); Alkaline Phosphatase 43 U/L (38-126); Anion Gap 1 mmol/L; Blood Urea Nitrogen 12 mg/dL (9-20); Calcium 8.9 mg/dL (8.4-10.2); Carbon Dioxide 30 mmol/L (22-30); Chloride 107 mmol/L (98-107); Glucose 87 mg/dL (74-99); Magnesium 1.6 mg/dL (1.6-2.3); Non-African American GFR(CKD) 90 (>60 ml/min/1.73 sqM); Sodium 138 mmol/L (137-145); Total Bilirubin 0.9 mg/dL (0.2-1.3); Total Protein 5.3 g/dL (6.3-8.2)
[2022-03-16 10:39] LABS: Potassium 4.2 mmol/L (3.5-5.1)
[2022-03-16 11:28] LABS: Crenated RBC Present; Poikilocytosis (M) Present
[2022-03-16 11:34] LABS: Appearance,Urine Clear (Clear); Bilirubin,Urine Negative (Negative); Blood,Urine Negative (Negative); Color,Urine Yellow; Glucose,Urine (UA) Negative (Negative); Hyaline Casts,Urine 18 /lpf (0-2); Ketones,Urine 1+ (Negative); Leukocyte Esterase,Urine Negative (Negative); Mucus,Urine Occasional /hpf; Nitrite,Urine Negative (Negative); PH, Urine 8.5 (5.0-8.0); Protein,Urine 1+ (Negative); RBC,Urine <1 /hpf (0-5); Specific Gravity,Urine 1.028 (1.001-1.035); Squamous Epithelial Cell,Urine <1 /hpf (0-4); WBC,Urine 2 /hpf (0-5)
--- NOTE | 2022-03-16 12:17 | XR ---
EXAMINATION TYPE: XR chest 1V portable DATE OF EXAM: 03/16/2022 12:12 PM COMPARISON: Chest radiographs from 01/18/2022 TECHNIQUE: XR chest 1V portable Portable AP radiograph of the chest. CLINICAL INDICATION:Male, 71 years old with history of covid; FINDINGS: Lungs/Pleura: There is no evidence of pleural effusion, focal consolidation, or pneumothorax. Pulmonary vascularity: Unremarkable. Heart/mediastinum: Cardiomediastinal silhouette is unremarkable. A loop recorder projects over the le ft thorax over the heart. Musculoskeletal: No acute osseous pathology. IMPRESSION: Basilar atelectasis without acute cardiopulmonary disease/process.
[2022-03-16 12:27] VITALS: BP 127/81; PULSE 61
== END 2022-03-16 12:34 | disposition home or self-care (01) ==
LOC: EC 09:32
DX: U07.1 COVID-19 (principal); I48.91 Unspecified atrial fibrillation; Z86.73 Personal history of transient ischemic attack (TIA), and cerebral infarction without residual deficits; Z87.891 Personal history of nicotine dependence; Z86.718 Personal history of other venous thrombosis and embolism; Z86.711 Personal history of pulmonary embolism; Z79.82 Long term (current) use of aspirin
CPT/HCPCS: 36415; 70450; 71045; 80053; 81001; 83605; 83735; 84443; 84484; 85025; 85610; 85730; 87502; 87634; 87635; 93005; 99285

== ENCOUNTER 2022-04-12 07:38 | Emergency (ER) | payer MEDICARE ==
[2022-04-12 07:47] LABS: Glucose,Whole Blood 99 mg/dL (70-110)
[2022-04-12] MEDS ORDERED: SODIUM CHLORIDE 0.9% 1,000 ML IV STA (07:47)
--- NOTE | 2022-04-12 07:50 | ED ---
General Adult HPI - General Stated complaint: hypotension Time Seen by Provider: 04/12/22 07:40 Source: patient, EMS, RN notes reviewed, old records reviewed Mode of arrival: EMS Limitations: no limitations - History of Present Illness Initial comments: Patient is a pleasant 71-year-old male presenting to the emergency Department with reported near syncopal episode. Patient tried to stand up and reportedly fell to the ground. Patient denies head injury. Patient denies losing consciousness. Patient states he does not recall the episode well. Patient states he does have a bad memory and previous stroke. Patient states his speech is normal for him also from previous stroke. Patient poorly does have a history of orthostatic problems in the past. EMS reported blood pressure was 60 and did provide one liter of fluid. - Related Data Home Medications Medication Instructions Recorded Confirmed Divalproex Sodium [Depakote] 500 mg PO TID@0800,1400,199904/05/21 01/18/22 Pantoprazole [Protonix] 40 mg PO DAILY@0800 04/05/21 01/18/22 levETIRAcetam [Keppra] 1,000 mg PO BID@0800,199904/05/21 01/18/22 Aspirin EC [Ecotrin Low Dose] 81 mg PO HS@199912/25/21 01/18/22 Atorvastatin Calcium [Lipitor] 40 mg PO HS@199912/25/21 01/18/22 Clonazepam 0.5mg Odt Tab 0.5 mg PO DAILY PRN 12/25/21 01/18/22 Cyanocobalamin (Vitamin B-12) 1,000 mcg PO DAILY@1400 12/25/21 01/18/22 [Vitamin B-12] levETIRAcetam [Keppra] 500 mg PO BID@0800,199912/25/21 01/18/22 Previous Rx's Medication Instructions Recorded Fludrocortisone [Florinef] 0.05 mg PO DAILY #30 tab 01/23/22 Midodrine [ProAmatine] 10 mg PO AC-TID #90 tab 01/23/22 Folic Acid 1 mg PO DAILY #30 tab 01/24/22 Molnupiravir [Lagevrio (Eua)] 800 mg PO BID 5 Days #40 cap 03/16/22 Allergies Allergy/AdvReac Type Severity Reaction Status Date / Time No Known Allergies Allergy Verified 04/12/22 07:52 Review of Systems ROS Statement: Those systems with pertinent positive or pertinent negative responses have been documented in the HPI. ROS Other: All systems not noted in ROS Statement are negative. Constitutional: Denies: fever Eyes: Denies: eye pain ENT: Denies: ear pain Respiratory: Denies: cough Cardiovascular: Denies: chest pain Endocrine: Denies: fatigue Gastrointestinal: Denies: abdominal pain Genitourinary: Denies: dysuria Musculoskeletal: Denies: back pain Skin: Denies: rash Neurological: Denies: weakness 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, DVT RT leg and RT PE 2017, uses a cane, last seizure "one week ago" History of Any Multi-Drug Resistant Organisms: None Reported Past Surgical History: Back Surgery, Joint Replacement Additional Past Surgical History / Comment(s): b/l knee replacements Past Anesthesia/Blood Transfusion Reactions: No Reported Reaction Past Psychological History: No Psychological Hx Reported Smoking Status: Former smoker Past Alcohol Use History: None Reported Past Drug Use History: None Reported - Past Family History Mother Family Medical History: Myocardial Infarction ([place]) General Exam Limitations: no limitations General appearance: alert, in no apparent distress Head exam: Present: atraumatic, normocephalic Eye exam: Present: normal appearance, PERRL, EOMI Neck exam: Present: normal inspection. Absent: tenderness Respiratory exam: Present: normal lung sounds bilaterally Cardiovascular Exam: Present: regular rate, normal rhythm Expanded Peripheral pulses: 2+: Radial (R), Radial (L), Posterior Tibialis (R), Posterior Tibialis (L) GI/Abdominal exam: Present: soft. Absent: distended, tenderness, pulsatile mass Extremities exam: Present: normal inspection. Absent: calf tenderness Neurological exam: Present: alert, oriented X3, CN II-XII intact. Absent: motor sensory deficit Expanded Neurological exam: Present: other (Mild to moderately garbled speech. Patient states this is normal.) Cranial nerves: EOM's Intact: Normal Motor strength exam: RUE: 5, LUE: 5, RLE: 5, LLE: 5 Eye Response: (4) open spontaneously Motor Response: (6) obeys commands Verbal Response: (5) oriented Psychiatric exam: Present: normal affect, normal mood Skin exam: Present: normal color Course Vital Signs 04/12/22 04/12/22 07:41 08:00 Temperature 97.3 F L Pulse Rate 57 L Respiratory 18 Rate Blood Pressure 123/65 Blood Pressure 120/64 [Right Arm Sitting] Blood Pressure 140/82 [Right Arm Standing] Blood Pressure 138/67 [Right Arm Supine] O2 Sat by Pulse 96 Oximetry EKG Findings - EKG Results: EKG: interpreted by DEANNA (Low QRS voltage. Nonspecific T waves.), sinus rhythm, normal axis EKG shows: bradycardia Medical Decision Making - Medical Decision Making Patient reevaluated and resting comfortably in bed. Patient remained symptom- free. Blood pressure has remained stable through several readings. states she was there with him this morning. She states patient did not pass out. She states patient does have history of hypotension, at least 6 or more times previously with similar problems. Patient feels fine at this time. They both would like to be discharged. They're updated on results. - Lab Data Result diagrams: 04/12/22 07:54 04/12/22 07:54 Lab Results 04/12/22 04/12/22 04/12/22 Range/Units 07:45 07:54 07:54 WBC 4.6 (3.8-10.6) k/uL RBC 3.34 L (4.30-5.90) m/uL Hgb 11.3 L (13.0-17.5) gm/dL Hct 32.4 L (39.0-53.0) % MCV 96.9 (80.0-100.0) fL MCH 33.7 (25.0-35.0) pg MCHC 34.8 (31.0-37.0) g/dL RDW 14.4 (11.5-15.5) % Plt Count 119 L (150-450) k/uL MPV 9.7 Neutrophils % 60 % Lymphocytes % 25 % Monocytes % 11 % Eosinophils % 2 % Basophils % 1 % Neutrophils # 2.7 (1.3-7.7) k/uL Lymphocytes # 1.2 (1.0-4.8) k/uL Monocytes # 0.5 (0-1.0) k/uL Eosinophils # 0.1 (0-0.7) k/uL Basophils # 0.0 (0-0.2) k/uL PT 11.6 (9.0-12.0) sec INR 1.1 (<1.2) APTT 24.4 (22.0-30.0) sec D-Dimer 0.48 (<0.60) mg/L FEU Sodium (137-145) mmol/L Potassium (3.5-5.1) mmol/L Chloride (98-107) mmol/L Carbon Dioxide (22-30) mmol/L Anion Gap mmol/L BUN (9-20) mg/dL Creatinine (0.66-1.25) mg/dL Est GFR (CKD-EPI)AfAm (>60 ml/min/1.73 sqM) Est GFR (CKD-EPI)NonAf (>60 ml/min/1.73 sqM) Glucose (74-99) mg/dL POC Glucose (mg/dL) 99 (70-110) mg/dL POC Glu Field Radio Technician ID Matt Marshall Calcium (8.4-10.2) mg/dL Magnesium (1.6-2.3) mg/dL Total Bilirubin (0.2-1.3) mg/dL AST (17-59) U/L ALT (4-49) U/L Alkaline Phosphatase (38-126) U/L Troponin I (0.000-0.034) ng/mL Total Protein (6.3-8.2) g/dL Albumin (3.5-5.0) g/dL Urine Color Urine Appearance (Clear) Urine pH (5.0-8.0) Ur Specific [place] (1.001-1.035) Urine Protein (Negative) Urine Glucose (UA) (Negative) Urine Ketones (Negative) Urine Blood (Negative) Urine Nitrite (Negative) Urine Bilirubin (Negative) Urine Urobilinogen (<2.0) mg/dL Ur Leukocyte Esterase (Negative) Urine RBC (0-5) /hpf Urine WBC (0-5) /hpf Ur Squamous Epith Cells (0-4) /hpf Calcium Oxalate Crystal (None) /hpf Hyaline Casts (0-2) /lpf Urine Mucus (None) /hpf Valproic Acid ug/mL 04/12/22 04/12/22 04/12/22 Range/Units 07:54 07:54 08:04 WBC (3.8-10.6) k/uL RBC (4.30-5.90) m/uL Hgb (13.0-17.5) gm/dL Hct (39.0-53.0) % MCV (80.0-100.0) fL MCH (25.0-35.0) pg MCHC (31.0-37.0) g/dL RDW (11.5-15.5) % Plt Count (150-450) k/uL MPV Neutrophils % % Lymphocytes % % Monocytes % % Eosinophils % % Basophils % % Neutrophils # (1.3-7.7) k/uL Lymphocytes # (1.0-4.8) k/uL Monocytes # (0-1.0) k/uL Eosinophils # (0-0.7) k/uL Basophils # (0-0.2) k/uL PT (9.0-12.0) sec INR (<1.2) APTT (22.0-30.0) sec D-Dimer (<0.60) mg/L FEU Sodium 141 (137-145) mmol/L Potassium 3.3 L (3.5-5.1) mmol/L Chloride 107 (98-107) mmol/L Carbon Dioxide 34 H (22-30) mmol/L Anion Gap 0 mmol/L BUN 18 (9-20) mg/dL Creatinine 0.62 L (0.66-1.25) mg/dL Est GFR (CKD-EPI)AfAm >90 (>60 ml/min/1.73 sqM) Est GFR (CKD-EPI)NonAf >90 (>60 ml/min/1.73 sqM) Glucose 92 (74-99) mg/dL POC Glucose (mg/dL) (70-110) mg/dL POC Glu Field Radio Technician ID Calcium 8.6 (8.4-10.2) mg/dL Magnesium 1.6 (1.6-2.3) mg/dL Total Bilirubin 0.6 (0.2-1.3) mg/dL AST 22 (17-59) U/L ALT 14 (4-49) U/L Alkaline Phosphatase 38 (38-126) U/L Troponin I <0.012 (0.000-0.034) ng/mL Total Protein 4.9 L (6.3-8.2) g/dL Albumin 2.4 L (3.5-5.0) g/dL Urine Color Yellow Urine Appearance Cloudy (Clear) Urine pH 6.0 (5.0-8.0) Ur Specific [place] 1.033 (1.001-1.035) Urine Protein 1+ H (Negative) Urine Glucose (UA) Trace H (Negative) Urine Ketones 2+ H (Negative) Urine Blood Negative (Negative) Urine Nitrite Negative (Negative) Urine Bilirubin 1+ H (Negative) Urine Urobilinogen 2.0 (<2.0) mg/dL Ur Leukocyte Esterase Negative (Negative) Urine RBC 1 (0-5) /hpf Urine WBC 5 (0-5) /hpf Ur Squamous Epith Cells 1 (0-4) /hpf Calcium Oxalate Crystal Occasional H (None) /hpf Hyaline Casts 5 H (0-2) /lpf Urine Mucus Many H (None) /hpf Valproic Acid 48.5 ug/mL - Radiology Data Radiology results: report reviewed (CT brain shows atrophy. No acute process) Interpreted by me: Chest x-ray shows possible effusions and lateral view. Disposition Clinical Impression: Hypotensive episode Disposition: HOME SELF-CARE Condition: Stable Instructions (If sedation given, give patient instructions): Hypotension (ED), Near Syncope (ED) Additional Instructions: Please do follow-up with your primary care physician in the next day or 2 for recheck. Return for low blood pressure, weakness, falling, confusion, worsening or changing symptoms or any other concerns. Is patient prescribed a controlled substance at d/c from ED?: No Referrals: Edu Maynard MD [Primary Care Provider] - 1-2 days Time of Disposition: 09:13
[2022-04-12 07:53] VITALS: RESP 18; TEMP 97.3
[2022-04-12 08:12] LABS: Basophils % (A) 1 %; Eosinophils # (A) 0.1 k/uL (0-0.7); Eosinophils % (A) 2 %; HCT 32.4 % (39.0-53.0); HGB 11.3 gm/dL (13.0-17.5); Lymphocytes # (A) 1.2 k/uL (1.0-4.8); Lymphocytes % (A) 25 %; MCH 33.7 pg (25.0-35.0); MCHC 34.8 g/dL (31.0-37.0); MCV 96.9 fL (80.0-100.0); Mean Platelet Volume 9.7; Monocytes # (A) 0.5 k/uL (0-1.0); Monocytes % (A) 11 %; Neutrophils # (A) 2.7 k/uL (1.3-7.7); Neutrophils % (A) 60 %; Platelet Count 119 k/uL (150-450); RBC 3.34 m/uL (4.30-5.90); RDW 14.4 % (11.5-15.5); WBC 4.6 k/uL (3.8-10.6)
[2022-04-12 08:22] LABS: INR 1.1 (<1.2); Partial Thromboplastin Time 24.4 sec (22.0-30.0); Prothrombin Time 11.6 sec (9.0-12.0)
[2022-04-12 08:27] LABS: ALT 14 U/L (4-49); AST 22 U/L (17-59); African American GFR (CKD) >90 (>60 ml/min/1.73 sqM); Albumin 2.4 g/dL (3.5-5.0); Alkaline Phosphatase 38 U/L (38-126); Anion Gap 0 mmol/L; Blood Urea Nitrogen 18 mg/dL (9-20); Calcium 8.6 mg/dL (8.4-10.2); Carbon Dioxide 34 mmol/L (22-30); Chloride 107 mmol/L (98-107); Glucose 92 mg/dL (74-99); Magnesium 1.6 mg/dL (1.6-2.3); Non-African American GFR(CKD) >90 (>60 ml/min/1.73 sqM); Potassium 3.3 mmol/L (3.5-5.1); Sodium 141 mmol/L (137-145); Total Bilirubin 0.6 mg/dL (0.2-1.3); Total Protein 4.9 g/dL (6.3-8.2)
--- NOTE | 2022-04-12 08:34 | XR ---
EXAMINATION TYPE: XR chest 2V DATE OF EXAM: 04/12/2022 COMPARISON: 03/16/2022 HISTORY: 71-year-old male syncope TECHNIQUE: AP and lateral views FINDINGS: Heart normal size. Supraclavicular device projects over the left side of the chest. Hyperinflation. T here are small bilateral pleural effusions are apparent on the lateral view. IMPRESSION: COPD. There are small bilateral pleural effusions apparent on the lateral view. Correlate as to etiol live.
[2022-04-12 08:41] LABS: Appearance,Urine Cloudy (Clear); Bilirubin,Urine 1+ (Negative); Blood,Urine Negative (Negative); Calcium Oxalate Crystals,Urine Occasional /hpf; Color,Urine Yellow; Glucose,Urine (UA) Trace (Negative); Hyaline Casts,Urine 5 /lpf (0-2); Ketones,Urine 2+ (Negative); Leukocyte Esterase,Urine Negative (Negative); Mucus,Urine Many /hpf; Nitrite,Urine Negative (Negative); Protein,Urine 1+ (Negative); RBC,Urine 1 /hpf (0-5); Specific Gravity,Urine 1.033 (1.001-1.035); Squamous Epithelial Cell,Urine 1 /hpf (0-4); WBC,Urine 5 /hpf (0-5)
--- NOTE | 2022-04-12 08:42 | CT ---
EXAMINATION TYPE: CT brain wo con DATE OF EXAM: 04/12/2022 COMPARISON: 03/16/2020 HISTORY: Fall, Hypotension CT DLP: 1220.[address] of the brain was performed. The ventricles, basal cisterns and sulci overlying the cerebral convexities demonstrate mild enlargem ent. Stable remote insult left frontal lobe. There is no evidence for intracranial hemorrhage or sulcal effacement. There is decreased attenuation about the periventricular white matter and deep white matter of both c erebral hemispheres, compatible with chronic small vessel ischemia. Differential diagnosis does inclu de demyelination. No mass effects are seen.No midline shift. Osseous calvarium is intact. If symptoms persist consider MRI. IMPRESSION: 1. Age related atrophic and chronic small vessel ischemic change without acute intracranial process s een at this time.
[2022-04-12] MEDS ORDERED: POTASSIUM CHLORIDE ER 20 MEQ TAB.ER PO STA (08:44)
[2022-04-12 08:56] LABS: Valproic Acid (Depakene) 48.5 ug/mL
[2022-04-12 09:16] VITALS: PULSE 58
[2022-04-12 09:35] VITALS: BP 130/61
== END 2022-04-12 09:36 | disposition home or self-care (01) ==
LOC: EC 07:38
DX: I95.9 Hypotension, unspecified (principal); I48.91 Unspecified atrial fibrillation; G45.9 Transient cerebral ischemic attack, unspecified; K21.9 Gastro-esophageal reflux disease without esophagitis; I26.99 Other pulmonary embolism without acute cor pulmonale; Z86.718 Personal history of other venous thrombosis and embolism; Z87.891 Personal history of nicotine dependence; Z79.899 Other long term (current) drug therapy; Z79.01 Long term (current) use of anticoagulants
CPT/HCPCS: 36415; 70450; 71046; 80053; 80164; 80177; 81001; 83735; 84484; 85025; 85379; 85610; 85730; 93005; 96360; 99285

== ENCOUNTER 2022-07-24 09:29 | Day surgery (SDC) | payer MEDICARE ==
[~2022-07-24 09:29] MED LIST changes: -ALPRAZolam 0.25 MG TAB PO PRN; -ALPRAZolam 0.5 MG TAB PO PRN; -ASPIRIN 325 MG TAB PO STA; +LACTATED RINGERS 1,000 ML IV SCH; +LIDOCAINE 1% (10MG/ML) FOR IV START INTRADERMA PRN; -NITROGLYCERIN SL TABS 0.4 MG TAB SUBLINGUAL PRN; -SODIUM CHLORIDE 0.9% 1,000 ML in EMPTY BAG 1 BAG IV SCH
[2022-07-24 10:24] VITALS: TEMP 97.3
[2022-07-24] MEDS ORDERED: PROPOFOL 10 MG/ML 20 ML VIAL IV ONE (11:19)
[2022-07-24] MEDS ORDERED: LIDOCAINE 2% INJ 20 MG/ML (2 ML VIAL) ONE (11:19)
--- NOTE | 2022-07-24 11:35 | P.PCN ---
Date of Procedure: 07/24/22 Procedure(s) Performed: BRIEF HISTORY: Patient is [id number] white male scheduled for an elective colonoscopy as a part of screening for colon cancer. Last colonoscopy was 10 years ago. PROCEDURE PERFORMED: Colonoscopy. PREOPERATIVE DIAGNOSIS: Screening for colon cancer. IV sedation per Anesthesia. PROCEDURE: After informed consent was obtained, the patient, was brought into the endoscopy unit. IV sedation was administered by Anesthesia under continuous monitoring. Digital rectal examination was normal. Initially the Olympus CF-160 flexible video colonoscope was then inserted in the rectum, gradually advanced into the cecum without any difficulty. Careful examination was performed as the scope was gradually being withdrawn. Ileocecal valve and the appendiceal orifice were visualized and appeared normal. Prep was excellent. Mucosa of the cecum, ascending colon, transverse colon, descending colon, sigmoid colon, and rectum appeared normal. Moderate sigmoid diverticulosis. Retroflexion was performed in the rectum and no lesions were seen. The patient tolerated the procedure well. IMPRESSION: Normal-appearing colon from rectum to cecum with no evidence of colorectal neoplasia Moderate left-sided diverticulosis RECOMMENDATIONS: Findings of this examination were discussed with the patient as well as his family. He was advised to have a repeat screening colonoscopy in 10 years..
[2022-07-24 11:41] VITALS: RESP 16
[2022-07-24 12:02] VITALS: BP 122/71; PULSE 70
== END 2022-07-24 12:25 | disposition home or self-care (01) ==
LOC: ORWHC2ENDO 09:29
PROVIDERS: ATTEND Internal Medicine Gastroenterology
DX: Z12.11 Encounter for screening for malignant neoplasm of colon (principal); K57.30 Diverticulosis of large intestine without perforation or abscess without bleeding; I48.91 Unspecified atrial fibrillation; K21.9 Gastro-esophageal reflux disease without esophagitis; Z87.891 Personal history of nicotine dependence; Z86.73 Personal history of transient ischemic attack (TIA), and cerebral infarction without residual deficits; Z79.899 Other long term (current) drug therapy
CPT/HCPCS: 45378

== ENCOUNTER → 2022-07-30 | Outpatient (CLI) | payer MEDICARE | END | disposition home or self-care (01) | LOC: LABWHC1 07:08 | PROVIDERS: ATTEND Psychiatry & Neurology Neurology | DX: R56.9 Unspecified convulsions (principal) | CPT/HCPCS: 36415; 80164 ==

== ENCOUNTER 2022-09-20 06:10 | Emergency (ER) | payer MEDICARE ==
[2022-09-20 06:15] VITALS: BP 147/88; PULSE 60; RESP 18; TEMP 97.6
[2022-09-20 06:47] LABS: Basophils % (A) 0 %; Eosinophils # (A) 0.1 k/uL (0-0.7); Eosinophils % (A) 2 %; HCT 36.5 % (39.0-53.0); HGB 12.4 gm/dL (13.0-17.5); Lymphocytes # (A) 2.1 k/uL (1.0-4.8); Lymphocytes % (A) 40 %; MCH 32.1 pg (25.0-35.0); MCV 94.3 fL (80.0-100.0); Mean Platelet Volume 8.5; Monocytes # (A) 0.5 k/uL (0-1.0); Monocytes % (A) 10 %; Neutrophils # (A) 2.4 k/uL (1.3-7.7); Neutrophils % (A) 46 %; Platelet Count 144 k/uL (150-450); RBC 3.87 m/uL (4.30-5.90); RDW 14.7 % (11.5-15.5); WBC 5.3 k/uL (3.8-10.6)
--- NOTE | 2022-09-20 06:54 | ED ---
Extremity Problem HPI - General Chief complaint: Extremity Problem,Nontraumatic Stated complaint: Adema Time Seen by Provider: 09/20/22 06:20 Source: patient, family, RN notes reviewed Mode of arrival: wheelchair Limitations: physical limitation - History of Present Illness Initial comments: 71-year-old male presents emergency Department chief complaint leg swelling. Patient states shows has leg swelling bilaterally but since it slightly worse today in his good foot he noticed some increasing swelling, discomfort and felt slightly red. No history of gout denies being diabetic no open lesions or sores. Patient has no history DVT. Patient primarily was on Lasix but was removed secondary to blood pressure issues. Patient denies any chest pain or shortness of breath. - Related Data Home Medications Medication Instructions Recorded Confirmed Divalproex Sodium [Depakote] 500 mg PO TID@0800,1400,199904/05/21 07/24/22 Pantoprazole [Protonix] 40 mg PO DAILY@0800 04/05/21 07/24/22 levETIRAcetam [Keppra] 1,000 mg PO BID@0800,199904/05/21 07/24/22 Aspirin EC [Ecotrin Low Dose] 81 mg PO HS@199912/25/21 07/24/22 Atorvastatin Calcium [Lipitor] 40 mg PO HS@199912/25/21 07/24/22 Clonazepam 0.5mg Odt Tab 0.5 mg PO DAILY PRN 12/25/21 07/24/22 Cyanocobalamin (Vitamin B-12) 1,000 mcg PO DAILY@1400 12/25/21 07/24/22 [Vitamin B-12] levETIRAcetam [Keppra] 250 mg PO BID@0800,199912/25/21 07/24/22 Previous Rx's Medication Instructions Recorded Fludrocortisone [Florinef] 0.05 mg PO DAILY #30 tab 01/23/22 Midodrine [ProAmatine] 10 mg PO AC-TID #90 tab 01/23/22 Folic Acid 1 mg PO DAILY #30 tab 01/24/22 Allergies Allergy/AdvReac Type Severity Reaction Status Date / Time No Known Allergies Allergy Verified 09/20/22 06:15 Review of Systems ROS Statement: Those systems with pertinent positive or pertinent negative responses have been documented in the HPI. ROS Other: All systems not noted in ROS Statement are negative. 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, DVT RT leg and RT PE 2017, uses a cane, last seizure "one week ago" History of Any Multi-Drug Resistant Organisms: None Reported Past Surgical History: Back Surgery, Joint Replacement Additional Past Surgical History / Comment(s): b/l knee replacements Past Anesthesia/Blood Transfusion Reactions: No Reported Reaction Past Psychological History: No Psychological Hx Reported Smoking Status: Former smoker Past Alcohol Use History: None Reported Past Drug Use History: None Reported - Past Family History Mother Family Medical History: Myocardial Infarction ([place]) General Exam Limitations: physical limitation General appearance: alert, in no apparent distress Head exam: Present: atraumatic, normocephalic, normal inspection Eye exam: Present: normal appearance, PERRL, EOMI. Absent: scleral icterus, conjunctival injection, periorbital swelling Respiratory exam: Present: normal lung sounds bilaterally. Absent: respiratory distress, wheezes, rales, rhonchi, stridor Cardiovascular Exam: Present: regular rate, normal rhythm, normal heart sounds. Absent: systolic murmur, diastolic murmur, rubs, gallop, clicks Extremities exam: Present: other (Bilateral leg swelling noted, there is minimal erythema in the left, there is no severe times with palpation neurovascular intact old surgical scar noted left knee) Neurological exam: Present: alert, oriented X3 Course Vital Signs 09/20/22 06:13 Temperature 97.6 F Pulse Rate 60 Respiratory 18 Rate Blood Pressure 147/88 O2 Sat by Pulse 98 Oximetry Medical Decision Making - Medical Decision Making Was pt. sent in by a medical professional or institution (, PA, HOSE INSPECTOR AND PATCHER, urgent care, hospital, or residential...) When possible be specific @ -No Did you speak to anyone other than the patient for history (EMS, parent, family, police, friend...)? What history was obtained from this source @ -[ arise symptom past medical history and current complaint Did you review nursing and triage notes (agree or disagree)? Why? @ -I reviewed and agree with nursing and triage notes Were old charts reviewed (outside hosp., previous admission, EMS record, old EKG, old radiological studies, urgent care reports/EKG's, residential records)? Report findings @ -No old charts were reviewed Differential Diagnosis (chest pain, altered mental status, abdominal pain women, abdominal pain men, vaginal bleeding, weakness, fever, dyspnea, syncope, headache, dizziness, GI bleed, back pain, seizure, CVA, palpatations, mental health, musculoskeletal)? @ -Leg edema, cellulitis, DVT, gout EKG interpreted by me (3pts min.). @ -None X-rays interpreted by me (1pt min.). @ -None done CT interpreted by me (1pt min.). @ -None done U/S interpreted by me (1pt. min.). @ -Ultrasound shows no evidence of acute DVT What testing was considered but not performed or refused? (CT, X-rays, U/S, labs)? Why? @ -None What meds were considered but not given or refused? Why? @ -None Did you discuss the management of the patient with other professionals (professionals i.e. , PA, HOSE INSPECTOR AND PATCHER, lab, RT, psych nurse, social insurance specialist, bell ringer, teacher, staff mine warfare officer, case briefer)? Give summary @ -No Was smoking cessation discussed for >3mins.? @ -No Was critical care preformed (if so, how long)? @ -No Were there social determinants of health that impacted care today? How? (Homelessness, low income, unemployed, alcoholism, drug addiction, transportation, low edu. Level, literacy, decrease access to med. care, intermediate, rehab)? @ -No Was there de-escalation of care discussed even if they declined (Discuss DNR or withdrawal of care, Hospice)? DNR status @ -No What co-morbidities impacted this encounter? (DM, HTN, Smoking, COPD, CAD, Cancer, CVA, ARF, Chemo, Hep., AIDS, mental health diagnosis, sleep apnea, morbid obesity)? @ -CVA Was patient admitted / discharged? Hospital course, mention meds given and route, prescriptions, significant lab abnormalities, going to OR and other pertinent info. @ -Discharge patient has negative ultrasound, laboratory is unremarkable patient is chronic swelling there is no lesions or abscesses signs of infection we discussed possibility of early gout patient will take a car pain medication as directed and will follow-up with PCP Undiagnosed new problem with uncertain prognosis? @ -No Drug Therapy requiring intensive monitoring for toxicity (Heparin, Nitro, Insulin, Cardizem)? @ -No Were any procedures done? @ -No Diagnosis/symptom? @ -Leg edema, leg pain Acute, or Chronic, or Acute on Chronic? @ -Acute Uncomplicated (without systemic symptoms) or Complicated (systemic symptoms)? @ -Uncomplicated Side effects of treatment? @ -No Exacerbation, Progression, or Severe Exacerbation? @ -No Poses a threat to life or bodily function? How? (Chest pain, USA, HI, pneumonia, PE, COPD, DKA, ARF, appy, cholecystitis, CVA, Diverticulitis, Homicidal, Suicidal, threat to staff... and all critical care pts) @ -No - Lab Data Result diagrams: 09/20/22 06:38 09/20/22 06:38 Lab Results 09/20/22 09/20/22 Range/Units 06:38 06:38 WBC 5.3 (3.8-10.6) k/uL RBC 3.87 L (4.30-5.90) m/uL Hgb 12.4 L (13.0-17.5) gm/dL Hct 36.5 L (39.0-53.0) % MCV 94.3 (80.0-100.0) fL MCH 32.1 (25.0-35.0) pg MCHC 34.0 (31.0-37.0) g/dL RDW 14.7 (11.5-15.5) % Plt Count 144 L (150-450) k/uL MPV 8.5 Neutrophils % 46 % Lymphocytes % 40 % Monocytes % 10 % Eosinophils % 2 % Basophils % 0 % Neutrophils # 2.4 (1.3-7.7) k/uL Lymphocytes # 2.1 (1.0-4.8) k/uL Monocytes # 0.5 (0-1.0) k/uL Eosinophils # 0.1 (0-0.7) k/uL Basophils # 0.0 (0-0.2) k/uL Sodium 141 (137-145) mmol/L Potassium 3.9 (3.5-5.1) mmol/L Chloride 107 (98-107) mmol/L Carbon Dioxide 30 (22-30) mmol/L Anion Gap 4 mmol/L BUN 15 (9-20) mg/dL Creatinine 0.79 (0.66-1.25) mg/dL Est GFR (CKD-EPI)AfAm >90 (>60 ml/min/1.73 sqM) Est GFR (CKD-EPI)NonAf >90 (>60 ml/min/1.73 sqM) Glucose 85 (74-99) mg/dL Calcium 8.8 (8.4-10.2) mg/dL Total Bilirubin 0.7 (0.2-1.3) mg/dL AST 23 (17-59) U/L ALT 16 (4-49) U/L Alkaline Phosphatase 50 (38-126) U/L Total Protein 5.5 L (6.3-8.2) g/dL Albumin 2.8 L (3.5-5.0) g/dL Disposition Clinical Impression: Leg pain, Leg edema Disposition: HOME SELF-CARE Condition: Stable Instructions (If sedation given, give patient instructions): Leg Edema (ED) Additional Instructions: Please return to the Emergency Department if symptoms worsen or any other concerns. Is patient prescribed a controlled substance at d/c from ED?: No Referrals: None,Stated [Primary Care Provider] - 1-2 days Time of Disposition: 07:35
[2022-09-20 06:58] LABS: ALT 16 U/L (4-49); AST 23 U/L (17-59); African American GFR (CKD) >90 (>60 ml/min/1.73 sqM); Albumin 2.8 g/dL (3.5-5.0); Alkaline Phosphatase 50 U/L (38-126); Anion Gap 4 mmol/L; Blood Urea Nitrogen 15 mg/dL (9-20); Calcium 8.8 mg/dL (8.4-10.2); Carbon Dioxide 30 mmol/L (22-30); Chloride 107 mmol/L (98-107); Glucose 85 mg/dL (74-99); Non-African American GFR(CKD) >90 (>60 ml/min/1.73 sqM); Potassium 3.9 mmol/L (3.5-5.1); Sodium 141 mmol/L (137-145); Total Bilirubin 0.7 mg/dL (0.2-1.3); Total Protein 5.5 g/dL (6.3-8.2)
--- NOTE | 2022-09-20 07:28 | US ---
EXAMINATION TYPE: US venous doppler duplex LE LT DATE OF EXAM: 09/20/2022 7:15 AM COMPARISON: NONE CLINICAL INDICATION: Male, 71 years old with history of pain; left leg pain and edema SIDE PERFORMED: left TECHNIQUE: The lower extremity deep venous system is examined utilizing real time linear array sonog yaniv with graded compression, doppler sonography and color-flow sonography. VESSELS IMAGED: Common Femoral Vein Deep Femoral Vein Greater Saphenous Vein * Femoral Vein Popliteal Vein Small Saphenous Vein * Proximal Calf Veins (* superficial vessels) Left Leg: no evidence of DVT IMPRESSION: Grayscale, color doppler, spectral doppler imaging performed of the deep veins of the lo wer extremities. There is normal flow, compressibility, vascular waveforms.
== END 2022-09-20 07:30 | disposition home or self-care (01) ==
LOC: EC 06:10
DX: R60.0 Localized edema (principal); I48.91 Unspecified atrial fibrillation; K21.9 Gastro-esophageal reflux disease without esophagitis; Z86.73 Personal history of transient ischemic attack (TIA), and cerebral infarction without residual deficits; Z86.711 Personal history of pulmonary embolism; Z87.891 Personal history of nicotine dependence; Z79.82 Long term (current) use of aspirin; Z79.899 Other long term (current) drug therapy
CPT/HCPCS: 36415; 80053; 85025; 99284

== ENCOUNTER → 2023-09-12 | Outpatient (CLI) | payer MEDICARE | END | disposition home or self-care (01) | LOC: LABWHC1 07:13 | PROVIDERS: ATTEND Psychiatry & Neurology Neurology | DX: R56.9 Unspecified convulsions (principal) | CPT/HCPCS: 36415; 80164; 80177 ==

== ENCOUNTER 2024-01-13 09:24 | Emergency (ER) | payer MEDICARE ==
[2024-01-13 09:28] VITALS: RESP 18
--- NOTE | 2024-01-13 10:34 | XR ---
EXAMINATION TYPE: XR lumbar spine 2 or 3V DATE OF EXAM: 01/13/2024 COMPARISON: None HISTORY: Nontraumatic back pain and difficulty walking TECHNIQUE: 3 view lumbar spine FINDINGS: 5 lumbar type vertebral bodies. Pedicles are intact. There is loss of disc height throughou t the lumbar spine. Spondylosis is present. There is straightening of the lumbar spine. No spondyloli sthesis is evident. Follow up MRI can be performed as clinically indicated. IMPRESSION: 1. Multilevel degenerative disc changes with spondylosis. [facility], , 01/13/2024 10:32 AM
--- NOTE | 2024-01-13 11:42 | ED ---
Back Pain HPI - General Chief Complaint: Back Pain/Injury Stated Complaint: Both Leg Pain Time Seen by Provider: 01/13/24 09:38 Source: patient, RN notes reviewed Limitations: no limitations - History of Present Illness Initial Comments: This is a 73-year-old male who presents to the emergency department accompanied by his with chief complaint of lumbar back pain that has been present over the past 3 days. Patient denies recent falls or injuries to his lumbar spine. States that pain is exacerbated with range of motion. Denies loss of bladder or bowel continence or saddle anesthesias. Patient had surgery completed in his lumbar spine approximately 15 years ago. Denies radiation of pain into his abdomen, chest pain, urinary symptoms, shortness of breath. 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 He has been attempting to use lidocaine patches at home with minimal relief. States he has not attempted Tylenol or Motrin. - Related Data Home Medications Medication Instructions Recorded Confirmed Divalproex Sodium [Depakote] 500 mg PO TID@0800,1400,199904/05/21 07/24/22 Pantoprazole [Protonix] 40 mg PO DAILY@0800 04/05/21 07/24/22 levETIRAcetam [Keppra] 1,000 mg PO BID@08,199904/05/21 07/24/22 Aspirin EC [Ecotrin Low Dose] 81 mg PO HS@199912/25/21 07/24/22 Atorvastatin Calcium [Lipitor] 40 mg PO HS@199912/25/21 07/24/22 Clonazepam 0.5mg Odt Tab 0.5 mg PO DAILY PRN 12/25/21 07/24/22 Cyanocobalamin (Vitamin B-12) 1,000 mcg PO DAILY@1400 12/25/21 07/24/22 [Vitamin B-12] levETIRAcetam [Keppra] 250 mg PO BID@0800,199912/25/21 07/24/22 Previous Rx's Medication Instructions Recorded Fludrocortisone [Florinef] 0.05 mg PO DAILY #30 tab 01/23/22 Midodrine [ProAmatine] 10 mg PO AC-TID #90 tab 01/23/22 Folic Acid 1 mg PO DAILY #30 tab 01/24/22 Cyclobenzaprine [Flexeril] 5 mg PO TID PRN #15 tablet 01/13/24 Allergies Allergy/AdvReac Type Severity Reaction Status Date / Time No Known Allergies Allergy Verified 01/13/24 09:28 Review of Systems ROS Statement: Those systems with pertinent positive or pertinent negative responses have been documented in the HPI. ROS Other: All systems not noted in ROS Statement are negative. 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, DVT RT leg and RT PE 2017, uses a cane, last seizure "one week ago" History of Any Multi-Drug Resistant Organisms: None Reported Past Surgical History: Back Surgery, Joint Replacement Additional Past Surgical History / Comment(s): b/l knee replacements Past Anesthesia/Blood Transfusion Reactions: No Reported Reaction Past Psychological History: No Psychological Hx Reported Smoking Status: Former smoker Past Alcohol Use History: None Reported Past Drug Use History: None Reported - Past Family History Mother Family Medical History: Myocardial Infarction ([place]) General Exam Limitations: no limitations General appearance: alert, in no apparent distress Head exam: Present: atraumatic, normocephalic, normal inspection Eye exam: Present: normal appearance, PERRL, EOMI. Absent: scleral icterus, conjunctival injection, periorbital swelling ENT exam: Present: normal exam, mucous membranes moist Respiratory exam: Present: normal lung sounds bilaterally. Absent: respiratory distress, wheezes, rales, rhonchi, stridor Cardiovascular Exam: Present: regular rate, normal rhythm, normal heart sounds. Absent: systolic murmur, diastolic murmur, rubs, gallop, clicks GI/Abdominal exam: Present: soft, normal bowel sounds. Absent: distended, tenderness, guarding, rebound, rigid Extremities exam: Present: normal inspection, full ROM, normal capillary refill. Absent: tenderness, pedal edema, joint swelling, calf tenderness Back exam: Present: normal inspection, tenderness (lumbar spine). Absent: CVA tenderness (R), CVA tenderness (L), muscle spasm, paraspinal tenderness Neurological exam: Present: alert, oriented X3, CN II-XII intact Skin exam: Present: warm, dry, intact, normal color. Absent: rash Course Vital Signs 01/13/24 01/13/24 09:25 12:19 Temperature 97.4 F L 98.0 F Pulse Rate 72 76 Respiratory 18 18 Rate Blood Pressure 119/62 122/68 O2 Sat by Pulse 98 98 Oximetry Medical Decision Making - Medical Decision Making Was pt. sent in by a medical professional or institution ([facility], CATIA DESIGNER, urgent care, hospital, or [facility]...) When possible be specific @ -No Did you speak to anyone other than the patient for history (EMS, parent, family, police, friend...)? What history was obtained from this source @ -I spoke to the patient's at bedside he states that the patient has been complaining of lumbar back pain that has been worsening over the past few days. Did you review nursing and triage notes (agree or disagree)? Why? @ -I reviewed and agree with nursing and triage notes Were old charts reviewed (outside hosp., previous admission, EMS record, old EKG, old radiological studies, urgent care reports/EKG's, [facility] records)? Report findings @ -No old charts were reviewed Differential Diagnosis (chest pain, altered mental status, abdominal pain women, abdominal pain men, vaginal bleeding, weakness, fever, dyspnea, syncope, headache, dizziness, GI bleed, back pain, seizure, CVA, palpatations, mental health, musculoskeletal)? @ -Differential Back Pain: Strain, zoster, cauda equina syndrome, epidural abscess, vertebral osteomyelitis, discitis, fracture, subluxation, disc herniation, DJD, spinal stenosis, dissection, AAA, pancreatitis, peptic ulcer disease, pyelonephritis, kidney stone, this is not meant to be an all-inclusive list. EKG interpreted by me (3pts min.). @ -None X-rays interpreted by me (1pt min.). @ -X-ray of the lumbar spine reveals multilevel degeneration disc changes with spondylosis CT interpreted by me (1pt min.). @ -None done U/S interpreted by me (1pt. min.). @ -None done What testing was considered but not performed or refused? (CT, X-rays, U/S, labs)? Why? @ -None What meds were considered but not given or refused? Why? @ -None Did you discuss the management of the patient with other professionals (professionals i.e. Dr., PA, CATIA DESIGNER, lab, RT, psych nurse, social work faculty member, pipe covering molder, teacher, chief juvenile probation officer, mattress spring encaser)? Give summary @ -No Was smoking cessation discussed for >3mins.? @ -No Was critical care preformed (if so, how long)? @ -No Were there social determinants of health that impacted care today? How? (Homelessness, low income, unemployed, alcoholism, drug addiction, transportation, low edu. Level, literacy, decrease access to med. care, fpc, rehab)? @ -No Was there de-escalation of care discussed even if they declined (Discuss DNR or withdrawal of care, Hospice)? DNR status @ -No What co-morbidities impacted this encounter? (DM, HTN, Smoking, COPD, CAD, Cancer, CVA, ARF, Chemo, Hep., AIDS, mental health diagnosis, sleep apnea, morbid obesity)? @ -None Was patient admitted / discharged? Hospital course, mention meds given and route, prescriptions, significant lab abnormalities, going to OR and other pertinent info. @ -Discharged. 73-year-old male with lumbar back pain. Patient is resting comfortably no signs of acute distress. He is denying red flag symptoms concerning for further pathology such as loss of bladder or bowel continence or saddle anesthesias. Patient does have radiation of pain down bilateral lower extremities which is consistent with sciatica. Patient is neuro vastly intact bilaterally. Patient is provided with dose of steroids emergency department and pain medication and will be sent a prescription for muscle relaxers. Discussed that patient should only take this medication strictly as needed and recommend he takes this at night as it can cause drowsiness. All questions answered at bedside strict return parameters yuval the patient he is verbalized understanding. Discussed with Dr. Recio Undiagnosed new problem with uncertain prognosis? @ -No Drug Therapy requiring intensive monitoring for toxicity (Heparin, Nitro, Insulin, Cardizem)? @ -No Were any procedures done? @ -No Diagnosis/symptom? @ -Lumbar back pain Acute, or Chronic, or Acute on Chronic? @ -Acute Uncomplicated (without systemic symptoms) or Complicated (systemic symptoms)? @ -uncomplicated Side effects of treatment? @ -No Exacerbation, Progression, or Severe Exacerbation? @ -No Poses a threat to life or bodily function? How? (Chest pain, USA, ND, pneumonia, PE, COPD, DKA, ARF, appy, cholecystitis, CVA, Diverticulitis, Homicidal, [place] icidal, threat to staff... and all critical care pts) @ -No Disposition Clinical Impression: Sciatica, Lumbar back pain Disposition: HOME SELF-CARE Condition: Good Instructions (If sedation given, give patient instructions): Sciatica (ED) Additional Instructions: Return to the emergency department for any new or worsening symptoms. Recommend that you continue lidocaine patches and use of Tylenol Motrin at home. Use muscle relaxer only as needed recommend that you use this at night at this may cause drowsiness Prescriptions: Cyclobenzaprine [Flexeril] 5 mg PO TID PRN #15 tablet PRN Reason: Muscle Spasm Is patient prescribed a controlled substance at d/c from ED?: No Referrals: Edu Maynard MD [Primary Care Provider] - 1-2 days Time of Disposition: 12:05
[2024-01-13] MEDS: MORPHINE SULFATE 4 MG/ML SYRINGE IM STA (12:13)
[2024-01-13] MEDS: methylPREDNISolone SOD SUCCI 125 MG/2 ML VIAL IM ONE (12:13)
[2024-01-13 12:20] VITALS: BP 122/68; PULSE 76; TEMP 98
== END 2024-01-13 13:10 | disposition home or self-care (01) ==
LOC: EC 09:24
CPT/HCPCS: 72100; 96372; 99283

== ENCOUNTER → 2024-03-05 | Outpatient (CLI) | payer MEDICARE ==
[2024-03-05 08:27] LABS: African American GFR (CKD) >90 (>60 ml/min/1.73 sqM); Blood Urea Nitrogen 13 mg/dL (9-20); Non-African American GFR(CKD) 83 (>60 ml/min/1.73 sqM)
--- NOTE | 2024-03-08 20:16 | CT ---
EXAMINATION TYPE: CT iac w con DATE OF EXAM: 03/05/2024 8:50 AM COMPARISON: None. CLINICAL INDICATION: Male, 73 years old with history of H91.90 UNSPECIFIED HEARING LOSS, UNSPECIFIED EAR, bilateral hearing loss, Lung cancer screening, History of tobacco use. TECHNIQUE: Axial 1 mm thick sections reconstructed images in coronal and sagittal planes. Contrast used:100 mL of Isovue 300 with IV Contrast, (none if empty) Oral contrast used: (none if empty) FINDINGS: Note is made of a right septal deviation. Mastoid air cells are clear. Incus and malleus have normal orientation. Cochlea and semicircular canals are normal. High riding jugular bulbs are present bilate rally more so on the left. Middle ears are clear. External auditory canals are clear internal affairs investigator y canals appear normal without expansion or erosion semicircular canals appear normal. There is limit ed visualization of the brain. No obvious cerebellar pontine angle masses. IMPRESSION: 1. NO SUSPICIOUS ABNORMALITY INTERNAL AUDITORY CANALS [facility], , 03/08/2024 8:14 PM
== END | disposition home or self-care (01) ==
LOC: RADCTMAIN 07:29
PROVIDERS: ATTEND Otolaryngology
DX: H91.93 Unspecified hearing loss, bilateral (principal); Z87.891 Personal history of nicotine dependence
CPT/HCPCS: 82565; 84520; 70481; 36415; Q9967